=== PATIENT | female | born 1930 | race Caucasian/White ===

== ENCOUNTER → 2017-01-28 | Outpatient (CLI) | payer MEDICARE, BC | LOC: MW.CHFP 14:14 | PROVIDERS: ATTEND Physician Assistant | DX: R79.0 Abnormal level of blood mineral (principal); J44.9 Chronic obstructive pulmonary disease, unspecified | CPT/HCPCS: 36415; 83735; 99214 ==

== ENCOUNTER → 2017-01-31 | Outpatient (CLI) | payer MEDICARE, BC | LOC: MW.CHFP 08:00 | PROVIDERS: ATTEND Physician Assistant | DX: Z99.81 Dependence on supplemental oxygen (principal) ==

== ENCOUNTER → 2017-02-26 | Outpatient (CLI) | payer MEDICARE, BC | LOC: MW.CHIM 08:00 | PROVIDERS: ATTEND Internal Medicine | DX: I25.10 Atherosclerotic heart disease of native coronary artery without angina pectoris (principal); I50.9 Heart failure, unspecified; I10 Essential (primary) hypertension; E78.00 Pure hypercholesterolemia, unspecified | CPT/HCPCS: 99214 ==

== ENCOUNTER 2017-09-23 10:21 | Emergency (ER) | payer MEDICARE, BC ==
[2017-09-23] MEDS ORDERED: Sodium Chloride 0.9% 10 ML Syringe FLUSH PRN (10:23)
[2017-09-23] MEDS ORDERED: Sodium Chloride 0.9% 2.5 ML Syringe FLUSH PRN (10:23)
--- NOTE | 2017-09-23 10:31 | EDM.PDOC ---
ED HPI GENERAL MEDICAL PROBLEM - General Chief Complaint: Neuro Symptoms/Deficits Stated Complaint: LEFT SIDED WEAKNESS Time Seen by Provider: 09/23/17 10:22 - History of Present Illness INITIAL COMMENTS - FREE TEXT/NARRATIVE: HISTORY AND PHYSICAL: History of present illness: The patient is a 86-year-old female with a history of hypertension COPD CHF dyslipidemia MRI coronary artery disease and hypothyroidism who says that she has had TIAs in the past with the last one being 3 years ago and presents via EMS after having weakness in her left upper and lower extremity that started at 9:50 AM, 35 minutes ago at the time of this dictation. The patient states she got up at 4 AM and had a normal morning and when the symptoms started she was doing her normal activities. She has no speech changes she is not confused and she has no facial droop. She tells me that her leg is improving somewhat but she is unclear only stating that she was not able to walk on it earlier and now she is able to move it. She said she never fell passed out or blacked out and does have a headache but feels a little lightheaded and dizzy. She has no chest pain shortness of breath abdominal pain vomiting fevers chills or pain in her extremities. She has no neck or back pain. Accu-Chek per EMS was normal. Review of systems: As per history of present illness and below otherwise all systems reviewed and negative. Past medical history: As per history of present illness and as reviewed below otherwise noncontributory. Surgical history: As per history of present illness and as reviewed below otherwise noncontributory. Social history: No reported history of drug or alcohol abuse. Family history: As per history of present illness and as reviewed below otherwise noncontributory. Physical exam: Gen.: Well-developed well-nourished female who is nontoxic and speaking clearly and easily in the ED and moves in the bed without assistance with the exception of the left upper extremity. HEENT: Atraumatic, normocephalic, pupils reactive, negative for conjunctival pallor or scleral icterus, mucous membranes moist, throat clear, neck supple, nontender, trachea midline. Lungs: Clear to auscultation to manage breath sounds in the bases, breath sounds equal bilaterally, chest nontender. Heart: S1S2, regular rate and rhythm no overt murmurs Abdomen: Soft, nondistended, nontender. Negative for masses or hepatosplenomegaly. Slightly hypoactive bowel sounds and well-healed scars on the abdominal wall are seen. Pelvis: Stable nontender. Genitourinary: Deferred. Rectal: Deferred. Extremities: Atraumatic, negative for cords or calf pain. Neurovascular unremarkable. No pedal edema or leg asymmetry Neuro: Awake, alert, oriented. Cranial nerves II through XII unremarkable. Dorsi and plantar flexion is intact 5/5 inclusive of the great toe bilaterally. There is no drift in the left leg. 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 Speech is intact. Diagnostics: NIHSS, EKG CBC CMP INR TSH troponin UA chest x-ray CT scan of the head Therapeutics: IV O2 monitor, TPA 1024: Dr. Garcia our neurologist on-call was immediately contacted about this case after my evaluation. She says that even though her leg symptoms may be improving she has significant deficits and that if she is not a risk for TPA she would consider giving that pending the CAT scan results. I will recontact her after the patient's CT scan is known and we are able to reevaluate the patient. 1058: CT scan report was called to me by Dr. Mina is negative for any bleed or mass. Dr. Garcia is currently in the ER evaluating the patient as a TPA candidate or not. The patient's stroke scale was a 5 per nursing and my evaluation. We are having great difficulties getting an IV and blood drawn from this patient so and seizures coming to help and assist as blood work will be necessary for decisions for TPA. 1110: Dr. Garcia has interviewed the patient and spoken with family and feels that the last time the patient was seen normal was 9:30 AM and that despite her stroke scale of 6 she feels that her weakness and deficit is profound enough that she merits TPA. She has talked about the risks and benefits with the family and the patient and they are agreeable. I discussed with the family and the patient that with the TPA administration and she will need to be transferred to [facility] in [place] and she is nervous about this but is agreeable. IV access is benefiting by anesthesia and labs are pending. Dr. Garcia does not feel that we need to hold TPA administration for the labs. Fight team has. been notified and is in route. 1119: Case was discussed with Dr. Chapman in the ER at [facility] accepts the patient. He is aware of our care plan. Please note that I will follow-up all lab tests as they become available until the patient is transferred. We will forward all testing results and imaging to the receiving hospital Critical care time excluding procedures: 35min Impression: Left sided weakness, acute CVA symptomatology Definitive disposition and diagnosis as appropriate pending reevaluation and review of above. - Related Data Allergies Allergy/AdvReac Type Severity Reaction Status Date / Time clarithromycin [From Biaxin] Allergy Cannot Verified 12/03/16 16:37 Remember metronidazole Allergy Cannot Verified 12/03/16 16:37 Remember oxaprozin [From Daypro] Allergy Cannot Verified 12/03/16 16:37 Remember Penicillins Allergy Swelling Verified 12/03/16 16:37 sulfasalazine Allergy Cannot Verified 12/03/16 16:37 [From Azulfidine] Remember Home Meds: Home Meds LORazepam 0.5 mg PO DAILY PRN 09/24/14 [History] Potassium Chloride 10 meq PO DAILY 09/24/14 [History] Sertraline [Zoloft] 100 mg PO DAILY 09/24/14 [History] Lutein/Min/Vit C/Vit E Acetate [Ocuvite Lutein] 1 tab PO DAILY 08/30/15 [History ] Calcium/Magnesium/Zinc [Calcium & Magnesium plus Zinc] 1 tab PO DAILY 12/03/16 [ History] Levothyroxine [Synthroid] 100 mcg PO ACBREAKFAST 12/03/16 [History] Magnesium Oxide 400 mg PO BID #60 tablet 12/05/16 [Rx] Metoprolol Succinate [Toprol XL] 25 mg PO BEDTIME #30 tab.er 12/05/16 [Rx] Albuterol [Ventolin HFA] 1 - 2 inhalation IH Q4H PRN 09/23/17 [History] Aspirin 81 mg PO BRK 09/23/17 [History] Furosemide [Lasix] 20 mg PO DAILY 09/23/17 [History] Losartan [Cozaar] 100 mg PO DAILY 09/23/17 [History] Nitroglycerin [Nitrostat] 0.4 mg SL ASDIRECTED PRN 09/23/17 [History] Umeclidinium Brm/Vilanterol Tr [Anoro Ellipta 62.5-25 Mcg INH] 1 inhalation IH DAILY 09/23/17 [History] amLODIPine [Norvasc] 5 mg PO DAILY 09/23/17 [History] atorvaSTATin [Lipitor] 20 mg PO BEDTIME 09/23/17 [History] Past Medical History HEENT History: Reports: Cataract, Impaired Vision, Macular Degeneration, Other ( See Below) Other HEENT History: Bilateral Hearing aids, when out [employer] on LEFT; vertigo Cardiovascular History: Reports: Angina, Arrhythmia, Heart Failure, High Cholesterol, Hypertension, NM Other Cardiovascular History: mini stroke 10 years ago Respiratory History: Reports: COPD Other Respiratory History: on CPAP Genitourinary History: Reports: Urinary Incontinence 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: Musculoskeletal History: Reports: Fracture Other Musculoskeletal History: hx: Fractured wrists, fractured foot Neurological History: Reports: CVA, Vertigo Psychiatric History: Reports: Anxiety, Depression Endocrine/Metabolic History: Reports: Hypothyroidism Oncologic (Cancer) History: Reports: Squamous Cell Carcinoma Other Oncologic History: hx: Skin cancer removed, "eye cancer" Dermatologic History: Reports: Eczema - Past Surgical History HEENT Surgical History: Reports: Cataract Surgery, Other (See Below) Female Surgical History: Reports: Other (See Below) Endocrine Surgical History: Reports: Other (See Below) Musculoskeletal Surgical History: Reports: Shoulder Replacement Social & Family History - Family History Family Medical History: Noncontributory Cardiac: Reports: NM Psychiatric: Reports: Anxiety, Depression Oncologic: Reports: Bone, Colon, Leukemia, Skin - Tobacco Use Smoking Status *Q: Never Smoker Second Hand Smoke Exposure: No - Caffeine Use Caffeine Use: Reports: Tea Caffeine Use Comment: rarely drinks tea - Alcohol Use Days Per Week of Alcohol Use: 0 - Recreational Drug Use Recreational Drug Use: No Drug Use in Last 12 Months: No ED ROS GENERAL - Review of Systems Review Of Systems: ROS reveals no pertinent complaints other than HPI. ED EXAM, GENERAL - Physical Exam Exam: See Below (See dictation) Course - Vital Signs Last Recorded V/S: Last Vital Signs Temp Pulse Resp BP Pulse Ox 92 L 09/23/17 10:28 - Orders/Labs/Meds Orders: Active Orders 24 hr Category Date Time Status Cardiac Monitoring [RC] . DIRECTED Care 09/23/17 10:23 Active Communication Order [RC] STAT Care 09/23/17 10:26 Active EKG Documentation Completion [RC] STAT Care 09/23/17 10:23 Active Notify Provider Consults [RC] ASDIRECTED Care 09/23/17 10:59 Active Oxygen Therapy, ED [RC] ASDIRECTED Care 09/23/17 10:23 Active Pulse Oximetry [RC] ASDIRECTED Care 09/23/17 10:23 Active Consult to Physician [CONS] Stat Cons 09/23/17 10:59 Active Chest 1V Frontal [CR] Stat Exams 09/23/17 10:26 Ordered CBC WITH AUTO DIFF [HEME] Stat Lab 09/23/17 10:23 Ordered COMPREHENSIVE METABOLIC PN,CMP [CHEM] Stat Lab 09/23/17 10:23 Ordered INR,PT,PROTHROMBIN TIME [COAG] Stat Lab 09/23/17 10:23 Ordered TROPONIN I [CHEM] Stat Lab 09/23/17 10:23 Ordered TSH [CHEM] Stat Lab 09/23/17 10:23 Ordered UA W/MICROSCOPIC [URIN] Stat Lab 09/23/17 10:24 Uncollected Sodium Chloride 0.9% [Normal Saline] 1,000 ml Med 09/23/17 11:14 Active IV NOW Sodium Chloride 0.9% [Saline Flush] Med 09/23/17 10:23 Active 10 ml FLUSH ASDIRECTED PRN Sodium Chloride 0.9% [Saline Flush] Med 09/23/17 10:23 Active 2.5 ml FLUSH ASDIRECTED PRN Saline Lock Insert [OM.PC] Stat Oth 09/23/17 10:23 Ordered Medication Orders Sodium Chloride (Normal Saline) 1,000 mls @ 30 mls/hr IV NOW STA Stop: 09/24/17 20:33 Sodium Chloride (Saline Flush) 10 ml FLUSH ASDIRECTED PRN PRN Reason: Keep Vein Open Sodium Chloride (Saline Flush) 2.5 ml FLUSH ASDIRECTED PRN PRN Reason: Keep Vein Open Meds: Medications Generic Name Dose Route Start Last Admin Trade Name Freq PRN Reason Stop Dose Admin Sodium Chloride 1,000 mls @ 30 mls/hr 09/23/17 11:14 Normal Saline IV 09/24/17 20:33 NOW STA Sodium Chloride 10 ml 09/23/17 10:23 Saline Flush FLUSH ASDIRECTED PRN Keep Vein Open Sodium Chloride 2.5 ml 09/23/17 10:23 Saline Flush FLUSH ASDIRECTED PRN Keep Vein Open Departure - Departure Time of Disposition: 11:23 Disposition: DC/Tfer to Acute Hospital 02 Condition: Good Clinical Impression: Left-sided weakness, Acute CVA (cerebrovascular accident) - Discharge Information Referrals: Vaughn Clayton MD [Primary Care Provider] - Forms: ED Department Discharge - My Orders Last 24 Hours: My Active Orders 09/23/17 10:23 Cardiac Monitoring [RC] . DIRECTED EKG Documentation Completion [RC] STAT Oxygen Therapy, ED [RC] ASDIRECTED Pulse Oximetry [RC] ASDIRECTED CBC WITH AUTO DIFF [HEME] Stat COMPREHENSIVE METABOLIC PN,CMP [CHEM] Stat INR,PT,PROTHROMBIN TIME [COAG] Stat TROPONIN I [CHEM] Stat TSH [CHEM] Stat Sodium Chloride 0.9% [Saline Flush] 10 ml FLUSH ASDIRECTED PRN Sodium Chloride 0.9% [Saline Flush] 2.5 ml FLUSH ASDIRECTED PRN Saline Lock Insert [OM.PC] Stat 09/23/17 10:24 UA W/MICROSCOPIC [URIN] Stat 09/23/17 10:26 Communication Order [RC] STAT Chest 1V Frontal [CR] Stat 09/23/17 10:59 Notify Provider Consults [RC] ASDIRECTED Consult to Physician [CONS] Stat 09/23/17 11:14 Sodium Chloride 0.9% [Normal Saline] 1,000 ml IV NOW - Assessment/Plan Last 24 Hours: My Active Orders 09/23/17 10:23 Cardiac Monitoring [RC] . DIRECTED EKG Documentation Completion [RC] STAT Oxygen Therapy, ED [RC] ASDIRECTED Pulse Oximetry [RC] ASDIRECTED CBC WITH AUTO DIFF [HEME] Stat COMPREHENSIVE METABOLIC PN,CMP [CHEM] Stat INR,PT,PROTHROMBIN TIME [COAG] Stat TROPONIN I [CHEM] Stat TSH [CHEM] Stat Sodium Chloride 0.9% [Saline Flush] 10 ml FLUSH ASDIRECTED PRN Sodium Chloride 0.9% [Saline Flush] 2.5 ml FLUSH ASDIRECTED PRN Saline Lock Insert [OM.PC] Stat 09/23/17 10:24 UA W/MICROSCOPIC [URIN] Stat 09/23/17 10:26 Communication Order [RC] STAT Chest 1V Frontal [CR] Stat 09/23/17 10:59 Notify Provider Consults [RC] ASDIRECTED Consult to Physician [CONS] Stat 09/23/17 11:14 Sodium Chloride 0.9% [Normal Saline] 1,000 ml IV NOW
--- NOTE | 2017-09-23 10:55 | CT ---
EXAMINATION: Non contrast CT head. Coronal and sagittal reformats. HISTORY: Pain FINDINGS: No evidence of intra or extra axial hemorrhage, mass, midline shift, hydrocephalus or edema. Mild ge neralized atrophy and moderate symmetric prominence of the ventricles. Periventricular lucencies note d likely small vessel ischemic changes. No hypoattenuation changes in the major vascular territories to suggest acute infarct. No abnormal intracranial calcifications are detected. Basilar calcifications are noted. Paranasal si nuses and mastoid air cells are well aerated without substantial findings. Pituitary fossa appears unremarkable. Calvarium is intact. No evidence of skull fracture. IMPRESSION: 1. No acute intracranial findings. 2. Generalized atrophy and small vessel ischemic changes. The findings were discussed with the patient at 10:52 AM.
[2017-09-23] MEDS ORDERED: Sodium Chloride 0.9% 1,000 ML IV STA (11:14)
[2017-09-23] MEDS ORDERED: ALTEPLASE IV ONE (11:30)
--- NOTE | 2017-09-23 11:30 | PCM.SN ---
- Free Text/Narrative Note: Called by nursing as they have been unable to obtain PIV access. 22g PIV started to Rt Upper arm and 20g PIV started to Lt wrist. Both secured with tape and tegaderm.
[2017-09-23 12:00] VITALS: BP 135/85
--- NOTE | 2017-09-23 12:00 | CR ---
EXAMINATION: Portable chest radiograph. HISTORY: Shortness of breath. FINDINGS: The trachea is midline. The cardiomediastinal silhouette is within normal limits. No pulmonary infilt rates, effusions or pneumothorax. Left glenohumeral hardware noted. IMPRESSION: No acute cardiopulmonary process.
[2017-09-23 12:01] LABS: CHLORIDE,CL 111 mmol/L (98-110); SODIUM,NA 138 mmol/L (136-146)
--- NOTE | 2017-09-23 12:44 | EDM.PDOC ---
ED HPI GENERAL MEDICAL PROBLEM - General Chief Complaint: Neuro Symptoms/Deficits Stated Complaint: LEFT SIDED WEAKNESS Time Seen by Provider: 09/23/17 10:22 - History of Present Illness INITIAL COMMENTS - FREE TEXT/NARRATIVE: This is an 86-year-old woman with history of hypertension, COPD, CHF, hyperlipidemia, history of TIAs presenting with left-sided weakness and numbness. She is not sure when symptoms started, but her daughter notes that since it started about 9:30. She reports that she was at her baseline prior to this. The first thing she noticed that she couldn't lift her left arm. She also noted left leg weakness, which since improved, but she continues to have inability to lift her left arm. She denies any chest pain, shortness of breath. Her last TIA stroke was 3 years ago and was associated with no residual deficits. She denies any history of bleeding and her brain or otherwise. No GI or bleeding. No history of aneurysms, no recent surgeries. CT head completed in the emergency department showed no evidence of acute hemorrhage or acute stroke. Global atrophy was noted. Blood glucose was normal. Blood pressure 135/85 Treatments GLASS ARTIST: Reports: Other (see below) Other Treatments GLASS ARTIST: BG 131 - Related Data Allergies Allergy/AdvReac Type Severity Reaction Status Date / Time clarithromycin [From Biaxin] Allergy Cannot Verified 12/03/16 16:37 Remember metronidazole Allergy Cannot Verified 12/03/16 16:37 Remember oxaprozin [From Daypro] Allergy Cannot Verified 12/03/16 16:37 Remember Penicillins Allergy Swelling Verified 12/03/16 16:37 sulfasalazine Allergy Cannot Verified 12/03/16 16:37 [From Azulfidine] Remember Home Meds: Home Meds LORazepam 0.5 mg PO DAILY PRN 09/24/14 [History] Potassium Chloride 10 meq PO DAILY 09/24/14 [History] Sertraline [Zoloft] 100 mg PO DAILY 09/24/14 [History] Lutein/Min/Vit C/Vit E Acetate [Ocuvite Lutein] 1 tab PO DAILY 08/30/15 [History ] Calcium/Magnesium/Zinc [Calcium & Magnesium plus Zinc] 1 tab PO DAILY 12/03/16 [ History] Levothyroxine [Synthroid] 100 mcg PO ACBREAKFAST 12/03/16 [History] Magnesium Oxide 400 mg PO BID #60 tablet 12/05/16 [Rx] Metoprolol Succinate [Toprol XL] 25 mg PO BEDTIME #30 tab.er 12/05/16 [Rx] Albuterol [Ventolin HFA] 1 - 2 inhalation IH Q4H PRN 09/23/17 [History] Aspirin 81 mg PO BRK 09/23/17 [History] Furosemide [Lasix] 20 mg PO DAILY 09/23/17 [History] Losartan [Cozaar] 100 mg PO DAILY 09/23/17 [History] Nitroglycerin [Nitrostat] 0.4 mg SL ASDIRECTED PRN 09/23/17 [History] Umeclidinium Brm/Vilanterol Tr [Anoro Ellipta 62.5-25 Mcg INH] 1 inhalation IH DAILY 09/23/17 [History] amLODIPine [Norvasc] 5 mg PO DAILY 09/23/17 [History] atorvaSTATin [Lipitor] 20 mg PO BEDTIME 09/23/17 [History] Past Medical History HEENT History: Reports: Cataract, Impaired Vision, Macular Degeneration, Other ( See Below) Other HEENT History: Bilateral Hearing aids, when out Best Hearing on LEFT; vertigo Cardiovascular History: Reports: Angina, Arrhythmia, Heart Failure, High Cholesterol, Hypertension, [place] Other Cardiovascular History: mini stroke 10 years ago Respiratory History: Reports: COPD Other Respiratory History: on CPAP Gastrointestinal History: Reports: Diverticulosis Genitourinary History: Reports: Urinary Incontinence 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: Musculoskeletal History: Reports: Fracture Other Musculoskeletal History: hx: Fractured wrists, fractured foot Neurological History: Reports: CVA, Vertigo Psychiatric History: Reports: Anxiety, Depression Endocrine/Metabolic History: Reports: Hypothyroidism Hematologic History: Reports: None Oncologic (Cancer) History: Reports: Squamous Cell Carcinoma Other Oncologic History: hx: Skin cancer removed, "eye cancer" Dermatologic History: Reports: Eczema - Past Surgical History HEENT Surgical History: Reports: Cataract Surgery, Other (See Below) Female Surgical History: Reports: Other (See Below) Endocrine Surgical History: Reports: Other (See Below) Musculoskeletal Surgical History: Reports: Shoulder Replacement Social & Family History - Family History Family Medical History: Noncontributory Cardiac: Reports: [place] Psychiatric: Reports: Anxiety, Depression Oncologic: Reports: Bone, Colon, Leukemia, Skin - Tobacco Use Smoking Status *Q: Never Smoker Second Hand Smoke Exposure: No - Caffeine Use Caffeine Use: Reports: Tea Caffeine Use Comment: rarely drinks tea - Alcohol Use Days Per Week of Alcohol Use: 0 - Recreational Drug Use Recreational Drug Use: No Drug Use in Last 12 Months: No ED ROS GENERAL - Review of Systems Review Of Systems: ROS reveals no pertinent complaints other than HPI. ED EXAM, NEURO - Physical Exam Exam: See Below Comments: Constitutional: No acute distress Psychiatric: Mood/Affect: normal/appropriate Neurological: Mental Status: General: Normal activity, good hygiene, appropriate appearance. Level of consciousness: Awake, alert. Naming and repetition intact. Description of stroke scale pictures demonstrated no neglect Cranial Nerves: Pupils equally round and reactive to light. Visual anderson full to confrontation. Gaze conjugate, EOMI. Sensation intact and symmetric to light touch. Questionable subtle left facial droop. Palate elevates symmetrically. Normal shrug bilaterally. Tongue protrudes midline Motor: Left deltoid 3, biceps 2, triceps 2, wrist extension 2, finger extension 2, finger abduction 0, left hip flexor 4+, left knee flexor 4+, left ankle dorsiflexor 4, left knee extensors 5.Power is 5/5 throughout proximal and distal muscles on the right. Sensation: Sensation is relatively decreased to vibratory sense and light touch in the right upper compared to left upper limb. Sensation intact and symmetric to temperature in distal lower limbs. No sensory extinction in upper or lower limbs. Coordination: Finger to nose cannot be completed on the left due to weakness, heel to hansen impaired on the left, likely due to weakness Course - Vital Signs Last Recorded V/S: Last Vital Signs Temp 36.7 C 09/23/17 11:50 Pulse 98 09/23/17 11:50 Resp 22 H 09/23/17 11:50 BP 135/85 09/23/17 11:50 Pulse Ox 95 09/23/17 11:50 - Orders/Labs/Meds Orders: Active Orders 24 hr Category Date Time Status Cardiac Monitoring [RC] . DIRECTED Care 09/23/17 10:23 Active Communication Order [RC] STAT Care 09/23/17 10:26 Active EKG Documentation Completion [RC] STAT Care 09/23/17 10:23 Active Notify Provider Consults [RC] ASDIRECTED Care 09/23/17 10:59 Active Oxygen Therapy, ED [RC] ASDIRECTED Care 09/23/17 10:23 Active Pulse Oximetry [RC] ASDIRECTED Care 09/23/17 10:23 Active Consult to Physician [CONS] Stat Cons 09/23/17 10:59 Active CBC WITH AUTO DIFF [HEME] Stat Lab 09/23/17 10:23 Ordered COMPREHENSIVE METABOLIC PN,CMP [CHEM] Stat Lab 09/23/17 11:40 Results INR,PT,PROTHROMBIN TIME [COAG] Stat Lab 09/23/17 10:23 Ordered TROPONIN I [CHEM] Stat Lab 09/23/17 11:40 Results TSH [CHEM] Stat Lab 09/23/17 11:40 Results UA W/MICROSCOPIC [URIN] Stat Lab 09/23/17 11:44 Results Sodium Chloride 0.9% [Normal Saline] 1,000 ml Med 09/23/17 11:14 Active IV NOW Sodium Chloride 0.9% [Saline Flush] Med 09/23/17 10:23 Active 10 ml FLUSH ASDIRECTED PRN Sodium Chloride 0.9% [Saline Flush] Med 09/23/17 10:23 Active 2.5 ml FLUSH ASDIRECTED PRN Saline Lock Insert [OM.PC] Stat Oth 09/23/17 10:23 Ordered Medication Orders Sodium Chloride (Normal Saline) 1,000 mls @ 30 mls/hr IV NOW STA Stop: 09/24/17 20:33 Last Admin: 09/23/17 11:19 Dose: 30 mls/hr Sodium Chloride (Saline Flush) 10 ml FLUSH ASDIRECTED PRN PRN Reason: Keep Vein Open Sodium Chloride (Saline Flush) 2.5 ml FLUSH ASDIRECTED PRN PRN Reason: Keep Vein Open Labs: Laboratory Tests 09/23/17 09/23/17 Range/Units 11:40 11:44 Sodium 138 (136-146) mmol/L Potassium 4.5 (3.5-5.1) mmol/L Chloride 111 H (98-110) mmol/L Carbon Dioxide 19 L (21-31) mmol/L BUN 16 (6.0-23.0) mg/dL Creatinine 0.8 (0.6-1.5) mg/dL Est Cr Clr Drug Dosing 37.38 mL/min Estimated GFR (MDRD) > 60.0 ml/min Glucose 103 (60-110) mg/dL Calcium 8.8 (8.8-10.8) mg/dL Total Bilirubin 0.6 (0.1-1.5) mg/dL AST 23 (5-40) IU/L ALT 17 (8-54) IU/L Alkaline Phosphatase 75 (40-150) Troponin I < 0.10 (0.0-0.29) NG/ML Total Protein 6.6 (6.0-8.0) g/dL Albumin 3.4 (3.4-4.8) g/dL Globulin 3.2 (2.0-3.5) g/dL Albumin/Globulin Ratio 1.1 L (1.3-2.8) Urine Color YELLOW Urine Appearance CLEAR Urine pH 5.5 (5.0-8.0) Ur Specific [place] 1.015 (1.001-1.035) Urine Protein NEGATIVE (NEGATIVE) mg/dL Urine Glucose (UA) NEGATIVE (NEGATIVE) mg/dL Urine Ketones NEGATIVE (NEGATIVE) mg/dL Urine Occult Blood NEGATIVE (NEGATIVE) Urine Nitrite POSITIVE H (NEGATIVE) Urine Bilirubin NEGATIVE (NEGATIVE) Urine Urobilinogen 0.2 (<2.0) EU/dL Ur Leukocyte Esterase NEGATIVE (NEGATIVE) Meds: Medications Generic Name Dose Route Start Last Admin Trade Name Freq PRN Reason Stop Dose Admin Sodium Chloride 1,000 mls @ 30 mls/hr 09/23/17 11:14 09/23/17 11:19 Normal Saline IV 09/24/17 20:33 30 mls/hr NOW STA Administration Sodium Chloride 10 ml 09/23/17 10:23 Saline Flush FLUSH ASDIRECTED PRN Keep Vein Open Sodium Chloride 2.5 ml 09/23/17 10:23 Saline Flush FLUSH ASDIRECTED PRN Keep Vein Open Discontinued Medications Generic Name Dose Route Start Last Admin Trade Name Freq PRN Reason Stop Dose Admin Alteplase, Recombinant Confirm 09/23/17 11:20 Activase Administered 09/23/17 11:21 Dose 100 mg .ROUTE .STK-MED ONE Departure - Departure Time of Disposition: 11:15 Disposition: DC/Tfer to Acute Hospital 02 Condition: Good Clinical Impression: Left-sided weakness, Acute CVA (cerebrovascular accident) - Discharge Information Referrals: Vaughn Clayton MD [Primary Care Provider] - Forms: ED Department Discharge - Problem List Review Problem List Initiated/Reviewed/Updated: Yes - Assessment/Plan Plan: This is an 86-year-old with a history of CHF, hyperlipidemia, prior TIAs presenting with left arm greater than face and leg weakness most consistent with acute stroke. She is within the window for TPA, with no apparent contraindications. Due to difficulty finding a vein, there is a delay in obtaining labs, but I do not recommend delaying tPA further as she's had no history of bleeding diathesis and she is not on anticoagulating medication. She will require transfer following TPA. She may be a candidate for endovascular thrombectomy if she does not improve with TPA. -Maintain blood pressure below 185/105. -Avoid arterial punctures, central line, mark. -Hold aspirin and any anticoagulation for 24 hours. -She will need a repeat head CT 24 hours or sooner if any deterioration.
== END 2017-09-23 11:50 ==
LOC: MW.ED 10:21
DX: I63.9 Cerebral infarction, unspecified (principal); G81.94 Hemiplegia, unspecified affecting left nondominant side; I11.0 Hypertensive heart disease with heart failure; I50.9 Heart failure, unspecified; F32.9 Major depressive disorder, single episode, unspecified; E03.9 Hypothyroidism, unspecified; E78.5 Hyperlipidemia, unspecified; J44.9 Chronic obstructive pulmonary disease, unspecified; Z79.899 Other long term (current) drug therapy; Z88.0 Allergy status to penicillin; Z88.1 Allergy status to other antibiotic agents; Z88.8 Allergy status to other drugs, medicaments and biological substances; Z79.82 Long term (current) use of aspirin
CPT/HCPCS: 36415; 70450; 71010; 80053; 81001; 84484; 93005; 96374; 99291; 99292; J2997; J7040; 36410; 99284

== ENCOUNTER 2018-07-09 18:06 | Inpatient (IN) | payer MEDICARE, BC ==
[2018-07-09] MEDS ORDERED: Sodium Chloride 0.9% 2.5 ML Syringe FLUSH PRN (18:11)
[2018-07-09] MEDS ORDERED: Sodium Chloride 0.9% 500 ML IV ONE (18:11)
[2018-07-09] MEDS ORDERED: Sodium Chloride 0.9% 10 ML Syringe FLUSH PRN (18:11)
--- NOTE | 2018-07-09 18:27 | EDM.PDOC ---
ED HPI GENERAL MEDICAL PROBLEM - General Chief Complaint: Respiratory Problem Stated Complaint: SOB Time Seen by Provider: 07/09/18 18:24 Source of Information: Reports: Patient History Limitations: Reports: No Limitations - History of Present Illness INITIAL COMMENTS - FREE TEXT/NARRATIVE: HISTORY AND PHYSICAL: History of present illness: Patient is an 87-year-old female who arrived by EMS with shortness of breath. Patient states that she has been short of breath for the past week but her kids convinced her today that she needs to go to the ED. She states she has some chest pain that is worse when she coughs. She has been having non-bloody, watery diarrhea x 10 days. States 3-4 episodes per day. She denies any nausea or vomiting. She states that she does have some abdominal pain "in my diverticula" as she points to her left lower quadrant. She denies fevers or chills. Past medical history of CHF, HTN, COPD, CVA. She is on anticoagulation and 2L oxygen at home. Review of systems: As per history of present illness and below otherwise all systems reviewed and negative. Past medical history: As per history of present illness and as reviewed below otherwise noncontributory. Surgical history: As per history of present illness and as reviewed below otherwise noncontributory. Social history: No reported history of drug or alcohol abuse. Family history: As per history of present illness and as reviewed below otherwise noncontributory. Physical exam: General: patient sitting comfortably in no acute distress HEENT: Atraumatic, normocephalic, pupils reactive, negative for conjunctival pallor or scleral icterus, mucous membranes moist, throat clear, neck supple, nontender, trachea midline. Lungs: Clear to auscultation, breath sounds equal bilaterally, chest nontender. Heart: S1S2, regular, negative for clicks, rubs, or JVD. Abdomen: Mild pain to palpation of RLQ. Soft, nondistended, Negative for masses or hepatosplenomegaly. Negative for costovertebral tenderness. Pelvis: Stable nontender. Genitourinary: Deferred. Rectal: Deferred. Extremities: Atraumatic, negative for cords or calf pain. Neurovascular unremarkable. Neuro: Awake, alert, oriented. Cranial nerves II through XII unremarkable. Cerebellum unremarkable. Motor and sensory unremarkable throughout. Exam nonfocal. Notes: Diagnostics: CBC, CMP, troponin, BNP, CXR Therapeutics: 500mL NS IV 40mEq Potassium IV Vancomycin, IV Levaquin Impression: Pneumonia CHF Hypokalemia Plan: Discussed with Dr. Resendez, patient will be admitted to inpatient for pneumonia and CHF. Definitive disposition and diagnosis as appropriate pending reevaluation and review of above. - Related Data Allergies Allergy/AdvReac Type Severity Reaction Status Date / Time clarithromycin [From Biaxin] Allergy Cannot Verified 07/09/18 18:13 Remember metronidazole Allergy Cannot Verified 07/09/18 18:13 Remember oxaprozin [From Daypro] Allergy Cannot Verified 07/09/18 18:13 Remember Penicillins Allergy Swelling Verified 07/09/18 18:13 sulfasalazine Allergy Cannot Verified 07/09/18 18:13 [From Azulfidine] Remember Home Meds: Home Meds Potassium Chloride 10 meq PO DAILY 09/24/14 [History] Sertraline [Zoloft] 100 mg PO DAILY 09/24/14 [History] Metoprolol Succinate [Toprol XL] 25 mg PO BEDTIME #30 tab.er 12/05/16 [Rx] Furosemide [Lasix] 40 mg PO DAILY 09/23/17 [History] Losartan [Cozaar] 100 mg PO DAILY 09/23/17 [History] amLODIPine [Norvasc] 5 mg PO DAILY 09/23/17 [History] Clopidogrel Bisulfate [Clopidogrel] 75 mg PO DAILY 06/24/18 [History] Digoxin 0.25 mg PO DAILY 06/24/18 [History] Levothyroxine [Synthroid] 100 mcg PO ACBREAKFAST 06/24/18 [History] Pantoprazole [ProTONIX] 40 mg PO ACBREAKFAST 06/24/18 [History] Pilocarpine [Pilocar 2% Ophth Soln] 1 drop EYEBOTH DAILY 06/24/18 [History] Umeclidinium Brm/Vilanterol Tr [Anoro Ellipta 62.5-25 Mcg INH] 1 puff INH DAILY 06/24/18 [History] Past Medical History HEENT History: Reports: Cataract, Impaired Vision, Macular Degeneration, Other ( See Below) Other HEENT History: Bilateral Hearing aids, when out Best Hearing on LEFT; vertigo Cardiovascular History: Reports: Angina, Arrhythmia, Heart Failure, High Cholesterol, Hypertension, [place] Other Cardiovascular History: mini stroke 10 years ago Respiratory History: Reports: COPD Other Respiratory History: on CPAP Gastrointestinal History: Reports: Diverticulosis Genitourinary History: Reports: Urinary Incontinence 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: Musculoskeletal History: Reports: Fracture Other Musculoskeletal History: hx: Fractured wrists, fractured foot Neurological History: Reports: CVA, Vertigo Psychiatric History: Reports: Anxiety, Depression Endocrine/Metabolic History: Reports: Hypothyroidism Hematologic History: Reports: None Oncologic (Cancer) History: Reports: Squamous Cell Carcinoma Other Oncologic History: hx: Skin cancer removed, "eye cancer" Dermatologic History: Reports: Eczema - Infectious Disease History Infectious Disease History: Reports: Chicken Pox, Measles, Mumps, Shingles - Past Surgical History HEENT Surgical History: Reports: Cataract Surgery, Other (See Below) Female Surgical History: Reports: Other (See Below) Endocrine Surgical History: Reports: Other (See Below) Musculoskeletal Surgical History: Reports: Shoulder Replacement Social & Family History - Family History Family Medical History: Noncontributory Cardiac: Reports: [place] Psychiatric: Reports: Anxiety, Depression Oncologic: Reports: Bone, Colon, Leukemia, Skin - Tobacco Use Smoking Status *Q: Never Smoker Second Hand Smoke Exposure: No - Caffeine Use Caffeine Use: Reports: Tea Caffeine Use Comment: rarely drinks tea - Recreational Drug Use Recreational Drug Use: No ED ROS GENERAL - Review of Systems Review Of Systems: ROS reveals no pertinent complaints other than HPI. ED EXAM, GENERAL - Physical Exam Exam: See Below (see dictation) Course - Vital Signs Last Recorded V/S: Last Vital Signs Temp 36.1 C 07/09/18 18:09 Pulse 86 07/09/18 18:09 Resp 20 07/09/18 18:09 BP 153/70 H 07/09/18 18:09 Pulse Ox 94 L 07/09/18 18:09 - Orders/Labs/Meds Orders: Active Orders 24 hr Category Date Time Status Cardiac Monitoring [RC] . DIRECTED Care 07/09/18 18:11 Active EKG Documentation Completion [RC] STAT Care 07/09/18 18:12 Active Oxygen Therapy [RC] ASDIRECTED Care 07/09/18 18:11 Active Pulse Oximetry [RC] ASDIRECTED Care 07/09/18 18:11 Active Chest 1V Frontal [CR] Stat Exams 07/09/18 18:11 Taken UA W/MICROSCOPIC [URIN] Stat Lab 07/09/18 18:12 Ordered Sodium Chloride 0.9% [Saline Flush] Med 07/09/18 18:11 Active 10 ml FLUSH ASDIRECTED PRN Sodium Chloride 0.9% [Saline Flush] Med 07/09/18 18:11 Active 2.5 ml FLUSH ASDIRECTED PRN Saline Lock Insert [OM.PC] Stat Oth 07/09/18 18:11 Ordered Medication Orders Sodium Chloride (Saline Flush) 10 ml FLUSH ASDIRECTED PRN PRN Reason: Keep Vein Open Sodium Chloride (Saline Flush) 2.5 ml FLUSH ASDIRECTED PRN PRN Reason: Keep Vein Open Labs: Laboratory Tests 07/09/18 07/09/18 07/09/18 Range/Units 18:49 18:49 18:49 WBC 13.49 H (4.0-11.0) K/uL RBC 4.48 (4.30-5.90) M/uL Hgb 13.1 (12.0-16.0) g/dL Hct 38.8 (36.0-46.0) % MCV 86.6 (80.0-98.0) fL MCH 29.2 (27.0-32.0) pg MCHC 33.8 (31.0-37.0) g/dL RDW Std Deviation 48.1 (28.0-62.0) fl RDW Coeff of Gillian 15 (11.0-15.0) % Plt Count 172 (150-400) K/uL MPV 9.90 (7.40-12.00) fL Neut % (Auto) 89.6 H (48.0-80.0) % Lymph % (Auto) 4.2 L (16.0-40.0) % [place] % (Auto) 6.1 (0.0-15.0) % Eos % (Auto) 0.0 (0.0-7.0) % Baso % (Auto) 0.1 (0.0-1.5) % Neut # (Auto) 12.1 H (1.4-5.7) K/uL Lymph # (Auto) 0.6 (0.6-2.4) K/uL [place] # (Auto) 0.8 (0.0-0.8) K/uL Eos # (Auto) 0.0 (0.0-0.7) K/uL Baso # (Auto) 0.0 (0.0-0.1) K/uL Nucleated RBC % 0.0 /100WBC Nucleated RBCs # 0 K/uL INR 1.12 Sodium 142 (136-145) mmol/L Potassium 2.6 L (3.5-5.1) mmol/L Chloride 105 (98-107) mmol/L Carbon Dioxide 28.4 (21.0-32.0) mmol/L BUN 10 (7.0-18.0) mg/dL Creatinine 0.8 (0.6-1.0) mg/dL Est Cr Clr Drug Dosing 38.44 mL/min Estimated GFR (MDRD) > 60.0 ml/min Glucose 146 H (74-106) mg/dL Calcium 8.3 L (8.5-10.1) mg/dL Total Bilirubin 1.4 H (0.2-1.0) mg/dL AST 17 (15-37) IU/L ALT 13 L (14-63) IU/L Alkaline Phosphatase 104 (46-116) U/L Troponin I < 0.050 (0.000-0.056) ng/mL B-Natriuretic Peptide (<100) PG/ML Total Protein 6.5 (6.4-8.2) g/dL Albumin 2.4 L (3.4-5.0) g/dL Globulin 4.1 H (2.0-3.5) g/dL Albumin/Globulin Ratio 0.6 L (1.3-2.8) Lipase 61 L (73-393) U/L 07/09/18 Range/Units 19:26 WBC (4.0-11.0) K/uL RBC (4.30-5.90) M/uL Hgb (12.0-16.0) g/dL Hct (36.0-46.0) % MCV (80.0-98.0) fL MCH (27.0-32.0) pg MCHC (31.0-37.0) g/dL RDW Std Deviation (28.0-62.0) fl RDW Coeff of Gillian (11.0-15.0) % Plt Count (150-400) K/uL MPV (7.40-12.00) fL Neut % (Auto) (48.0-80.0) % Lymph % (Auto) (16.0-40.0) % [place] % (Auto) (0.0-15.0) % Eos % (Auto) (0.0-7.0) % Baso % (Auto) (0.0-1.5) % Neut # (Auto) (1.4-5.7) K/uL Lymph # (Auto) (0.6-2.4) K/uL [place] # (Auto) (0.0-0.8) K/uL Eos # (Auto) (0.0-0.7) K/uL Baso # (Auto) (0.0-0.1) K/uL Nucleated RBC % /100WBC Nucleated RBCs # K/uL INR Sodium (136-145) mmol/L Potassium (3.5-5.1) mmol/L Chloride (98-107) mmol/L Carbon Dioxide (21.0-32.0) mmol/L BUN (7.0-18.0) mg/dL Creatinine (0.6-1.0) mg/dL Est Cr Clr Drug Dosing mL/min Estimated GFR (MDRD) ml/min Glucose (74-106) mg/dL Calcium (8.5-10.1) mg/dL Total Bilirubin (0.2-1.0) mg/dL AST (15-37) IU/L ALT (14-63) IU/L Alkaline Phosphatase (46-116) U/L Troponin I (0.000-0.056) ng/mL B-Natriuretic Peptide 674 H (<100) PG/ML Total Protein (6.4-8.2) g/dL Albumin (3.4-5.0) g/dL Globulin (2.0-3.5) g/dL Albumin/Globulin Ratio (1.3-2.8) Lipase (73-393) U/L Meds: Medications Generic Name Dose Route Start Last Admin Trade Name Freq PRN Reason Stop Dose Admin Sodium Chloride 10 ml 07/09/18 18:11 Saline Flush FLUSH ASDIRECTED PRN Keep Vein Open Sodium Chloride 2.5 ml 07/09/18 18:11 Saline Flush FLUSH ASDIRECTED PRN Keep Vein Open Discontinued Medications Generic Name Dose Route Start Last Admin Trade Name Freq PRN Reason Stop Dose Admin Sodium Chloride 500 mls @ 999 mls/hr 07/09/18 18:11 07/09/18 19:29 Normal Saline IV 07/09/18 18:41 999 mls/hr BOLUS ONE Administration Potassium Chloride 40 meq 07/09/18 19:46 Klor-Con M20 PO 07/09/18 19:47 ONETIME ONE Departure - Departure Time of Disposition: 20:24 Disposition: Admitted As Inpatient 66 Condition: Good Clinical Impression: Pneumonia, Hypokalemia CHF (congestive heart failure) Qualifiers: Qualified Code(s): I50.33 - Acute on chronic diastolic (congestive) heart failure - Discharge Information Forms: ED Department Discharge - My Orders Last 24 Hours: My Active Orders 07/09/18 18:11 Cardiac Monitoring [RC] . DIRECTED Oxygen Therapy [RC] ASDIRECTED Pulse Oximetry [RC] ASDIRECTED Chest 1V Frontal [CR] Stat Sodium Chloride 0.9% [Saline Flush] 10 ml FLUSH ASDIRECTED PRN Sodium Chloride 0.9% [Saline Flush] 2.5 ml FLUSH ASDIRECTED PRN Saline Lock Insert [OM.PC] Stat 07/09/18 18:12 EKG Documentation Completion [RC] STAT UA W/MICROSCOPIC [URIN] Stat - Assessment/Plan Last 24 Hours: My Active Orders 07/09/18 18:11 Cardiac Monitoring [RC] . DIRECTED Oxygen Therapy [RC] ASDIRECTED Pulse Oximetry [RC] ASDIRECTED Chest 1V Frontal [CR] Stat Sodium Chloride 0.9% [Saline Flush] 10 ml FLUSH ASDIRECTED PRN Sodium Chloride 0.9% [Saline Flush] 2.5 ml FLUSH ASDIRECTED PRN Saline Lock Insert [OM.PC] Stat 07/09/18 18:12 EKG Documentation Completion [RC] STAT UA W/MICROSCOPIC [URIN] Stat
[2018-07-09 19:32] LABS: CHLORIDE,CL 105 mmol/L (98-107); SODIUM,NA 142 mmol/L (136-145)
[2018-07-09] MEDS ORDERED: Potassium Chloride 20 MEQ Tab.ER PO ONE (19:46)
[2018-07-09] MEDS ORDERED: Levofloxacin/Dextrose 5%-Water 750 MG in Premix Bag 1 BAG IV ONE (20:17)
[2018-07-09] MEDS ORDERED: Nitroglycerin 2% Oint 1 GM UD Packet TOP PRN (22:07)
[2018-07-09] MEDS ORDERED: Nitroglycerin 2% Oint 1 GM UD Packet ONE (22:52)
[2018-07-09] MEDS ORDERED: Metoprolol Tartrate 5 MG in Sodium Chloride 0.9% 50 ML IV ONE (23:16)
[2018-07-09] MEDS ORDERED: Pantoprazole 40 MG Vial IVPUSH ONE (23:18)
[2018-07-09] MEDS ORDERED: Magnesium Sulfate/Water 2 GM in Premix Bag 1 BAG IV ONE (23:18)
[2018-07-09] MEDS ORDERED: Magnesium Sulfate/Water 50 ML ONE (23:43)
[2018-07-10] MEDS ORDERED: Pantoprazole 40 MG Vial ONE (00:18)
[2018-07-10] MEDS ORDERED: Potassium Chloride 20 MEQ Tab.ER ONE (00:18)
[2018-07-10] MEDS ORDERED: Sodium Chloride 0.9% 0 ML ONE (00:18)
[2018-07-10] MEDS ORDERED: Vancomycin 1 GM AdvVial ONE (00:19)
[2018-07-10] MEDS ORDERED: Metoprolol Tartrate 5 MG/5 ML SDV ONE (00:19)
[2018-07-10] MEDS ORDERED: Metoprolol Tartrate 5 MG/5 ML SDV IVPUSH ONE (00:35)
[2018-07-10] MEDS ORDERED: Enoxaparin 40 MG/0.4 ML Syringe ONE (02:12)
[2018-07-10] MEDS: Enoxaparin 40 MG/0.4 ML Syringe SUBCUT SCH (02:25)
[2018-07-10] MEDS ORDERED: Potassium Chloride 20 MEQ Tab.ER PO ONE ×2 (04:00)
[2018-07-10 05:58] LABS: CHLORIDE,CL 107 mmol/L (98-107); SODIUM,NA 144 mmol/L (136-145)
[2018-07-10] MEDS: Pantoprazole 40 MG Tab.CR PO SCH (06:34)
[2018-07-10] MEDS: Levothyroxine 100 MCG Tab PO SCH (06:34)
[2018-07-10] MEDS: amLODIPine 5 MG Tab PO SCH (08:08)
[2018-07-10] MEDS: Digoxin 250 MCG Tab PO SCH (08:09)
[2018-07-10] MEDS: Sertraline 100 MG Tab PO SCH (08:10)
[2018-07-10] MEDS: Losartan 50 MG Tab PO SCH (08:10)
[2018-07-10] MEDS: Potassium Chloride 10 MEQ Tab.ER PO SCH (08:11)
[2018-07-10] MEDS: Clopidogrel 75 MG Tab PO SCH (08:11)
[2018-07-10] MEDS: UMECLIDINIUM BRM INH SCH (08:12)
[2018-07-10] MEDS: VILANTEROL TR INH SCH (08:12)
[2018-07-10] MEDS: PILOCARPINE EYEBOTH SCH (08:12)
[2018-07-10] MEDS ORDERED: Furosemide 20 MG Tab PO SCH (09:00)
[2018-07-10] MEDS ORDERED: methylPREDNISolone Sodium Succinate 125 MG/2 ML SDV IVPUSH ONE (11:01)
[2018-07-10] MEDS ORDERED: Budesonide 0.5 MG/2 ML Neb Susp ONE (11:22)
[2018-07-10] MEDS: Albuterol/Ipratropium 3.0-0.5 MG/3 ML Neb Soln NEB PRN (11:25)
[2018-07-10] MEDS: Budesonide 0.5 MG/2 ML Neb Susp NEB SCH ×2 (11:26→20:49)
--- NOTE | 2018-07-10 14:23 | PCM.HP ---
H&P History of Present Illness - General Date of Service: 07/10/18 Admit Problem/Dx: Admission Diagnosis/Problem Admission Diagnosis/Problem Pneumonia Source of Information: Patient History Limitations: Reports: No Limitations - History of Present Illness Initial Comments - Free Text/Narative: Patient presented to hospital with SOB for the past 1 week , getting worse , associated with wheezing , no fever , no chills.She states she had diarrhea very badly for 2-3 weeks and became very "dehydrated and weak". Has dry cough , no phlegm CXR in ER showed infiltrate in the RT lung , lower and the middle lobe.Patient has history of COPD and CHF.She never smoked but was exposed to passive smoke from her . She was hospitalized in June in the hospital for diarrhea.She has global heart ischemia , also at admission she had a fib with RVR with HR in 130 BPM Onset of Symptoms: Reports: Gradual Duration of Symptoms: Reports: Week(s): Location: Reports: Chest Chest Pain Score (Numeric/FACES): 3 - Related Data Allergies/Adverse Reactions: Allergies Allergy/AdvReac Type Severity Reaction Status Date / Time clarithromycin [From Biaxin] Allergy Cannot Verified 07/09/18 18:13 Remember metronidazole Allergy Cannot Verified 07/09/18 18:13 Remember oxaprozin [From Daypro] Allergy Cannot Verified 07/09/18 18:13 Remember Penicillins Allergy Swelling Verified 07/09/18 18:13 sulfasalazine Allergy Cannot Verified 07/09/18 18:13 [From Azulfidine] Remember Home Medications: Home Meds Potassium Chloride 10 meq PO DAILY 09/24/14 [History] Sertraline [Zoloft] 100 mg PO DAILY 09/24/14 [History] Metoprolol Succinate [Toprol XL] 25 mg PO BEDTIME #30 tab.er 12/05/16 [Rx] Furosemide [Lasix] 40 mg PO DAILY 09/23/17 [History] Losartan [Cozaar] 100 mg PO DAILY 09/23/17 [History] amLODIPine [Norvasc] 5 mg PO DAILY 09/23/17 [History] Clopidogrel Bisulfate [Clopidogrel] 75 mg PO DAILY 06/24/18 [History] Digoxin 0.25 mg PO DAILY 06/24/18 [History] Levothyroxine [Synthroid] 100 mcg PO ACBREAKFAST 06/24/18 [History] Pantoprazole [ProTONIX] 40 mg PO ACBREAKFAST 06/24/18 [History] Pilocarpine [Pilocar 2% Ophth Soln] 1 drop EYEBOTH DAILY 06/24/18 [History] Umeclidinium Brm/Vilanterol Tr [Anoro Ellipta 62.5-25 Mcg INH] 1 puff INH DAILY 06/24/18 [History] Past Medical History HEENT History: Reports: Cataract, Impaired Vision, Macular Degeneration, Other ( See Below) Other HEENT History: Bilateral Hearing aids, when out [facility] on LEFT; vertigo Cardiovascular History: Reports: Angina, Arrhythmia, Heart Failure, High Cholesterol, Hypertension, MS Other Cardiovascular History: mini stroke 10 years ago Respiratory History: Reports: COPD Other Respiratory History: on CPAP Gastrointestinal History: Reports: Diverticulosis Genitourinary History: Reports: Urinary Incontinence TENTER History: Reports: Musculoskeletal History: Reports: Fracture Other Musculoskeletal History: hx: Fractured wrists, fractured foot Neurological History: Reports: CVA, Vertigo Psychiatric History: Reports: Anxiety, Depression Endocrine/Metabolic History: Reports: Hypothyroidism Hematologic History: Reports: None Oncologic (Cancer) History: Reports: Squamous Cell Carcinoma Other Oncologic History: hx: Skin cancer removed, "eye cancer" Dermatologic History: Reports: Eczema - Infectious Disease History Infectious Disease History: Reports: Chicken Pox, Measles, Mumps, Shingles - Past Surgical History HEENT Surgical History: Reports: Cataract Surgery, Other (See Below) Female Surgical History: Reports: Other (See Below) Endocrine Surgical History: Reports: Other (See Below) Musculoskeletal Surgical History: Reports: Shoulder Replacement Social & Family History - Family History Family Medical History: Noncontributory Cardiac: Reports: MS Psychiatric: Reports: Anxiety, Depression Oncologic: Reports: Bone, Colon, Leukemia, Skin - Tobacco Use Smoking Status *Q: Never Smoker Second Hand Smoke Exposure: No - Caffeine Use Caffeine Use: Reports: None Caffeine Use Comment: rarely drinks tea - Recreational Drug Use Recreational Drug Use: No H&P Review of Systems - Review of Systems: Review Of Systems: See Below Exam - Exam Exam: See Below - Vital Signs Vital Signs: Last Vital Signs Temp 97.7 F 07/10/18 12:00 Pulse 80 07/10/18 12:00 Resp 20 07/10/18 12:00 BP 139/69 07/10/18 12:00 Pulse Ox 94 L 07/10/18 12:00 Weight: 167 lb 6.4 oz - Exam General: Alert, Oriented HEENT: Conjunctiva Clear, EACs Clear, EOMI Neck: Supple, Trachea Midline Lungs: Wheezing, Other (using accessory muscles ) GI/Abdominal Exam: Normal Bowel Sounds, Soft, Non-Tender, No Organomegaly, No Distention Back Exam: Normal Inspection Extremities: Normal Inspection - Patient Data Lab Results Last 24 hrs: Laboratory Results - last 24 hr 07/09/18 07/09/18 07/09/18 Range/Units 18:49 18:49 18:49 WBC 13.49 H (4.0-11.0) K/uL RBC 4.48 (4.30-5.90) M/uL Hgb 13.1 (12.0-16.0) g/dL Hct 38.8 (36.0-46.0) % MCV 86.6 (80.0-98.0) fL MCH 29.2 (27.0-32.0) pg MCHC 33.8 (31.0-37.0) g/dL RDW Std Deviation 48.1 (28.0-62.0) fl RDW Coeff of Gillian 15 (11.0-15.0) % Plt Count 172 (150-400) K/uL MPV 9.90 (7.40-12.00) fL Neut % (Auto) 89.6 H (48.0-80.0) % Lymph % (Auto) 4.2 L (16.0-40.0) % Glenn % (Auto) 6.1 (0.0-15.0) % Eos % (Auto) 0.0 (0.0-7.0) % Baso % (Auto) 0.1 (0.0-1.5) % Neut # (Auto) 12.1 H (1.4-5.7) K/uL Lymph # (Auto) 0.6 (0.6-2.4) K/uL Glenn # (Auto) 0.8 (0.0-0.8) K/uL Eos # (Auto) 0.0 (0.0-0.7) K/uL Baso # (Auto) 0.0 (0.0-0.1) K/uL Nucleated RBC % 0.0 /100WBC Nucleated RBCs # 0 K/uL INR 1.12 Sodium 142 (136-145) mmol/L Potassium 2.6 L (3.5-5.1) mmol/L Chloride 105 (98-107) mmol/L Carbon Dioxide 28.4 (21.0-32.0) mmol/L BUN 10 (7.0-18.0) mg/dL Creatinine 0.8 (0.6-1.0) mg/dL Est Cr Clr Drug Dosing 38.44 mL/min Estimated GFR (MDRD) > 60.0 ml/min Glucose 146 H (74-106) mg/dL Calcium 8.3 L (8.5-10.1) mg/dL Phosphorus (2.6-4.7) mg/dL Magnesium (1.8-2.4) mg/dL Total Bilirubin 1.4 H (0.2-1.0) mg/dL AST 17 (15-37) IU/L ALT 13 L (14-63) IU/L Alkaline Phosphatase 104 (46-116) U/L Troponin I < 0.050 (0.000-0.056) ng/mL B-Natriuretic Peptide (<100) PG/ML Total Protein 6.5 (6.4-8.2) g/dL Albumin 2.4 L (3.4-5.0) g/dL Globulin 4.1 H (2.0-3.5) g/dL Albumin/Globulin Ratio 0.6 L (1.3-2.8) Triglycerides (0-200) mg/dL Cholesterol (50-200) mg/dL LDL Cholesterol, Calc (60-180) mg/dL VLDL Cholesterol (5-55) mg/dL HDL Cholesterol (40-60) mg/dL Cholesterol/HDL Ratio (3.3-6.0) Lipase 61 L (73-393) U/L 07/09/18 07/09/18 07/10/18 Range/Units 19:26 20:35 05:30 WBC 12.75 H (4.0-11.0) K/uL RBC 4.26 L (4.30-5.90) M/uL Hgb 12.2 (12.0-16.0) g/dL Hct 37.6 (36.0-46.0) % MCV 88.3 (80.0-98.0) fL MCH 28.6 (27.0-32.0) pg MCHC 32.4 (31.0-37.0) g/dL RDW Std Deviation 50.0 (28.0-62.0) fl RDW Coeff of Gillian 16 H (11.0-15.0) % Plt Count 185 (150-400) K/uL MPV 10.00 (7.40-12.00) fL Neut % (Auto) 89.4 H (48.0-80.0) % Lymph % (Auto) 4.5 L (16.0-40.0) % Glenn % (Auto) 6.0 (0.0-15.0) % Eos % (Auto) 0.0 (0.0-7.0) % Baso % (Auto) 0.1 (0.0-1.5) % Neut # (Auto) 11.4 H (1.4-5.7) K/uL Lymph # (Auto) 0.6 (0.6-2.4) K/uL Glenn # (Auto) 0.8 (0.0-0.8) K/uL Eos # (Auto) 0.0 (0.0-0.7) K/uL Baso # (Auto) 0.0 (0.0-0.1) K/uL Nucleated RBC % 0.0 /100WBC Nucleated RBCs # 0 K/uL INR Sodium (136-145) mmol/L Potassium (3.5-5.1) mmol/L Chloride (98-107) mmol/L Carbon Dioxide (21.0-32.0) mmol/L BUN (7.0-18.0) mg/dL Creatinine (0.6-1.0) mg/dL Est Cr Clr Drug Dosing mL/min Estimated GFR (MDRD) ml/min Glucose (74-106) mg/dL Calcium (8.5-10.1) mg/dL Phosphorus (2.6-4.7) mg/dL Magnesium 1.8 (1.8-2.4) mg/dL Total Bilirubin (0.2-1.0) mg/dL AST (15-37) IU/L ALT (14-63) IU/L Alkaline Phosphatase (46-116) U/L Troponin I (0.000-0.056) ng/mL B-Natriuretic Peptide 674 H (<100) PG/ML Total Protein (6.4-8.2) g/dL Albumin (3.4-5.0) g/dL Globulin (2.0-3.5) g/dL Albumin/Globulin Ratio (1.3-2.8) Triglycerides (0-200) mg/dL Cholesterol (50-200) mg/dL LDL Cholesterol, Calc (60-180) mg/dL VLDL Cholesterol (5-55) mg/dL HDL Cholesterol (40-60) mg/dL Cholesterol/HDL Ratio (3.3-6.0) Lipase (73-393) U/L 07/10/18 07/10/18 Range/Units 05:30 05:30 WBC (4.0-11.0) K/uL RBC (4.30-5.90) M/uL Hgb (12.0-16.0) g/dL Hct (36.0-46.0) % MCV (80.0-98.0) fL MCH (27.0-32.0) pg MCHC (31.0-37.0) g/dL RDW Std Deviation (28.0-62.0) fl RDW Coeff of Gillian (11.0-15.0) % Plt Count (150-400) K/uL MPV (7.40-12.00) fL Neut % (Auto) (48.0-80.0) % Lymph % (Auto) (16.0-40.0) % Glenn % (Auto) (0.0-15.0) % Eos % (Auto) (0.0-7.0) % Baso % (Auto) (0.0-1.5) % Neut # (Auto) (1.4-5.7) K/uL Lymph # (Auto) (0.6-2.4) K/uL Glenn # (Auto) (0.0-0.8) K/uL Eos # (Auto) (0.0-0.7) K/uL Baso # (Auto) (0.0-0.1) K/uL Nucleated RBC % /100WBC Nucleated RBCs # K/uL INR Sodium 144 (136-145) mmol/L Potassium 4.1 (3.5-5.1) mmol/L Chloride 107 (98-107) mmol/L Carbon Dioxide 32.5 H (21.0-32.0) mmol/L BUN 9 (7.0-18.0) mg/dL Creatinine 0.8 (0.6-1.0) mg/dL Est Cr Clr Drug Dosing 38.44 mL/min Estimated GFR (MDRD) > 60.0 ml/min Glucose 131 H (74-106) mg/dL Calcium 8.3 L (8.5-10.1) mg/dL Phosphorus 1.8 L (2.6-4.7) mg/dL Magnesium 2.4 (1.8-2.4) mg/dL Total Bilirubin (0.2-1.0) mg/dL AST (15-37) IU/L ALT (14-63) IU/L Alkaline Phosphatase (46-116) U/L Troponin I (0.000-0.056) ng/mL B-Natriuretic Peptide (<100) PG/ML Total Protein (6.4-8.2) g/dL Albumin (3.4-5.0) g/dL Globulin (2.0-3.5) g/dL Albumin/Globulin Ratio (1.3-2.8) Triglycerides 78 (0-200) mg/dL Cholesterol 163 (50-200) mg/dL LDL Cholesterol, Calc 120 (60-180) mg/dL VLDL Cholesterol 15 (5-55) mg/dL HDL Cholesterol 27 L (40-60) mg/dL Cholesterol/HDL Ratio 6.0 (3.3-6.0) Lipase (73-393) U/L Result Diagrams: 07/10/18 05:30 07/10/18 05:30 Tariq Results Last 24 hrs: Microbiology 07/09/18 20:40 Anaerobic Blood Culture - Final Blood - Venous - Lab Draw 07/09/18 20:35 Anaerobic Blood Culture - Final Blood - Venous EKG INTERPRETATION EKG Date: 07/09/18 Rhythm: A-Fib ST-T: Depressed - Problem List (1) Atrial fibrillation with RVR SNOMED Code(s): 885174094437236 ICD Code: I48.91 - UNSPECIFIED ATRIAL FIBRILLATION Status: Acute Current Visit: Yes (2) Congestive heart failure (CHF) SNOMED Code(s): 16859620 ICD Code: I50.9 - HEART FAILURE, UNSPECIFIED Status: Acute Priority: High Current Visit: Yes (3) Healthcare associated bacterial pneumonia SNOMED Code(s): 176592049 ICD Code: J15.9 - UNSPECIFIED BACTERIAL PNEUMONIA Status: Acute Current Visit: Yes (4) Hypokalemia SNOMED Code(s): 87869364 ICD Code: E87.6 - HYPOKALEMIA Status: Acute Current Visit: Yes (5) COPD with exacerbation SNOMED Code(s): 292557885 ICD Code: J44.1 - CHRONIC OBSTRUCTIVE PULMONARY DISEASE W (ACUTE) EXACERBATION Status: Acute Current Visit: Yes Problem List Initiated/Reviewed/Updated: Yes Orders Last 24hrs: Active Orders 24 hr Category Date Time Status Admission Status [Patient Status] [ADT] Stat ADT 07/09/18 20:22 Active Daily Weight [Height and Weight] [RC] DAILY Care 07/09/18 23:22 Active Intake and Output Strict [RC] ASDIRECTED Care 07/09/18 23:22 Active RT Aerosol Therapy [RC] ASDIRECTED Care 07/10/18 11:02 Active Telemetry Monitoring [Cardiac Monitoring] [RC] Q8H Care 07/09/18 22:08 Active 2 Gram Sodium Diet [DIET] Diet 07/10/18 Breakfast Active Chest 1V Frontal [CR] Stat Exams 07/09/18 18:11 Taken Echo Comp wo Cont [US] Routine Exams 07/10/18 08:00 Taken BASIC METABOLIC PANEL,BMP [CHEM] DAILY Lab 07/11/18 05:00 Ordered BASIC METABOLIC PANEL,BMP [CHEM] DAILY Lab 07/12/18 05:00 Ordered BASIC METABOLIC PANEL,BMP [CHEM] DAILY Lab 07/13/18 05:00 Ordered BASIC METABOLIC PANEL,BMP [CHEM] DAILY Lab 07/14/18 05:00 Ordered CBC WITH AUTO DIFF [HEME] DAILY Lab 07/11/18 05:00 Ordered CBC WITH AUTO DIFF [HEME] DAILY Lab 07/12/18 05:00 Ordered CBC WITH AUTO DIFF [HEME] DAILY Lab 07/13/18 05:00 Ordered CBC WITH AUTO DIFF [HEME] DAILY Lab 07/14/18 05:00 Ordered CBC WITH AUTO DIFF [HEME] DAILY Lab 07/15/18 05:00 Ordered CULTURE BLOOD [BC] Stat Lab 07/09/18 20:35 Results CULTURE BLOOD [BC] Stat Lab 07/09/18 20:40 Results UA W/MICROSCOPIC [URIN] Stat Lab 07/09/18 18:12 Ordered VANCOMYCIN TROUGH [CHEM] Timed Lab 07/12/18 19:00 Ordered Albuterol/Ipratropium [DuoNeb 3.0-0.5 MG/3 ML] Med 07/10/18 11:01 Active 3 ml NEB Q4HRRT PRN Budesonide [Pulmicort] Med 07/10/18 21:00 Active 0.5 mg NEB BIDRT Clopidogrel [Plavix] Med 07/10/18 09:00 Active 75 mg PO DAILY Digoxin [Lanoxin] Med 07/10/18 09:00 Active 250 mcg PO DAILY Enoxaparin [Lovenox] Med 07/10/18 02:00 Active 40 mg SUBCUT Q24H Furosemide [Lasix] Med 07/10/18 21:00 Active 40 mg PO BID Levothyroxine [Synthroid] Med 07/10/18 07:30 Active 100 mcg PO ACBREAKFAST Losartan [Cozaar] Med 07/10/18 09:00 Active 100 mg PO DAILY Metoprolol Succinate [Toprol XL] Med 07/10/18 21:00 Active 25 mg PO BEDTIME Nitroglycerin [Nitro-Bid 2%] Med 07/09/18 22:07 Active 1 gm TOP Q6H PRN Pantoprazole [ProTONIX] Med 07/10/18 07:30 Active 40 mg PO ACBREAKFAST Phosphorus #1 [Neutra-Phos] Med 07/10/18 18:00 Active 250 mg PO QID Pilocarpine Med 07/10/18 09:00 Active 1 drop EYEBOTH DAILY Potassium Chloride [Klor-Con 10] Med 07/10/18 09:00 Active 10 meq PO DAILY Sertraline [Zoloft] Med 07/10/18 09:00 Active 100 mg PO DAILY Sodium Chloride 0.9% [Saline Flush] Med 07/09/18 18:11 Active 10 ml FLUSH ASDIRECTED PRN Sodium Chloride 0.9% [Saline Flush] Med 07/09/18 18:11 Active 2.5 ml FLUSH ASDIRECTED PRN Umeclidinium Brm/Vilanterol Tr Med 07/10/18 09:00 Active 1 puff INH DAILY Vancomycin Pharmacy to Dose [Pharmacy to Dose - Med 07/09/18 23:15 Active Vancomycin] 1 dose .XX ASDIRECTED Vancomycin [Vancocin] 1 gm Med 07/10/18 20:00 Active Sodium Chloride 0.9% [Normal Saline] 250 ml IV Q24H amLODIPine [Norvasc] Med 07/10/18 09:00 Active 5 mg PO DAILY methylPREDNISolone Sod Succ [Solu-MEDROL] Med 07/10/18 18:00 Active 60 mg IVPUSH Q6H Blood Culture x2 Reflex Set [OM.PC] Stat Ot 07/09/18 20:22 Ordered Saline Lock Insert [OM.PC] Stat Oth 07/09/18 18:11 Ordered Code Status [Resuscitation Status] Routine Resus Stat 07/09/18 23:23 Ordered Medication Orders Albuterol/Ipratropium (Duoneb 3.0-0.5 Mg/3 Ml) 3 ml NEB Q4HRRT PRN PRN Reason: wheezing/SOB Last Admin: 07/10/18 11:25 Dose: 3 ml Amlodipine Besylate (Norvasc) 5 mg PO DAILY [facility] Last Admin: 07/10/18 08:08 Dose: 5 mg Budesonide (Pulmicort) 0.5 mg NEB BIDRT [facility] Last Admin: 07/10/18 11:26 Dose: 0.5 mg Clopidogrel Bisulfate (Plavix) 75 mg PO DAILY [facility] Last Admin: 07/10/18 08:11 Dose: 75 mg Digoxin (Lanoxin) 250 mcg PO DAILY [facility] Last Admin: 07/10/18 08:09 Dose: 250 mcg Enoxaparin Sodium (Lovenox) 40 mg SUBCUT Q24H [facility] Last Admin: 07/10/18 02:25 Dose: 40 mg Furosemide (Lasix) 40 mg PO BID [facility] Vancomycin HCl 1 gm/ Sodium (Chloride) 250 mls @ 166 mls/hr IV Q24H [facility] Levothyroxine Sodium (Synthroid) 100 mcg PO ACBREAKFAST [facility] Last Admin: 07/10/18 06:34 Dose: 100 mcg Losartan Potassium (Cozaar) 100 mg PO DAILY [facility] Last Admin: 07/10/18 08:10 Dose: 100 mg Methylprednisolone Sodium Succinate (Solu-Medrol) 60 mg IVPUSH Q6H [facility] Metoprolol Succinate (Toprol Xl) 25 mg PO BEDTIME [facility] Nitroglycerin (Nitro-Bid 2%) 1 gm TOP Q6H PRN PRN Reason: Chest Pain Last Admin: 07/09/18 22:59 Dose: 1 gm Non-Formulary Medication (Pilocarpine) 1 drop EYEBOTH DAILY [facility] Last Admin: 07/10/18 08:12 Dose: Non-Formulary Medication (Umeclidinium Brm/Vilanterol Tr) 1 puff INH DAILY [facility] Last Admin: 07/10/18 08:12 Dose: Pantoprazole Sodium (Protonix) 40 mg PO ACBREAKFAST [facility] Last Admin: 07/10/18 06:34 Dose: 40 mg Potassium Chloride (Klor-Con 10) 10 meq PO DAILY [facility] Last Admin: 07/10/18 08:11 Dose: 10 meq Sertraline HCl (Zoloft) 100 mg PO DAILY [facility] Last Admin: 07/10/18 08:10 Dose: 100 mg Sodium Chloride (Saline Flush) 10 ml FLUSH ASDIRECTED PRN PRN Reason: Keep Vein Open Sodium Chloride (Saline Flush) 2.5 ml FLUSH ASDIRECTED PRN PRN Reason: Keep Vein Open Sodium Phosphate (Neutra-Phos) 250 mg PO QID [facility] Stop: 07/11/18 06:01 Vancomycin HCl (Pharmacy To Dose - Vancomycin) 1 dose .XX ASDIRECTED [facility] Assessment and plan COPD exacerbation. Patient on Solu-Medrol 125 mg 1 day 1 dose, and will continue patient with solumedrol 60 mg IV every or 6 hours, DuoNeb nebulizer treatment, one nebulizers every 4 hours when necessary for shortness of breath, ABG, budesonide 0.5 nebulizer treatment every 12 hours CHF exacerbation. Patient on Lasix 40 mg IV every 12 hours and potassium normalizes We will monitor FIGUEROA and daily weight Pneumonia due to gram-negative bacteria- . Patient on vancomycin IV Levaquin IV and clindamycin 300 mg IV every 8 hours, until blood cultures. For severe hypokalem patient was given potassium chloride 40 chichi by mouth every 4 hours follow-up potassium level DVT prophylaxis heparin subcutaneous Global ischemia on EKG - give patient isosorbide Hypophosphatemia - will supplement potassium with K-Phos Neutral 250 mg by mouth 3 times a day for 3 doses A. fib with RVR-patient was given last night metoprolol l 5 mg IV and heart rate was controlled ABG done showed metabolic alkalosis- will discontinue Lasix
[2018-07-10] MEDS: Isosorbide Mononitrate 30 MG Tab.ER PO SCH (15:57)
[2018-07-10] MEDS: Clindamycin Phosphate in D5W 300 MG in Premix Bag 1 BAG IV SCH ×4 (15:58→23:46)
[2018-07-10] MEDS ORDERED: Levofloxacin/Dextrose 5%-Water 750 MG in Premix Bag 1 BAG IV SCH (16:45)
[2018-07-10] MEDS: methylPREDNISolone Sodium Succinate 125 MG/2 ML SDV IVPUSH SCH ×2 (17:22→23:41)
[2018-07-10] MEDS: Phosphorus #1 250 MG Tab PO SCH ×2 (17:23→23:41)
[2018-07-10] MEDS ORDERED: metroNIDAZOLE/Normal Saline 500 MG in Premix Bag 1 BAG IV SCH (18:00)
[2018-07-10] MEDS: Metoprolol Succinate 25 MG Tab.ER PO SCH (20:18)
--- NOTE | 2018-07-10 20:41 | CR ---
EXAM DATE: 07/09/18 PATIENT'S AGE: 87 Patient: ADELINA CORCORAN Facility: [place], [place] Site . Site : 1930 Study: XRay Chest [id number]/[id number] 7:15:42 PM Ordering Physician: Doctor Mendez Final Report: INDICATION: Shortness of breath. TECHNIQUE: Portable chest July 09, 2018. COMPARISON: Portable chest June 24, 2018. Findings : Since the previous study the patient has developed a patchy right lower lobe and possibly right middle lobe infiltrate. The left lung is clear. There is cardiomegaly. No definite pulmonary venous vascular congestion within the upper lobes. Minimal pleural fluid on the right. Left total shoulder arthroplasty. IMPRESSION: New patchy right lower lobe and possibly right middle lobe infiltrate likely infectious or inflammatory. Cardiomegaly. Radiographic follow-up is recommended after appropriate treatment. Dictated by Seth Fernandez MD @ Jul 09 2018 7:23PM (Electronic Signature) Report Signed by Proxy. JI
[2018-07-10] MEDS ORDERED: Furosemide 40 MG Tab PO SCH (21:00)
[2018-07-10] MEDS ORDERED: Furosemide 40 MG/4 ML VIAL IVPUSH SCH (21:00)
[2018-07-11] MEDS: Enoxaparin 40 MG/0.4 ML Syringe SUBCUT SCH (01:59)
[2018-07-11] MEDS: Phosphorus #1 250 MG Tab PO SCH (05:47)
[2018-07-11] MEDS: methylPREDNISolone Sodium Succinate 125 MG/2 ML SDV IVPUSH SCH ×4 (05:48→18:45)
[2018-07-11] MEDS: Pantoprazole 40 MG Tab.CR PO SCH (06:49)
[2018-07-11] MEDS: Levothyroxine 100 MCG Tab PO SCH (06:50)
[2018-07-11 06:58] LABS: CHLORIDE,CL 104 mmol/L (98-107); SODIUM,NA 140 mmol/L (136-145)
[2018-07-11] MEDS: Budesonide 0.5 MG/2 ML Neb Susp NEB SCH ×3 (07:57→20:05)
[2018-07-11] MEDS: Albuterol/Ipratropium 3.0-0.5 MG/3 ML Neb Soln NEB PRN ×2 (09:03→20:05)
[2018-07-11] MEDS: PILOCARPINE EYEBOTH SCH (09:11)
[2018-07-11] MEDS: VILANTEROL TR INH SCH (09:11)
[2018-07-11] MEDS: UMECLIDINIUM BRM INH SCH (09:11)
[2018-07-11] MEDS: Potassium Chloride 10 MEQ Tab.ER PO SCH (09:12)
[2018-07-11] MEDS: Isosorbide Mononitrate 30 MG Tab.ER PO SCH (09:12)
[2018-07-11] MEDS: Digoxin 250 MCG Tab PO SCH (09:12)
[2018-07-11] MEDS: Clopidogrel 75 MG Tab PO SCH (09:12)
[2018-07-11] MEDS: Sertraline 100 MG Tab PO SCH (09:12)
[2018-07-11] MEDS: amLODIPine 5 MG Tab PO SCH (09:13)
[2018-07-11] MEDS: Losartan 50 MG Tab PO SCH (09:13)
[2018-07-11] MEDS: Clindamycin Phosphate in D5W 300 MG in Premix Bag 1 BAG IV SCH ×4 (09:14→15:52)
[2018-07-11] MEDS ORDERED: LORazepam 0.5 MG Tab PO PRN (09:49)
[2018-07-11] MEDS ORDERED: Bismuth Subsalicylate 262 MG/15 ML Susp 236 ML Bottle PO PRN (12:11)
--- NOTE | 2018-07-11 16:38 | PCM.PN ---
- General Info Date of Service: 07/11/18 Admission Dx/Problem (Free Text): Admission Diagnosis/Problem Admission Diagnosis/Problem Pneumonia Subjective Update: feeling significantly better , HR controlled , still diffuse ischemia with ST depression on the EKG , it was present in June 25 , too ., Had diarrhea in am twice Has long QT on the EKG , qtc is 540. Denies chest pain - Review of Systems General: Reports: No Symptoms HEENT: Reports: No Symptoms Pulmonary: Reports: Shortness of Breath, Cough, Wheezing Cardiovascular: Reports: No Symptoms Gastrointestinal: Reports: Diarrhea Genitourinary: Reports: No Symptoms Musculoskeletal: Reports: No Symptoms Skin: Reports: No Symptoms Neurological: Reports: No Symptoms - Patient Data Vitals - Most Recent: Last Vital Signs Temp 98.1 F 07/11/18 12:36 Pulse 68 07/11/18 12:36 Resp 14 07/11/18 12:36 BP 97/35 L 07/11/18 12:36 Pulse Ox 95 07/11/18 12:36 Weight - Most Recent: 167 lb 8.821 oz I&O - Last 24 Hours: Intake & Output 07/11/18 07/11/18 07/11/18 06:59 14:59 22:59 Intake Total 500 Output Total 100 Balance 400 Lab Results Last 24 Hours: Laboratory Results - last 24 hr 07/10/18 07/10/18 07/10/18 Range/Units 16:43 17:28 23:09 WBC (4.0-11.0) K/uL RBC (4.30-5.90) M/uL Hgb (12.0-16.0) g/dL Hct (36.0-46.0) % MCV (80.0-98.0) fL MCH (27.0-32.0) pg MCHC (31.0-37.0) g/dL RDW Std Deviation (28.0-62.0) fl RDW Coeff of Gillian (11.0-15.0) % Plt Count (150-400) K/uL MPV (7.40-12.00) fL Neut % (Auto) (48.0-80.0) % Lymph % (Auto) (16.0-40.0) % [place] % (Auto) (0.0-15.0) % Eos % (Auto) (0.0-7.0) % Baso % (Auto) (0.0-1.5) % Neut # (Auto) (1.4-5.7) K/uL Lymph # (Auto) (0.6-2.4) K/uL [place] # (Auto) (0.0-0.8) K/uL Eos # (Auto) (0.0-0.7) K/uL Baso # (Auto) (0.0-0.1) K/uL Nucleated RBC % /100WBC Nucleated RBCs # K/uL ABG pH 7.511 H (7.35-7.45) ABG pCO2 35 (35-45) mmHG ABG pO2 90 (75-100) mmHG ABG HCO3 28 H (22-26) mEq/L ABG Total CO2 24.7 ABG Base Excess 4.9 H (-2.0-2.0) Sodium (136-145) mmol/L Potassium (3.5-5.1) mmol/L Chloride (98-107) mmol/L Carbon Dioxide (21.0-32.0) mmol/L BUN (7.0-18.0) mg/dL Creatinine (0.6-1.0) mg/dL Est Cr Clr Drug Dosing mL/min Estimated GFR (MDRD) ml/min Glucose (74-106) mg/dL Calcium (8.5-10.1) mg/dL Phosphorus (2.6-4.7) mg/dL Magnesium (1.8-2.4) mg/dL Troponin I < 0.050 < 0.050 (0.000-0.056) ng/mL 07/11/18 07/11/18 07/11/18 Range/Units 06:24 06:24 06:24 WBC 8.89 (4.0-11.0) K/uL RBC 3.85 L (4.30-5.90) M/uL Hgb 11.1 L (12.0-16.0) g/dL Hct 33.6 L (36.0-46.0) % MCV 87.3 (80.0-98.0) fL MCH 28.8 (27.0-32.0) pg MCHC 33.0 (31.0-37.0) g/dL RDW Std Deviation 48.8 (28.0-62.0) fl RDW Coeff of Gillian 15 (11.0-15.0) % Plt Count 171 (150-400) K/uL MPV 9.90 (7.40-12.00) fL Neut % (Auto) 94.1 H (48.0-80.0) % Lymph % (Auto) 2.1 L (16.0-40.0) % [place] % (Auto) 3.8 (0.0-15.0) % Eos % (Auto) 0.0 (0.0-7.0) % Baso % (Auto) 0.0 (0.0-1.5) % Neut # (Auto) 8.4 H (1.4-5.7) K/uL Lymph # (Auto) 0.2 L (0.6-2.4) K/uL [place] # (Auto) 0.3 (0.0-0.8) K/uL Eos # (Auto) 0.0 (0.0-0.7) K/uL Baso # (Auto) 0.0 (0.0-0.1) K/uL Nucleated RBC % 0.0 /100WBC Nucleated RBCs # 0 K/uL ABG pH (7.35-7.45) ABG pCO2 (35-45) mmHG ABG pO2 (75-100) mmHG ABG HCO3 (22-26) mEq/L ABG Total CO2 ABG Base Excess (-2.0-2.0) Sodium 140 (136-145) mmol/L Potassium 3.9 (3.5-5.1) mmol/L Chloride 104 (98-107) mmol/L Carbon Dioxide 30.1 (21.0-32.0) mmol/L BUN 12 (7.0-18.0) mg/dL Creatinine 0.9 (0.6-1.0) mg/dL Est Cr Clr Drug Dosing 34.17 mL/min Estimated GFR (MDRD) 59.1 ml/min Glucose 145 H (74-106) mg/dL Calcium 8.4 L (8.5-10.1) mg/dL Phosphorus (2.6-4.7) mg/dL Magnesium 1.9 (1.8-2.4) mg/dL Troponin I < 0.050 (0.000-0.056) ng/mL 07/11/18 Range/Units 06:24 WBC (4.0-11.0) K/uL RBC (4.30-5.90) M/uL Hgb (12.0-16.0) g/dL Hct (36.0-46.0) % MCV (80.0-98.0) fL MCH (27.0-32.0) pg MCHC (31.0-37.0) g/dL RDW Std Deviation (28.0-62.0) fl RDW Coeff of Gillian (11.0-15.0) % Plt Count (150-400) K/uL MPV (7.40-12.00) fL Neut % (Auto) (48.0-80.0) % Lymph % (Auto) (16.0-40.0) % [place] % (Auto) (0.0-15.0) % Eos % (Auto) (0.0-7.0) % Baso % (Auto) (0.0-1.5) % Neut # (Auto) (1.4-5.7) K/uL Lymph # (Auto) (0.6-2.4) K/uL [place] # (Auto) (0.0-0.8) K/uL Eos # (Auto) (0.0-0.7) K/uL Baso # (Auto) (0.0-0.1) K/uL Nucleated RBC % /100WBC Nucleated RBCs # K/uL ABG pH (7.35-7.45) ABG pCO2 (35-45) mmHG ABG pO2 (75-100) mmHG ABG HCO3 (22-26) mEq/L ABG Total CO2 ABG Base Excess (-2.0-2.0) Sodium (136-145) mmol/L Potassium (3.5-5.1) mmol/L Chloride (98-107) mmol/L Carbon Dioxide (21.0-32.0) mmol/L BUN (7.0-18.0) mg/dL Creatinine (0.6-1.0) mg/dL Est Cr Clr Drug Dosing mL/min Estimated GFR (MDRD) ml/min Glucose (74-106) mg/dL Calcium (8.5-10.1) mg/dL Phosphorus 3.2 (2.6-4.7) mg/dL Magnesium 2.0 (1.8-2.4) mg/dL Troponin I (0.000-0.056) ng/mL Tariq Results Last 24 Hours: Microbiology 07/11/18 15:15 Campylobacter Antigen Assay - Final Stool / Feces NEGATIVE CAMPYLOBACTER AG 07/11/18 15:15 Clostridium difficile Toxin A & B - Final Stool / Feces Negative for C.Diff Toxin/AG 07/11/18 15:15 Stool for WBCs - Final Stool / Feces POSITIVE FOR WBC'S 07/09/18 20:40 Aerobic Blood Culture - Preliminary Blood - Venous - Lab Draw NO GROWTH AFTER 1 DAY Anaerobic Blood Culture - Final 07/09/18 20:35 Aerobic Blood Culture - Preliminary Blood - Venous NO GROWTH AFTER 1 DAY Anaerobic Blood Culture - Final Med Orders - Current: Current Medications Albuterol/Ipratropium (Duoneb 3.0-0.5 Mg/3 Ml) 3 ml NEB Q4HRRT PRN PRN Reason: wheezing/SOB Last Admin: 07/11/18 09:03 Dose: 3 ml Amlodipine Besylate (Norvasc) 5 mg PO DAILY [facility] Last Admin: 07/11/18 09:13 Dose: 5 mg Bismuth Subsalicylate (Pepto Bismol) 30 ml PO Q6H PRN PRN Reason: Diarrhea Last Admin: 07/11/18 15:26 Dose: 30 ml Budesonide (Pulmicort) 0.5 mg NEB BID [facility] Last Admin: 07/11/18 09:03 Dose: 0.5 mg Clopidogrel Bisulfate (Plavix) 75 mg PO DAILY [facility] Last Admin: 07/11/18 09:12 Dose: 75 mg Enoxaparin Sodium (Lovenox) 40 mg SUBCUT Q24H [facility] Last Admin: 07/11/18 01:59 Dose: 40 mg Vancomycin HCl 1 gm/ Sodium (Chloride) 250 mls @ 166 mls/hr IV Q24H [facility] Last Infusion: 07/10/18 21:50 Dose: Infused Clindamycin Phosphate 300 mg/ (Premix) 50 mls @ 150 mls/hr IV Q8H [facility] Last Admin: 07/11/18 15:52 Dose: 150 mls/hr Aztreonam 1 gm/ Sodium (Chloride) 50 mls @ 100 mls/hr IV Q8HR [facility] Isosorbide Mononitrate (Imdur) 30 mg PO DAILY [facility] Last Admin: 07/11/18 09:12 Dose: 30 mg Levothyroxine Sodium (Synthroid) 100 mcg PO ACBREAKFAST [facility] Last Admin: 07/11/18 06:50 Dose: 100 mcg Losartan Potassium (Cozaar) 100 mg PO DAILY [facility] Last Admin: 07/11/18 09:13 Dose: 100 mg Methylprednisolone Sodium Succinate (Solu-Medrol) 60 mg IVPUSH Q6H [facility] Last Admin: 07/11/18 13:17 Dose: 60 mg Metoprolol Succinate (Toprol Xl) 25 mg PO BEDTIME [facility] Last Admin: 07/10/18 20:18 Dose: 25 mg Nitroglycerin (Nitro-Bid 2%) 1 gm TOP Q6H PRN PRN Reason: Chest Pain Last Admin: 07/09/18 22:59 Dose: 1 gm Non-Formulary Medication (Pilocarpine) 1 drop EYEBOTH DAILY [facility] Last Admin: 07/11/18 09:11 Dose: Not Given Non-Formulary Medication (Umeclidinium Brm/Vilanterol Tr) 1 puff INH DAILY [facility] Last Admin: 07/11/18 09:11 Dose: Not Given Pantoprazole Sodium (Protonix) 40 mg PO ACBREAKFAST [facility] Last Admin: 07/11/18 06:49 Dose: 40 mg Potassium Chloride (Klor-Con 10) 10 meq PO DAILY [facility] Last Admin: 07/11/18 09:12 Dose: 10 meq Sertraline HCl (Zoloft) 100 mg PO DAILY [facility] Last Admin: 07/11/18 09:12 Dose: 100 mg Sodium Chloride (Saline Flush) 10 ml FLUSH ASDIRECTED PRN PRN Reason: Keep Vein Open Sodium Chloride (Saline Flush) 2.5 ml FLUSH ASDIRECTED PRN PRN Reason: Keep Vein Open Vancomycin HCl (Pharmacy To Dose - Vancomycin) 1 dose .XX ASDIRECTED [facility] Discontinued Medications Budesonide (Pulmicort) 0.5 mg NEB BIDRT [facility] Last Admin: 07/11/18 07:57 Dose: Not Given Budesonide (Pulmicort) Confirm Administered Dose 0.5 mg .ROUTE .STK-MED ONE Stop: 07/10/18 11:23 Last Admin: 07/10/18 11:33 Dose: Not Given Digoxin (Lanoxin) 250 mcg PO DAILY [facility] Last Admin: 07/11/18 09:12 Dose: 250 mcg Enoxaparin Sodium (Lovenox) Confirm Administered Dose 40 mg .ROUTE .STK-MED ONE Stop: 07/10/18 02:13 Last Admin: 07/11/18 12:02 Dose: Not Given Furosemide (Lasix) 40 mg PO DAILY [facility] Last Admin: 07/10/18 08:10 Dose: 40 mg Furosemide (Lasix) 40 mg PO BID [facility] Furosemide (Lasix) 40 mg IVPUSH BID [facility] Sodium Chloride (Normal Saline) 500 mls @ 999 mls/hr IV BOLUS ONE Stop: 07/09/18 18:41 Last Admin: 07/09/18 19:29 Dose: 999 mls/hr Levofloxacin/Dextrose 750 mg/ (Premix) 150 mls @ 100 mls/hr IV ONETIME ONE Stop: 07/09/18 21:46 Last Admin: 07/09/18 22:16 Dose: 100 mls/hr Vancomycin HCl 1,000 mg/ (Dextrose/Water) 250 mls @ 167 mls/hr IV ONETIME ONE Stop: 07/09/18 21:46 Last Admin: 07/10/18 00:59 Dose: 167 mls/hr Levofloxacin/Dextrose 750 mg/ (Premix) 150 mls @ 100 mls/hr IV Q48H [facility] Magnesium Sulfate 2 gm/ Premix 50 mls @ 50 mls/hr IV ONETIME ONE Stop: 07/10/18 00:17 Last Admin: 07/09/18 23:45 Dose: 50 mls/hr Metronidazole 500 mg/ Premix 100 mls @ 100 mls/hr IV QID [facility] Levofloxacin/Dextrose 750 mg/ (Premix) 150 mls @ 100 mls/hr IV Q24H [facility] Last Admin: 07/10/18 17:23 Dose: 100 mls/hr Magnesium Sulfate (Magnesium Sulfate 2 Gm In Water 50 Ml) Confirm Administered Dose 50 mls @ as directed .ROUTE .STK-MED ONE Stop: 07/09/18 23:44 Sodium Chloride (Normal Saline) Confirm Administered Dose 250 mls @ as directed .ROUTE .STK-MED ONE Stop: 07/10/18 00:19 Last Admin: 07/11/18 12:01 Dose: Not Given Aztreonam 1 gm/ Sodium (Chloride) 50 mls @ 100 mls/hr IV Q8HR [facility] Lorazepam (Ativan) 0.5 mg PO QID PRN PRN Reason: Anxiety Methylprednisolone Sodium Succinate (Solu-Medrol) 125 mg IVPUSH ONETIME ONE Stop: 07/10/18 11:02 Last Admin: 07/10/18 11:34 Dose: 125 mg Metoprolol Tartrate (Lopressor) 5 mg IVPUSH ONETIME ONE Stop: 07/10/18 00:36 Last Admin: 07/10/18 00:46 Dose: 5 mg Metoprolol Tartrate (Lopressor) Confirm Administered Dose 5 mg .ROUTE .STK-MED ONE Stop: 07/10/18 00:20 Last Admin: 07/11/18 12:02 Dose: Not Given Nitroglycerin (Nitro-Bid 2%) Confirm Administered Dose 1 gm .ROUTE .STK-MED ONE Stop: 07/09/18 22:53 Last Admin: 07/10/18 02:07 Dose: Not Given Pantoprazole Sodium (Protonix Iv) 40 mg IVPUSH NOW ONE Stop: 07/09/18 23:19 Last Admin: 07/10/18 00:27 Dose: 40 mg Pantoprazole Sodium (Protonix Iv) Confirm Administered Dose 40 mg .ROUTE .STK -MED ONE Stop: 07/10/18 00:19 Last Admin: 07/11/18 12:02 Dose: Not Given Potassium Chloride (Klor-Con M20) 40 meq PO ONETIME ONE Stop: 07/09/18 19:47 Last Admin: 07/09/18 20:19 Dose: 40 meq Potassium Chloride (Klor-Con M20) 40 meq PO ONETIME ONE Stop: 07/10/18 00:01 Last Admin: 07/10/18 00:26 Dose: 40 meq Potassium Chloride (Klor-Con M20) 40 meq PO ONETIME ONE Stop: 07/10/18 04:01 Last Admin: 07/10/18 04:00 Dose: 40 meq Potassium Chloride (Klor-Con M20) Confirm Administered Dose 40 meq .ROUTE .STK- MED ONE Stop: 07/10/18 00:19 Last Admin: 07/11/18 12:01 Dose: Not Given Sodium Phosphate (Neutra-Phos) 250 mg PO QID [facility] Stop: 07/11/18 06:01 Last Admin: 07/11/18 05:47 Dose: 250 mg Vancomycin HCl (Pharmacy To Dose - Vancomycin) 0 dose .XX ASDIRECTED [facility] Vancomycin HCl (Vancocin) Confirm Administered Dose 1 gm .ROUTE .STK-MED ONE Stop: 07/10/18 00:20 Last Admin: 07/11/18 12:02 Dose: Not Given - Exam General: Alert, Oriented HEENT: Pupils Equal Neck: Supple Lungs: Decreased Breath Sounds, Wheezing Cardiovascular: No Murmurs, Irregular Rhythm GI/Abdominal Exam: Normal Bowel Sounds, Soft, Non-Tender Back Exam: Normal Inspection Extremities: Normal Inspection Skin: Warm, Dry Neurological: No New Focal Deficit Psy/Mental Status: Alert - Problem List & Annotations (1) Atrial fibrillation with RVR SNOMED Code(s): 866901353621466 Code(s): I48.91 - UNSPECIFIED ATRIAL FIBRILLATION Status: Acute Current Visit: Yes (2) Congestive heart failure (CHF) SNOMED Code(s): 85485668 Code(s): I50.9 - HEART FAILURE, UNSPECIFIED Status: Acute Priority: High Current Visit: Yes (3) Healthcare associated bacterial pneumonia SNOMED Code(s): 556350637 Code(s): J15.9 - UNSPECIFIED BACTERIAL PNEUMONIA Status: Acute Current Visit: Yes (4) Hypokalemia SNOMED Code(s): 52683578 Code(s): E87.6 - HYPOKALEMIA Status: Acute Current Visit: Yes (5) COPD with exacerbation SNOMED Code(s): 897732403 Code(s): J44.1 - CHRONIC OBSTRUCTIVE PULMONARY DISEASE W (ACUTE) EXACERBATION Status: Acute Current Visit: Yes (6) Hypokalemia SNOMED Code(s): 80340743 Code(s): E87.6 - HYPOKALEMIA Status: Acute Current Visit: Yes (7) Long QT interval SNOMED Code(s): 935144701 Code(s): R94.31 - ABNORMAL ELECTROCARDIOGRAM [ECG] [EKG] Status: Acute Current Visit: Yes (8) Diarrhea SNOMED Code(s): 54088471 Code(s): R19.7 - DIARRHEA, UNSPECIFIED Status: Acute Current Visit: Yes - Problem List Review Problem List Initiated/Reviewed/Updated: Yes - My Orders Last 24 Hours: My Active Orders 07/10/18 15:45 Clindamycin Phosphate in D5W [Cleocin in D5W] 300 mg Premix Bag 1 bag IV Q8H Isosorbide Mononitrate [Imdur] 30 mg PO DAILY 07/10/18 18:00 methylPREDNISolone Sod Succ [Solu-MEDROL] 60 mg IVPUSH Q6H 07/10/18 20:00 Vancomycin [Vancocin] 1 gm Sodium Chloride 0.9% [Normal Saline] 250 ml IV Q24H 07/10/18 21:00 Metoprolol Succinate [Toprol XL] 25 mg PO BEDTIME 07/11/18 09:00 Budesonide [Pulmicort] 0.5 mg NEB BID 07/11/18 12:11 Bismuth Subsalicylate [Pepto Bismol] 30 ml PO Q6H PRN 07/11/18 15:15 CULTURE STOOL + CAMPY+SHIGATOX [RM] Routine 07/12/18 05:00 BASIC METABOLIC PANEL,BMP [CHEM] DAILY CBC WITH AUTO DIFF [HEME] DAILY 07/12/18 14:00 Aztreonam [Azactam] 1 gm Sodium Chloride 0.9% [Normal Saline] 50 ml IV Q8HR 07/13/18 05:00 BASIC METABOLIC PANEL,BMP [CHEM] DAILY CBC WITH AUTO DIFF [HEME] DAILY 07/14/18 05:00 BASIC METABOLIC PANEL,BMP [CHEM] DAILY CBC WITH AUTO DIFF [HEME] DAILY 07/15/18 05:00 CBC WITH AUTO DIFF [HEME] DAILY - Plan Plan:: Pneumonia Long QT on security monitor and EKF frequent PVC COPD exacerbation general ischemia of the heart with diffuse ST depression unchanged diarrhea A fib CHF plan: will d/c medications that prolong QT: levofloxacin and furosemide and digoxin , will continue patient for pneumonia with Clindamycin 300 mg iv q 8 h and vancomycin iv , BC negative day 2, add aztreonam 1 gram iv q 8 h for GNeg. double coverage For COPD exac - improving - will taper down steroids to Solumedrol 40 mg iv q 8 h , continue pulmicort neb bid and duoneb For A fib - cont. metoprolol 25 mg at bedtime , eliquis 5 mg po BID , reevaluate tomorrow if to restart digoxin , if Long qt resolves For diarrhea- will do eliz culture and eliz for c diff , stool for wbc , if c diff and camphylobacter negative will give patient immodium for diarrhea. Right now she says her diarrhea stopped . Peptobismol 30 cc po q 6 h prn for diarrhea Gi prof- protonix 40 mg po daily
[2018-07-11] MEDS: Apixaban 5 MG Tab PO SCH (20:33)
[2018-07-11] MEDS: Metoprolol Succinate 25 MG Tab.ER PO SCH (20:33)
[2018-07-11] MEDS ORDERED: Levofloxacin/Dextrose 5%-Water 750 MG in Premix Bag 1 BAG IV SCH (21:00)
[2018-07-12] MEDS: Clindamycin Phosphate in D5W 300 MG in Premix Bag 1 BAG IV SCH ×4 (00:04→09:17)
[2018-07-12] MEDS: methylPREDNISolone Sodium Succinate 125 MG/2 ML SDV IVPUSH SCH ×2 (02:05→09:19)
[2018-07-12] MEDS: Pantoprazole 40 MG Tab.CR PO SCH (06:37)
[2018-07-12] MEDS: Levothyroxine 100 MCG Tab PO SCH (06:37)
[2018-07-12 06:38] LABS: CHLORIDE,CL 107 mmol/L (98-107); SODIUM,NA 143 mmol/L (136-145)
[2018-07-12] MEDS ORDERED: Famotidine 20 MG/2 ML SDV IVPUSH SCH (09:00)
[2018-07-12] MEDS ORDERED: Potassium Chloride 20 MEQ Tab.ER PO ONE (09:05)
[2018-07-12] MEDS: Losartan 50 MG Tab PO SCH (09:17)
[2018-07-12] MEDS: amLODIPine 5 MG Tab PO SCH (09:17)
[2018-07-12] MEDS: Apixaban 5 MG Tab PO SCH (09:17)
[2018-07-12] MEDS: Sertraline 100 MG Tab PO SCH (09:17)
[2018-07-12] MEDS: Potassium Chloride 10 MEQ Tab.ER PO SCH (09:17)
[2018-07-12] MEDS: Clopidogrel 75 MG Tab PO SCH (09:18)
[2018-07-12] MEDS: Isosorbide Mononitrate 30 MG Tab.ER PO SCH (09:18)
[2018-07-12] MEDS: UMECLIDINIUM BRM INH SCH (09:26)
[2018-07-12] MEDS: VILANTEROL TR INH SCH (09:26)
[2018-07-12] MEDS: PILOCARPINE EYEBOTH SCH (09:26)
[2018-07-12] MEDS: Budesonide 0.5 MG/2 ML Neb Susp NEB SCH ×2 (09:35→09:40)
[2018-07-12] MEDS: Albuterol/Ipratropium 3.0-0.5 MG/3 ML Neb Soln NEB PRN (09:40)
[2018-07-12 12:27] VITALS: BP 144/49
[2018-07-12] MEDS ORDERED: Potassium Chloride 10% 20 MEQ/15 ML Soln 30 ML UD Cup PO ONE (12:28)
[2018-07-12] MEDS ORDERED: Loperamide 2 MG Cap PO ONE (12:29)
--- NOTE | 2018-07-12 12:34 | PCM.DCSUM1 ---
Discharge Summary - Hospital Course Diagnosis: Stroke: No - Discharge Data Discharge Disposition: Home, Self-Care 01 Condition: Good - Discharge Diagnosis/Problem(s) (1) Atrial fibrillation with RVR SNOMED Code(s): 736665157101851 ICD Code: I48.91 - UNSPECIFIED ATRIAL FIBRILLATION Status: Acute Current Visit: Yes (2) Congestive heart failure (CHF) SNOMED Code(s): 30411321 ICD Code: I50.9 - HEART FAILURE, UNSPECIFIED Status: Acute Priority: High Current Visit: Yes (3) Healthcare associated bacterial pneumonia SNOMED Code(s): 658099819 ICD Code: J15.9 - UNSPECIFIED BACTERIAL PNEUMONIA Status: Acute Current Visit: Yes (4) Hypokalemia SNOMED Code(s): 58667614 ICD Code: E87.6 - HYPOKALEMIA Status: Acute Current Visit: Yes (5) COPD with exacerbation SNOMED Code(s): 671859288 ICD Code: J44.1 - CHRONIC OBSTRUCTIVE PULMONARY DISEASE W (ACUTE) EXACERBATION Status: Acute Current Visit: Yes (6) Hypokalemia SNOMED Code(s): 11359180 ICD Code: E87.6 - HYPOKALEMIA Status: Acute Current Visit: Yes (7) Long QT interval SNOMED Code(s): 814309594 ICD Code: R94.31 - ABNORMAL ELECTROCARDIOGRAM [ECG] [EKG] Status: Acute Current Visit: Yes (8) Diarrhea SNOMED Code(s): 43693205 ICD Code: R19.7 - DIARRHEA, UNSPECIFIED Status: Acute Current Visit: Yes - Patient Instructions Diet: Usual Diet as Tolerated Activity: As Tolerated Driving: May Drive Today - Discharge Plan Prescriptions/Med Rec: Apixaban [Eliquis] 5 mg PO BID #60 tablet Clindamycin HCl [Cleocin HCl] 300 mg PO TID 7 Days #21 capsule Fluticasone/Salmeterol [Advair 250-50 Diskus] 1 each IH BID #1 disk.w.dev Isosorbide Mononitrate [Imdur] 30 mg PO DAILY #30 tab.er Potassium Bicarb/Potassium Chl [Potassium Chloride] 25 meq PO DAILY 30 Days #30 tab.eff predniSONE [Prednisone] 20 mg PO BID #3 tablet Home Medications: Home Meds Potassium Chloride 10 meq PO DAILY 09/24/14 [History] Sertraline [Zoloft] 100 mg PO DAILY 09/24/14 [History] Metoprolol Succinate [Toprol XL] 25 mg PO BEDTIME #30 tab.er 12/05/16 [Rx] Furosemide [Lasix] 40 mg PO DAILY 09/23/17 [History] Losartan [Cozaar] 100 mg PO DAILY 09/23/17 [History] amLODIPine [Norvasc] 5 mg PO DAILY 09/23/17 [History] Clopidogrel Bisulfate [Clopidogrel] 75 mg PO DAILY 06/24/18 [History] Digoxin 0.25 mg PO DAILY 06/24/18 [History] Levothyroxine [Synthroid] 100 mcg PO ACBREAKFAST 06/24/18 [History] Pantoprazole [ProTONIX] 40 mg PO ACBREAKFAST 06/24/18 [History] Pilocarpine [Pilocar 2% Ophth Soln] 1 drop EYEBOTH DAILY 06/24/18 [History] Umeclidinium Brm/Vilanterol Tr [Anoro Ellipta 62.5-25 Mcg INH] 1 puff INH DAILY 06/24/18 [History] Apixaban [Eliquis] 5 mg PO BID #60 tablet 07/12/18 [Rx] Clindamycin HCl [Cleocin HCl] 300 mg PO TID 7 Days #21 capsule 07/12/18 [Rx] Fluticasone/Salmeterol [Advair 250-50 Diskus] 1 each IH BID #1 disk.w.dev [Rx] Isosorbide Mononitrate [Imdur] 30 mg PO DAILY #30 tab.er 07/12/18 [Rx] Potassium Bicarb/Potassium Chl [Potassium Chloride] 25 meq PO DAILY 30 Days #30 tab.eff 07/12/18 [Rx] predniSONE [Prednisone] 20 mg PO BID #3 tablet 07/12/18 [Rx] Patient Handouts: Potassium Citrate Extended-Release Tablets, Isosorbide Mononitrate extended-release tablets, Heart Failure, [id number], Fluticasone inhalation aerosol, Prednisone tablets, Apixaban oral tablets, Community- Acquired Pneumonia, Adult, [id number] Referrals: Licha Andrade MD [Physician] - Vaughn Clayton MD [Physician] - - Patient Data Vitals - Most Recent: Last Vital Signs Temp 98.0 F 07/12/18 12:26 Pulse 66 07/12/18 12:26 Resp 18 07/12/18 12:26 BP 144/49 H 07/12/18 12:26 Pulse Ox 96 07/12/18 12:26 Weight - Most Recent: 169 lb 8 oz I&O - Last 24 hours: Intake & Output 07/11/18 07/12/18 07/12/18 22:59 06:59 14:59 Intake Total 250 300 Balance 250 300 Lab Results - Last 24 hrs: Laboratory Results - last 24 hr 07/12/18 07/12/18 Range/Units 05:53 05:53 WBC 8.71 (4.0-11.0) K/uL RBC 3.77 L (4.30-5.90) M/uL Hgb 10.9 L (12.0-16.0) g/dL Hct 33.0 L (36.0-46.0) % MCV 87.5 (80.0-98.0) fL MCH 28.9 (27.0-32.0) pg MCHC 33.0 (31.0-37.0) g/dL RDW Std Deviation 49.0 (28.0-62.0) fl RDW Coeff of Gillian 15 (11.0-15.0) % Plt Count 202 (150-400) K/uL MPV 10.30 (7.40-12.00) fL Neut % (Auto) 93.2 H (48.0-80.0) % Lymph % (Auto) 2.4 L (16.0-40.0) % [place] % (Auto) 4.4 (0.0-15.0) % Eos % (Auto) 0.0 (0.0-7.0) % Baso % (Auto) 0.0 (0.0-1.5) % Neut # (Auto) 8.1 H (1.4-5.7) K/uL Lymph # (Auto) 0.2 L (0.6-2.4) K/uL [place] # (Auto) 0.4 (0.0-0.8) K/uL Eos # (Auto) 0.0 (0.0-0.7) K/uL Baso # (Auto) 0.0 (0.0-0.1) K/uL Nucleated RBC % 0.0 /100WBC Nucleated RBCs # 0 K/uL Sodium 143 (136-145) mmol/L Potassium 3.2 L (3.5-5.1) mmol/L Chloride 107 (98-107) mmol/L Carbon Dioxide 27.3 (21.0-32.0) mmol/L BUN 15 (7.0-18.0) mg/dL Creatinine 0.8 (0.6-1.0) mg/dL Est Cr Clr Drug Dosing 38.44 mL/min Estimated GFR (MDRD) > 60.0 ml/min Glucose 150 H (74-106) mg/dL Calcium 8.3 L (8.5-10.1) mg/dL JON Results - Last 24 hrs: Microbiology 07/11/18 15:15 Campylobacter Antigen Assay - Final Stool / Feces NEGATIVE CAMPYLOBACTER AG - Final NEGATIVE FOR SHIGA TOXIN 1 - Final NEGATIVE FOR SHIGA TOXIN 2 07/09/18 20:40 Aerobic Blood Culture - Preliminary Blood - Venous - Lab Draw NO GROWTH AFTER 2 DAYS Anaerobic Blood Culture - Final 07/09/18 20:35 Aerobic Blood Culture - Preliminary Blood - Venous NO GROWTH AFTER 2 DAYS Anaerobic Blood Culture - Final 07/11/18 15:15 Clostridium difficile Toxin A & B - Final Stool / Feces Negative for C.Diff Toxin/AG 07/11/18 15:15 Stool for WBCs - Final Stool / Feces POSITIVE FOR WBC'S Med Orders - Current: Current Medications Albuterol/Ipratropium (Duoneb 3.0-0.5 Mg/3 Ml) 3 ml NEB Q4HRRT PRN PRN Reason: wheezing/SOB Last Admin: 07/12/18 09:40 Dose: 3 ml Amlodipine Besylate (Norvasc) 5 mg PO DAILY [facility] Last Admin: 07/12/18 09:17 Dose: 5 mg Apixaban (Eliquis) 5 mg PO BID [facility] Last Admin: 07/12/18 09:17 Dose: 5 mg Budesonide (Pulmicort) 0.5 mg NEB BID [facility] Last Admin: 07/12/18 09:40 Dose: 0.5 mg Clopidogrel Bisulfate (Plavix) 75 mg PO DAILY [facility] Last Admin: 07/12/18 09:18 Dose: 75 mg Vancomycin HCl 1 gm/ Sodium (Chloride) 250 mls @ 166 mls/hr IV Q24H [facility] Last Admin: 07/11/18 20:32 Dose: 166 mls/hr Clindamycin Phosphate 300 mg/ (Premix) 50 mls @ 150 mls/hr IV Q8H [facility] Last Admin: 07/12/18 09:17 Dose: 150 mls/hr Aztreonam 1 gm/ Sodium (Chloride) 50 mls @ 100 mls/hr IV Q8HR [facility] Isosorbide Mononitrate (Imdur) 30 mg PO DAILY [facility] Last Admin: 07/12/18 09:18 Dose: 30 mg Levothyroxine Sodium (Synthroid) 100 mcg PO ACBREAKFAST [facility] Last Admin: 07/12/18 06:37 Dose: 100 mcg Loperamide HCl (Imodium) 2 mg PO ONETIME ONE Stop: 07/12/18 12:30 Losartan Potassium (Cozaar) 100 mg PO DAILY [facility] Last Admin: 07/12/18 09:17 Dose: 100 mg Methylprednisolone Sodium Succinate (Solu-Medrol) 40 mg IVPUSH Q8H [facility] Last Admin: 07/12/18 09:19 Dose: 40 mg Metoprolol Succinate (Toprol Xl) 25 mg PO BEDTIME [facility] Last Admin: 07/11/18 20:33 Dose: 25 mg Nitroglycerin (Nitro-Bid 2%) 1 gm TOP Q6H PRN PRN Reason: Chest Pain Last Admin: 07/09/18 22:59 Dose: 1 gm Non-Formulary Medication (Pilocarpine) 1 drop EYEBOTH DAILY [facility] Last Admin: 07/12/18 09:26 Dose: Not Given Non-Formulary Medication (Umeclidinium Brm/Vilanterol Tr) 1 puff INH DAILY [facility] Last Admin: 07/12/18 09:26 Dose: Not Given Pantoprazole Sodium (Protonix) 40 mg PO ACBREAKFAST [facility] Last Admin: 07/12/18 06:37 Dose: 40 mg Potassium Chloride (Klor-Con 10) 10 meq PO DAILY [facility] Last Admin: 07/12/18 09:17 Dose: 10 meq Sertraline HCl (Zoloft) 100 mg PO DAILY [facility] Last Admin: 07/12/18 09:17 Dose: 100 mg Sodium Chloride (Saline Flush) 10 ml FLUSH ASDIRECTED PRN PRN Reason: Keep Vein Open Sodium Chloride (Saline Flush) 2.5 ml FLUSH ASDIRECTED PRN PRN Reason: Keep Vein Open Vancomycin HCl (Pharmacy To Dose - Vancomycin) 1 dose .XX ASDIRECTED CARLOS Discontinued Medications Bismuth Subsalicylate (Pepto Bismol) 30 ml PO Q6H PRN PRN Reason: Diarrhea Last Admin: 07/11/18 15:26 Dose: 30 ml Budesonide (Pulmicort) 0.5 mg NEB BIDRT [facility] Last Admin: 07/11/18 07:57 Dose: Not Given Budesonide (Pulmicort) Confirm Administered Dose 0.5 mg .ROUTE .STK-MED ONE Stop: 07/10/18 11:23 Last Admin: 07/10/18 11:33 Dose: Not Given Digoxin (Lanoxin) 250 mcg PO DAILY [facility] Last Admin: 07/11/18 09:12 Dose: 250 mcg Enoxaparin Sodium (Lovenox) 40 mg SUBCUT Q24H [facility] Last Admin: 07/11/18 01:59 Dose: 40 mg Enoxaparin Sodium (Lovenox) Confirm Administered Dose 40 mg .ROUTE .STK-MED ONE Stop: 07/10/18 02:13 Last Admin: 07/11/18 12:02 Dose: Not Given Famotidine (Pepcid) 20 mg IVPUSH DAILY [facility] Furosemide (Lasix) 40 mg PO DAILY [facility] Last Admin: 07/10/18 08:10 Dose: 40 mg Furosemide (Lasix) 40 mg PO BID [facility] Furosemide (Lasix) 40 mg IVPUSH BID [facility] Sodium Chloride (Normal Saline) 500 mls @ 999 mls/hr IV BOLUS ONE Stop: 07/09/18 18:41 Last Admin: 07/09/18 19:29 Dose: 999 mls/hr Levofloxacin/Dextrose 750 mg/ (Premix) 150 mls @ 100 mls/hr IV ONETIME ONE Stop: 07/09/18 21:46 Last Admin: 07/09/18 22:16 Dose: 100 mls/hr Vancomycin HCl 1,000 mg/ (Dextrose/Water) 250 mls @ 167 mls/hr IV ONETIME ONE Stop: 07/09/18 21:46 Last Admin: 07/10/18 00:59 Dose: 167 mls/hr Levofloxacin/Dextrose 750 mg/ (Premix) 150 mls @ 100 mls/hr IV Q48H [facility] Magnesium Sulfate 2 gm/ Premix 50 mls @ 50 mls/hr IV ONETIME ONE Stop: 07/10/18 00:17 Last Admin: 07/09/18 23:45 Dose: 50 mls/hr Metronidazole 500 mg/ Premix 100 mls @ 100 mls/hr IV QID [facility] Levofloxacin/Dextrose 750 mg/ (Premix) 150 mls @ 100 mls/hr IV Q24H [facility] Last Admin: 07/10/18 17:23 Dose: 100 mls/hr Magnesium Sulfate (Magnesium Sulfate 2 Gm In Water 50 Ml) Confirm Administered Dose 50 mls @ as directed .ROUTE .STK-MED ONE Stop: 07/09/18 23:44 Sodium Chloride (Normal Saline) Confirm Administered Dose 250 mls @ as directed .ROUTE .STK-MED ONE Stop: 07/10/18 00:19 Last Admin: 07/11/18 12:01 Dose: Not Given Aztreonam 1 gm/ Sodium (Chloride) 50 mls @ 100 mls/hr IV Q8HR [facility] Lorazepam (Ativan) 0.5 mg PO QID PRN PRN Reason: Anxiety Methylprednisolone Sodium Succinate (Solu-Medrol) 125 mg IVPUSH ONETIME ONE Stop: 07/10/18 11:02 Last Admin: 07/10/18 11:34 Dose: 125 mg Methylprednisolone Sodium Succinate (Solu-Medrol) 60 mg IVPUSH Q6H [facility] Last Admin: 07/11/18 17:17 Dose: 60 mg Metoprolol Tartrate (Lopressor) 5 mg IVPUSH ONETIME ONE Stop: 07/10/18 00:36 Last Admin: 07/10/18 00:46 Dose: 5 mg Metoprolol Tartrate (Lopressor) Confirm Administered Dose 5 mg .ROUTE .STK-MED ONE Stop: 07/10/18 00:20 Last Admin: 07/11/18 12:02 Dose: Not Given Nitroglycerin (Nitro-Bid 2%) Confirm Administered Dose 1 gm .ROUTE .STK-MED ONE Stop: 07/09/18 22:53 Last Admin: 07/10/18 02:07 Dose: Not Given Pantoprazole Sodium (Protonix Iv) 40 mg IVPUSH NOW ONE Stop: 07/09/18 23:19 Last Admin: 07/10/18 00:27 Dose: 40 mg Pantoprazole Sodium (Protonix Iv) Confirm Administered Dose 40 mg .ROUTE .STK -MED ONE Stop: 07/10/18 00:19 Last Admin: 07/11/18 12:02 Dose: Not Given Potassium Chloride (Klor-Con M20) 40 meq PO ONETIME ONE Stop: 07/09/18 19:47 Last Admin: 07/09/18 20:19 Dose: 40 meq Potassium Chloride (Klor-Con M20) 40 meq PO ONETIME ONE Stop: 07/10/18 00:01 Last Admin: 07/10/18 00:26 Dose: 40 meq Potassium Chloride (Klor-Con M20) 40 meq PO ONETIME ONE Stop: 07/10/18 04:01 Last Admin: 07/10/18 04:00 Dose: 40 meq Potassium Chloride (Klor-Con M20) Confirm Administered Dose 40 meq .ROUTE .STK- MED ONE Stop: 07/10/18 00:19 Last Admin: 07/11/18 12:01 Dose: Not Given Potassium Chloride (Klor-Con M20) 40 meq PO ONETIME ONE Stop: 07/12/18 09:06 Last Admin: 07/12/18 09:26 Dose: 40 meq Potassium Chloride (Potassium Chloride) 40 meq PO ONETIME ONE Stop: 07/12/18 12:29 Sodium Phosphate (Neutra-Phos) 250 mg PO QID [facility] Stop: 07/11/18 06:01 Last Admin: 07/11/18 05:47 Dose: 250 mg Vancomycin HCl (Pharmacy To Dose - Vancomycin) 0 dose .XX ASDIRECTED [facility] Vancomycin HCl (Vancocin) Confirm Administered Dose 1 gm .ROUTE .STK-MED ONE Stop: 07/10/18 00:20 Last Admin: 07/11/18 12:02 Dose: Not Given
--- NOTE | 2018-07-14 14:38 | ECHO ---
EXAM DATE: 07/09/18 PATIENT'S AGE: 87 The echocardiogram report can be seen in this patient's EMR (Electronic Medical Record) in the Reports section. The report has also been scanned into PACs. JI
== END 2018-07-12 13:00 | disposition home or self-care (01) | DRG 291 ==
LOC: MW.ED 18:06 → MW.MS 20:58
PROVIDERS: ADMIT Internal Medicine; ATTEND Internal Medicine
DX: I50.33 Acute on chronic diastolic (congestive) heart failure (principal); I11.0 Hypertensive heart disease with heart failure; J18.9 Pneumonia, unspecified organism; J15.9 Unspecified bacterial pneumonia; J44.9 Chronic obstructive pulmonary disease, unspecified; J44.1 Chronic obstructive pulmonary disease with (acute) exacerbation; I48.91 Unspecified atrial fibrillation; Z86.73 Personal history of transient ischemic attack (TIA), and cerebral infarction without residual deficits; Z79.01 Long term (current) use of anticoagulants; E87.6 Hypokalemia; R94.31 Abnormal electrocardiogram [ECG] [EKG]; R19.7 Diarrhea, unspecified; Z79.2 Long term (current) use of antibiotics; Z88.1 Allergy status to other antibiotic agents; Z88.0 Allergy status to penicillin; Z88.2 Allergy status to sulfonamides; Z79.1 Long term (current) use of non-steroidal anti-inflammatories (NSAID); Z79.899 Other long term (current) drug therapy; E78.00 Pure hypercholesterolemia, unspecified; Z99.81 Dependence on supplemental oxygen; Z99.89 Dependence on other enabling machines and devices; F41.8 Other specified anxiety disorders; E03.9 Hypothyroidism, unspecified; Z85.828 Personal history of other malignant neoplasm of skin
CPT/HCPCS: 36415; 71045; 80053; 83690; 83735; 83880; 84484; 85025; 85610; 87040 ×2; 93005; 96360; 99285; A9270; J7040; 36600; 80048; 80061; 81001; 82803; 83630; 84100; 87046; 87324; 87899; 93306; 94640; C9113; J1650; J1956; J2930; J3370; J3475; J3490; J7050; J7060; J7620-GY

== ENCOUNTER 2019-02-04 07:22 | Inpatient (IN) | payer MEDICARE, BC ==
--- NOTE | 2019-02-04 07:27 | EDM.PDOC ---
ED HPI GENERAL MEDICAL PROBLEM - General Stated Complaint: WEAK Time Seen by Provider: 02/04/19 07:26 Source of Information: Reports: Patient - History of Present Illness INITIAL COMMENTS - FREE TEXT/NARRATIVE: HISTORY AND PHYSICAL: History of present illness: [Patient presents via EMS with complaint of fall in the home and weakness She was up this morning at approximately 5 AM and to the bathroom, she had a fall in her home currently in the hallway where she struck her head, there is a small abrasion left temporal area and cheek, she is alert and had called out to her care provider which assisted her. She was able to crawl approximately 25 feet to her room. She complains of right wrist pain on arrival She is recently been placed on a Holter monitor due to history of dizziness and weakness, she is currently wearing a Holter on arrival No fever nausea vomiting chills sweats no chest pain shortness breath or palpitation no bowel or urine symptoms ] Review of systems: As per history of present illness and below otherwise all systems reviewed and negative. Past medical history: As per history of present illness and as reviewed below otherwise noncontributory. Surgical history: As per history of present illness and as reviewed below otherwise noncontributory. Social history: No reported history of drug or alcohol abuse. Family history: As per history of present illness and as reviewed below otherwise noncontributory. Physical exam: HEENT: Atraumatic, normocephalic, pupils reactive, negative for conjunctival pallor or scleral icterus, mucous membranes moist, throat clear, neck supple, nontender, trachea midline. Lungs: Clear to auscultation, breath sounds equal bilaterally, chest nontender. Heart: S1S2, regular, negative for clicks, rubs, or JVD. Abdomen: Soft, nondistended, nontender. Negative for masses or hepatosplenomegaly. Negative for costovertebral tenderness. Pelvis: Stable nontender. Genitourinary: Deferred. Rectal: Deferred. Extremities: Atraumatic, negative for cords or calf pain. Neurovascular unremarkable. Neuro: Awake, alert, oriented. Cranial nerves II through XII unremarkable. Cerebellum unremarkable. Motor and sensory unremarkable throughout. Exam nonfocal. 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 Right Wrist Pain Score (Numeric/FACES): 8 - Related Data Allergies Allergy/AdvReac Type Severity Reaction Status Date / Time clarithromycin [From Biaxin] Allergy Cannot Verified 02/04/19 07:53 Remember metronidazole Allergy Cannot Verified 02/04/19 07:53 Remember oxaprozin [From Daypro] Allergy Cannot Verified 02/04/19 07:53 Remember Penicillins Allergy Swelling Verified 02/04/19 07:53 sulfasalazine Allergy Cannot Verified 02/04/19 07:53 [From Azulfidine] Remember Home Meds: Home Meds Albuterol [Ventolin HFA] 1 - 2 puff INH ASDIRECTED PRN 02/04/19 [History] Calcium Carbonate [Calcium] 1 tab PO DAILY 02/04/19 [History] Furosemide 1 tab PO DAILY 02/04/19 [History] LORazepam 1 tab PO ASDIRECTED PRN 02/04/19 [History] Levothyroxine [Synthroid] 1 tab PO DAILY 02/04/19 [History] Losartan Potassium 1 tab PO DAILY 02/04/19 [History] Lutein/Minerals/Vit A,C & E [Ocuvite] 1 tab PO DAILY 02/04/19 [History] Magnesium Oxide 1 tab PO BID 02/04/19 [History] Metoprolol Succinate [Toprol XL] 1 tab PO DAILY 02/04/19 [History] Nitroglycerin [Nitrostat] 1 tab SL ASDIRECTED PRN 02/04/19 [History] Potassium Chloride 2 tab PO DAILY 02/04/19 [History] Sertraline [Zoloft] 1 tab PO DAILY 02/04/19 [History] amLODIPine Besylate [Norvasc] 1 tab PO DAILY 02/04/19 [History] atorvaSTATin [Lipitor] 1 tab PO DAILY 02/04/19 [History] Past Medical History HEENT History: Reports: Cataract, Impaired Vision, Macular Degeneration, Other ( See Below) Other HEENT History: Bilateral Hearing aids, when out [facility] on LEFT; vertigo Cardiovascular History: Reports: Angina, Arrhythmia, Heart Failure, High Cholesterol, Hypertension, MD Other Cardiovascular History: mini stroke 10 years ago Respiratory History: Reports: COPD Other Respiratory History: on CPAP Gastrointestinal History: Reports: Diverticulosis Genitourinary History: Reports: Urinary Incontinence 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: Musculoskeletal History: Reports: Fracture Other Musculoskeletal History: hx: Fractured wrists, fractured foot Neurological History: Reports: CVA, Vertigo Psychiatric History: Reports: Anxiety, Depression Endocrine/Metabolic History: Reports: Hypothyroidism Hematologic History: Reports: None Oncologic (Cancer) History: Reports: Squamous Cell Carcinoma Other Oncologic History: hx: Skin cancer removed, "eye cancer" Dermatologic History: Reports: Eczema - Infectious Disease History Infectious Disease History: Reports: Chicken Pox, Measles, Mumps, Shingles - Past Surgical History HEENT Surgical History: Reports: Cataract Surgery, Other (See Below) Female Surgical History: Reports: Other (See Below) Endocrine Surgical History: Reports: Other (See Below) Musculoskeletal Surgical History: Reports: Shoulder Replacement Social & Family History - Family History Family Medical History: Noncontributory Cardiac: Reports: MD Psychiatric: Reports: Anxiety, Depression Oncologic: Reports: Bone, Colon, Leukemia, Skin - Caffeine Use Caffeine Use: Reports: None Caffeine Use Comment: rarely drinks tea ED ROS GENERAL - Review of Systems Review Of Systems: See Below ED EXAM, GENERAL - Physical Exam Exam: See Below Course - Vital Signs Last Recorded V/S: Last Vital Signs Temp 97.1 F 02/04/19 07:22 Pulse 74 02/04/19 07:22 Resp 16 02/04/19 07:22 BP 138/74 02/04/19 07:22 Pulse Ox 92 L 02/04/19 07:22 - Orders/Labs/Meds Orders: Active Orders 24 hr Category Date Time Status EKG Documentation Completion [RC] STAT Care 02/04/19 07:23 Active CULTURE BLOOD [BC] Stat Lab 02/04/19 08:59 Received CULTURE BLOOD [BC] Stat Lab 02/04/19 09:09 Results UA RFX JON AND CULT IF INDIC [URIN] Stat Lab 02/04/19 07:23 Ordered Levofloxacin/Dextrose 5%-Water [Levaquin in D5W 500 MG/ Med 02/04/19 10:10 Active 100 ML] 500 mg Premix Bag 1 bag IV ONETIME Sodium Chloride 0.9% [Normal Saline] 1,000 ml Med 02/04/19 07:30 Active IV STAT Blood Culture x2 Reflex Set [OM.PC] Stat Oth 02/04/19 08:40 Ordered Medication Orders Sodium Chloride (Normal Saline) 1,000 mls @ 125 mls/hr IV STAT CARLOS Last Admin: 02/04/19 08:12 Dose: 125 mls/hr Levofloxacin/Dextrose 500 mg/ (Premix) 100 mls @ 100 mls/hr IV ONETIME ONE Stop: 02/04/19 11:09 Labs: Laboratory Tests 02/04/19 02/04/19 02/04/19 Range/Units 07:39 07:39 07:39 WBC 6.99 (4.0-11.0) K/uL RBC 4.76 (4.30-5.90) M/uL Hgb 13.8 (12.0-16.0) g/dL Hct 42.9 (36.0-46.0) % MCV 90.1 (80.0-98.0) fL MCH 29.0 (27.0-32.0) pg MCHC 32.2 (31.0-37.0) g/dL RDW Std Deviation 48.3 (28.0-62.0) fl RDW Coeff of Gillian 15 (11.0-15.0) % Plt Count 164 (150-400) K/uL MPV 10.00 (7.40-12.00) fL Neut % (Auto) 76.5 (48.0-80.0) % Lymph % (Auto) 14.3 L (16.0-40.0) % [place] % (Auto) 6.6 (0.0-15.0) % Eos % (Auto) 2.0 (0.0-7.0) % Baso % (Auto) 0.6 (0.0-1.5) % Neut # (Auto) 5.4 (1.4-5.7) K/uL Lymph # (Auto) 1.0 (0.6-2.4) K/uL [place] # (Auto) 0.5 (0.0-0.8) K/uL Eos # (Auto) 0.1 (0.0-0.7) K/uL Baso # (Auto) 0.0 (0.0-0.1) K/uL Nucleated RBC % 0.0 /100WBC Nucleated RBCs # 0 K/uL INR 1.02 Sodium 144 (136-145) mmol/L Potassium 4.1 (3.5-5.1) mmol/L Chloride 109 H (98-107) mmol/L Carbon Dioxide 24.9 (21.0-32.0) mmol/L BUN 22 H (7.0-18.0) mg/dL Creatinine 1.1 H (0.6-1.0) mg/dL Est Cr Clr Drug Dosing 27.42 mL/min Estimated GFR (MDRD) 46.8 ml/min Glucose 103 (74-106) mg/dL Calcium 8.8 (8.5-10.1) mg/dL Total Bilirubin 0.5 (0.2-1.0) mg/dL AST 33 (15-37) IU/L ALT 38 (14-63) IU/L Alkaline Phosphatase 82 (46-116) U/L Troponin I < 0.050 (0.000-0.056) ng/mL B-Natriuretic Peptide (<100) PG/ML Total Protein 6.6 (6.4-8.2) g/dL Albumin 3.0 L (3.4-5.0) g/dL Globulin 3.6 (2.6-4.0) g/dL Albumin/Globulin Ratio 0.8 L (0.9-1.6) 02/04/19 Range/Units 07:39 WBC (4.0-11.0) K/uL RBC (4.30-5.90) M/uL Hgb (12.0-16.0) g/dL Hct (36.0-46.0) % MCV (80.0-98.0) fL MCH (27.0-32.0) pg MCHC (31.0-37.0) g/dL RDW Std Deviation (28.0-62.0) fl RDW Coeff of Gillian (11.0-15.0) % Plt Count (150-400) K/uL MPV (7.40-12.00) fL Neut % (Auto) (48.0-80.0) % Lymph % (Auto) (16.0-40.0) % Robertson % (Auto) (0.0-15.0) % Eos % (Auto) (0.0-7.0) % Baso % (Auto) (0.0-1.5) % Neut # (Auto) (1.4-5.7) K/uL Lymph # (Auto) (0.6-2.4) K/uL Robertson # (Auto) (0.0-0.8) K/uL Eos # (Auto) (0.0-0.7) K/uL Baso # (Auto) (0.0-0.1) K/uL Nucleated RBC % /100WBC Nucleated RBCs # K/uL INR Sodium (136-145) mmol/L Potassium (3.5-5.1) mmol/L Chloride (98-107) mmol/L Carbon Dioxide (21.0-32.0) mmol/L BUN (7.0-18.0) mg/dL Creatinine (0.6-1.0) mg/dL Est Cr Clr Drug Dosing mL/min Estimated GFR (MDRD) ml/min Glucose (74-106) mg/dL Calcium (8.5-10.1) mg/dL Total Bilirubin (0.2-1.0) mg/dL AST (15-37) IU/L ALT (14-63) IU/L Alkaline Phosphatase (46-116) U/L Troponin I (0.000-0.056) ng/mL B-Natriuretic Peptide 599 H (<100) PG/ML Total Protein (6.4-8.2) g/dL Albumin (3.4-5.0) g/dL Globulin (2.6-4.0) g/dL Albumin/Globulin Ratio (0.9-1.6) Meds: Medications Generic Name Dose Route Start Last Admin Trade Name Freq PRN Reason Stop Dose Admin Sodium Chloride 1,000 mls @ 125 mls/hr 02/04/19 07:30 02/04/19 08:12 Normal Saline IV 125 mls/hr STAT CARLOS Administration Levofloxacin/Dextrose 500 mg/ 100 mls @ 100 mls/hr 02/04/19 10:10 Premix IV 02/04/19 11:09 ONETIME ONE Departure - Departure Time of Disposition: 10:43 Disposition: Home, Self-Care 01 Condition: Fair Clinical Impression: Pneumonia - Discharge Information Referrals: PCP,None [Primary Care Provider] - - My Orders Last 24 Hours: My Active Orders 02/04/19 07:23 EKG Documentation Completion [RC] STAT UA RFX JON AND CULT IF INDIC [URIN] Stat 02/04/19 07:30 Sodium Chloride 0.9% [Normal Saline] 1,000 ml IV STAT 02/04/19 08:40 Blood Culture x2 Reflex Set [OM.PC] Stat 02/04/19 08:59 CULTURE BLOOD [BC] Stat 02/04/19 09:09 CULTURE BLOOD [BC] Stat 02/04/19 10:10 Levofloxacin/Dextrose 5%-Water [Levaquin in D5W 500 MG/100 ML] 500 mg Premix Bag 1 bag IV ONETIME - Assessment/Plan Last 24 Hours: My Active Orders 02/04/19 07:23 EKG Documentation Completion [RC] STAT UA RFX JON AND CULT IF INDIC [URIN] Stat 02/04/19 07:30 Sodium Chloride 0.9% [Normal Saline] 1,000 ml IV STAT 02/04/19 08:40 Blood Culture x2 Reflex Set [OM.PC] Stat 02/04/19 08:59 CULTURE BLOOD [BC] Stat 02/04/19 09:09 CULTURE BLOOD [BC] Stat 02/04/19 10:10 Levofloxacin/Dextrose 5%-Water [Levaquin in D5W 500 MG/100 ML] 500 mg Premix Bag 1 bag IV ONETIME
[2019-02-04] MEDS ORDERED: Sodium Chloride 0.9% 1,000 ML IV SCH (07:30)
[2019-02-04 08:11] LABS: CHLORIDE,CL 109 mmol/L (98-107); SODIUM,NA 144 mmol/L (136-145)
--- NOTE | 2019-02-04 08:12 | CT ---
Indication: Fall Technique: Routine noncontrast CT brain Please note that all CT scans at this facility use dose modulation, iterative reconstruction, and/or weight-based dosing when appropriate to reduce radiation dose to as low as reasonably achievable. Comparison: CT September 23, 2017 Findings: Low-density within the left parietal cortex, new since the prior study. No hemorrhage or mass effect. No extra-axial fluid. No hydrocephalus. Mild generalized cortical atrophy. No fracture. Patchy areas of low attenuation in the white matter bilaterally which are most consistent with small vessel ischemic disease. Visualized sinuses clear. Impression: Left parietal infarct. No hemorrhage or subdural hematoma. No mass or mass effect. Stable ventricular system. Mild generalized atrophy. Please note that all CT scans at this facility use dose modulation, iterative reconstruction, and/or weight-based dosing when appropriate to reduce radiation dose to as low as reasonably achievable. Dictated by Reimgio Webb MD @ Feb 04 2019 8:07AM Signed by Dr. Remigio Webb @ Feb 04 2019 8:11AM
--- NOTE | 2019-02-04 08:25 | CT ---
Indication: Fall Technique: Routine noncontrast CT cervical spine Please note that all CT scans at this facility use dose modulation, iterative reconstruction, and/or weight-based dosing when appropriate to reduce radiation dose to as low as reasonably achievable. Comparison: No comparison Findings: There is mild wedging involving the T1 superior endplate. An associated spur is present anteriorly suggesting that this is likely chronic. Incomplete anterior spurring at C6 and C7. Mild calcification of the intervertebral discs noted throughout the cervical spine. Osteopenia. The C1-2 relationship is maintained. Intact spinous processes and C1 posterior arch. Prevertebral soft tissues are normal without swelling. No paraspinal soft tissue mass. Right posterior apical pleural thickening. Scarring in both lung apices. Intact visualized ribs. Impression: No acute cervical spine fracture. No facet malalignment. Mild chronic wedging of the T1 superior endplate. Please note that all CT scans at this facility use dose modulation, iterative reconstruction, and/or weight-based dosing when appropriate to reduce radiation dose to as low as reasonably achievable. Dictated by Remigio Webb MD @ Feb 04 2019 8:11AM Signed by Dr. Remigio Webb @ Feb 04 2019 8:24AM
--- NOTE | 2019-02-04 08:38 | CR ---
INDICATION: Fall TECHNIQUE: Chest 1 views COMPARISON: November 26, 2018 FINDINGS: Cardiovascular and mediastinum: Cardiac silhouette is enlarged. There is tortuosity of the aorta. Vascular calcifications are present. Lungs and pleural spaces: Patchy reticulonodular densities within the right upper lobe. Chronic cephalization pulmonary vascularity. Small right pleural effusion again noted. Bones and soft tissues: Left shoulder replacement hardware again noted. IMPRESSION: Right upper lobe infiltrate or aspiration pneumonitis. Chronic small right pleural effusion. Dictated by Remigio Webb MD @ Feb 04 2019 8:34AM Signed by Dr. Remigio Webb @ Feb 04 2019 8:37AM
--- NOTE | 2019-02-04 08:40 | CR ---
INDICATION: Fall TECHNIQUE: AP pelvis. COMPARISON: none FINDINGS: Intact pubic rami and sacrum. Femoral neck intact bilaterally. Degenerative changes lower lumbar spine. Spurring both hips. Spurring at the greater trochanters and iliac crests. IMPRESSION: No fracture. Dictated by Remigio Webb MD @ Feb 04 2019 8:37AM Signed by Dr. Remigio Webb @ Feb 04 2019 8:39AM
--- NOTE | 2019-02-04 09:52 | CR ---
EXAM DATE: 02/04/19 PATIENT'S AGE: 88 Patient: ADELINA CORCORAN Facility: [facility] Site . Site : [id number] Study: XRay-Extremity Right [id number]/21/2019 8:12:55 AM Ordering Physician: Doctor Mendez Final Report: Indication: Injury and pain Technique: Right wrist 3 view Comparison: November 03, 2014 Findings: Chronic fracture deformity of the distal radial metaphysis noted. No acute fracture or old fracture deformity at the base of the ulnar styloid. Degenerative changes at the wrist. No carpal fracture. Intact metacarpals. Impression: Chronic fracture deformities of the distal radial metaphysis and ulnar styloid. No acute fracture. Dictated by Remigio Webb MD @ Feb 04 2019 8:32AM Signed by: Remigio Webb MD @02/04/2019 8:34:48 AM (Electronic Signature) Report Signed by Proxy. JI
[2019-02-04] MEDS ORDERED: Levofloxacin/Dextrose 5%-Water 500 MG in Premix Bag 1 BAG IV ONE (10:10)
[2019-02-04] MEDS ORDERED: Albuterol/Ipratropium 3.0-0.5 MG/3 ML Neb Soln NEB PRN (11:26)
[2019-02-04] MEDS ORDERED: Ondansetron 4 MG/2 ML SDV IVPUSH PRN (11:26)
[2019-02-04] MEDS ORDERED: Acetaminophen 325 MG Tab PO PRN (11:26)
--- NOTE | 2019-02-04 11:26 | PCM.HP ---
Addendum entered and electronically signed by Kathy Head NP 02/04/19 14:47 : Spoke with family and Gregoria about transfer, the son reports she told him this heaviness in her legs has been occurring for the past couple weeks and today has been the worst. Original Note: <Kathy Head - Last Filed: 02/04/19 14:34> H&P History of Present Illness - General Date of Service: 02/04/19 Admit Problem/Dx: Admission Diagnosis/Problem Admission Diagnosis/Problem Pneumonia Source of Information: Patient, Old Records History Limitations: Reports: No Limitations - History of Present Illness Initial Comments - Free Text/Narative: This 88 year old female with pmh of HTN, persistent Afib, GLENDY on CPAP and oxygen at night, COPD and, hx CVA 1 year ago, non obstructive CAD presented to the ED today after falling at her house. 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 She reports she felt her legs were so heavy and weak when she tried getting up from her bed that she then fell. She reports hitting her head and landing hard on her R hand/wrist, which is sore. She denies losing consciousness or passing out. She reports her legs have been heavy feeling and just weak at home recently, she has tried doing some exercises to get them stronger. She denies any one sided weakness or focal neurologic deficit. She denies headache or URI symptoms. Mild intermittent dry cough. No troubles swallowing or coughing with eating. No recent episode of emesis. She reports no ear pain. No subjective fevers or chills at home. No chest pain or palpitations. No abdominal pain, reports diarrhea, which is at her baseline. She reports she is just tired and has been seeing Dr Andrade for this, had a Zio patch on to monitor heart rhythm. This was removed in the ED she reports. She reports just taking Plavix, no ASA and no other blood thinner. In the ED, no leukocytosis noted. Hgb 13.8, INR 1.02, Na 144. Cl 109, BUN 22, Cr 1.1. BNp 599. CXR revealed RUL infiltrate or aspiration pneumonitis and sm R pleural effusion. Pelvis xray and wrist Xray, victor m no acute fracture. Cervical spine CT, no acute fractures. Head CT reveals new L parietal infarct, new from September 2017 CT, but no hemorrhage or hematoma noted. She was treated with NS and Levaquin 750 mg IV. She will be admitted with aspiration pneumonia and fall with generalized weakness PCP, Dr Clayton Tuber Machine Operator Helper, Dr Andrade Right Wrist Pain Score (Numeric/FACES): 8 - Related Data Allergies/Adverse Reactions: Allergies Allergy/AdvReac Type Severity Reaction Status Date / Time clarithromycin [From Biaxin] Allergy Cannot Verified 02/04/19 07:53 Remember metronidazole Allergy Cannot Verified 02/04/19 07:53 Remember oxaprozin [From Daypro] Allergy Cannot Verified 02/04/19 07:53 Remember Penicillins Allergy Swelling Verified 02/04/19 07:53 sulfasalazine Allergy Cannot Verified 02/04/19 07:53 [From Azulfidine] Remember Home Medications: Home Meds Albuterol [Ventolin HFA] 1 - 2 puff INH ASDIRECTED PRN 02/04/19 [History] Calcium Carbonate [Calcium] 600 mg PO DAILY 02/04/19 [History] Clopidogrel Bisulfate [Clopidogrel] 75 mg PO DAILY 02/04/19 [History] Lutein/Minerals/Vit A,C & E [Ocuvite] 1 tab PO DAILY 02/04/19 [History] Nitroglycerin [Nitrostat] 0.4 mg SL .EVERY 5 MINUTES PRN 02/04/19 [History] RX: Furosemide 20 mg PO DAILY 02/04/19 [History] RX: LORazepam 0.5 mg PO ASDIRECTED PRN 02/04/19 [History] RX: Levothyroxine [Synthroid] 100 mcg PO ACBREAKFAST 02/04/19 [History] RX: Losartan Potassium 100 mg PO DAILY 02/04/19 [History] RX: Magnesium Oxide 400 mg PO BID 02/04/19 [History] RX: Metoprolol Succinate 50 mg PO DAILY 02/04/19 [History] RX: Pantoprazole [ProTONIX] 40 mg PO DAILY 02/04/19 [History] RX: Potassium Chloride 10 meq PO BID 02/04/19 [History] RX: Sertraline [Zoloft] 100 mg PO DAILY 02/04/19 [History] RX: amLODIPine Besylate [Norvasc] 5 mg PO DAILY 02/04/19 [History] RX: atorvaSTATin [Lipitor] 20 mg PO DAILY 02/04/19 [History] Past Medical History HEENT History: Reports: Cataract, Impaired Vision, Macular Degeneration, Other ( See Below) Other HEENT History: Bilateral Hearing aids, when out [facility] on LEFT; vertigo Cardiovascular History: Reports: Afib, Angina, Arrhythmia, Heart Failure, High Cholesterol, Hypertension, [place] Respiratory History: Reports: COPD, Sleep Apnea Other Respiratory History: on CPAP Gastrointestinal History: Reports: Chronic Diarrhea, Diverticulosis Genitourinary History: Reports: Urinary Incontinence 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: Musculoskeletal History: Reports: Fracture Other Musculoskeletal History: hx: Fractured wrists, fractured foot Neurological History: Reports: CVA (1 year ago, 2017), Vertigo Psychiatric History: Reports: Anxiety, Depression Endocrine/Metabolic History: Reports: Hypothyroidism Hematologic History: Reports: None Oncologic (Cancer) History: Reports: Squamous Cell Carcinoma Other Oncologic History: hx: Skin cancer removed, "eye cancer" Dermatologic History: Reports: Eczema - Infectious Disease History Infectious Disease History: Reports: Chicken Pox, Measles, Mumps, Shingles - Past Surgical History HEENT Surgical History: Reports: Cataract Surgery, Other (See Below) GI Surgical History: Reports: Appendectomy, Cholecystectomy Female Surgical History: Reports: Hysterectomy, Salpingo-Oophorectomy Musculoskeletal Surgical History: Reports: Shoulder Replacement Social & Family History - Family History Family Medical History: Noncontributory Cardiac: Reports: [place] Psychiatric: Reports: Anxiety, Depression Oncologic: Reports: Bone, Colon, Leukemia, Skin - Tobacco Use Smoking Status *Q: Never Smoker - Caffeine Use Caffeine Use: Reports: None Caffeine Use Comment: rarely drinks tea - Alcohol Use Alcohol Use History: No - Recreational Drug Use Recreational Drug Use: No - Living Situation & Occupation Living situation: Reports: Alone Occupation: Retired H&P Review of Systems - Review of Systems: Review Of Systems: See Below General: Reports: Weakness (generalized). Denies: Fever, Chills HEENT: Reports: Vertigo (at baseline). Denies: Headaches, Sinus Congestion, Sore Throat Pulmonary: Reports: Cough (dry). Denies: Shortness of Breath, Sputum, Hemoptysis Cardiovascular: Reports: No Symptoms. Denies: Chest Pain, Palpitations, Dyspnea on Exertion, Orthopnea, Edema, Lightheadedness, Syncope Gastrointestinal: Reports: No Symptoms, Diarrhea (chronic). Denies: Abdominal Pain, Black Stool, Bloody Stool, Nausea, Vomiting Genitourinary: Reports: No Symptoms, Frequency (at baseline). Denies: Dysuria, Burning, Pain, Hematuria, Retention Musculoskeletal: Reports: Joint Pain (R wrist, post fall. ) Skin: Reports: Bruising (R wrist, L eye) Psychiatric: Reports: No Symptoms Neurological: Reports: No Symptoms Hematologic/Lymphatic: Reports: No Symptoms Immunologic: Reports: No Symptoms Exam - Exam Exam: See Below - Vital Signs Vital Signs: Last Vital Signs Temp 97.1 F 02/04/19 07:22 Pulse 76 02/04/19 11:08 Resp 16 02/04/19 11:08 BP 133/68 02/04/19 11:08 Pulse Ox 93 L 02/04/19 11:08 Weight: 71.9 kg - Exam General: Alert, Oriented, Cooperative HEENT: Conjunctiva Clear, Mucosa Moist & [place], Posterior Pharynx Clear, Pupils Equal, Pupils Reactive, Other (abraision to L cheek bone, just below eye.) Neck: Supple, Trachea Midline Lungs: Clear to Auscultation, Normal Respiratory Effort Cardiovascular: Regular Rate, Regular Rhythm, Normal S1, Normal S2. No: Irregular Rhythm, Bradycardia, Systolic Murmur GI/Abdominal Exam: Normal Bowel Sounds, Soft, Non-Tender, No Organomegaly, No Mass Back Exam: Normal Inspection, Full Range of Motion Extremities: Normal Inspection, Normal Range of Motion, Non-Tender, No Pedal Edema, Normal Capillary Refill Peripheral Pulses: 0: Dorsalis Pedis (L), Dorsalis Pedis (R), 1+: Posterior Tibial (L), Posterior Tibial (R) Skin: Cool (bilateral feet) Neurological: Cranial Nerves Intact, Strength Equal Bilateral, Normal Speech Neuro Extensive - Mental Status: Alert, Oriented x3 Neuro Extensive - Motor, Sensory, Reflexes: CN II-XII Intact, Normal Gait ( slightly unsteady) Psychiatric: Alert, Normal Affect, Normal Mood - Patient Data Lab Results Last 24 hrs: Laboratory Results - last 24 hr 02/04/19 02/04/19 02/04/19 Range/Units 07:39 07:39 07:39 WBC 6.99 (4.0-11.0) K/uL RBC 4.76 (4.30-5.90) M/uL Hgb 13.8 (12.0-16.0) g/dL Hct 42.9 (36.0-46.0) % MCV 90.1 (80.0-98.0) fL MCH 29.0 (27.0-32.0) pg MCHC 32.2 (31.0-37.0) g/dL RDW Std Deviation 48.3 (28.0-62.0) fl RDW Coeff of Gillian 15 (11.0-15.0) % Plt Count 164 (150-400) K/uL MPV 10.00 (7.40-12.00) fL Neut % (Auto) 76.5 (48.0-80.0) % Lymph % (Auto) 14.3 L (16.0-40.0) % Norman % (Auto) 6.6 (0.0-15.0) % Eos % (Auto) 2.0 (0.0-7.0) % Baso % (Auto) 0.6 (0.0-1.5) % Neut # (Auto) 5.4 (1.4-5.7) K/uL Lymph # (Auto) 1.0 (0.6-2.4) K/uL Norman # (Auto) 0.5 (0.0-0.8) K/uL Eos # (Auto) 0.1 (0.0-0.7) K/uL Baso # (Auto) 0.0 (0.0-0.1) K/uL Nucleated RBC % 0.0 /100WBC Nucleated RBCs # 0 K/uL INR 1.02 Sodium 144 (136-145) mmol/L Potassium 4.1 (3.5-5.1) mmol/L Chloride 109 H (98-107) mmol/L Carbon Dioxide 24.9 (21.0-32.0) mmol/L BUN 22 H (7.0-18.0) mg/dL Creatinine 1.1 H (0.6-1.0) mg/dL Est Cr Clr Drug Dosing 27.42 mL/min Estimated GFR (MDRD) 46.8 ml/min Glucose 103 (74-106) mg/dL Calcium 8.8 (8.5-10.1) mg/dL Total Bilirubin 0.5 (0.2-1.0) mg/dL AST 33 (15-37) IU/L ALT 38 (14-63) IU/L Alkaline Phosphatase 82 (46-116) U/L Troponin I < 0.050 (0.000-0.056) ng/mL B-Natriuretic Peptide (<100) PG/ML Total Protein 6.6 (6.4-8.2) g/dL Albumin 3.0 L (3.4-5.0) g/dL Globulin 3.6 (2.6-4.0) g/dL Albumin/Globulin Ratio 0.8 L (0.9-1.6) 02/04/19 Range/Units 07:39 WBC (4.0-11.0) K/uL RBC (4.30-5.90) M/uL Hgb (12.0-16.0) g/dL Hct (36.0-46.0) % MCV (80.0-98.0) fL MCH (27.0-32.0) pg MCHC (31.0-37.0) g/dL RDW Std Deviation (28.0-62.0) fl RDW Coeff of Gillian (11.0-15.0) % Plt Count (150-400) K/uL MPV (7.40-12.00) fL Neut % (Auto) (48.0-80.0) % Lymph % (Auto) (16.0-40.0) % Norman % (Auto) (0.0-15.0) % Eos % (Auto) (0.0-7.0) % Baso % (Auto) (0.0-1.5) % Neut # (Auto) (1.4-5.7) K/uL Lymph # (Auto) (0.6-2.4) K/uL Norman # (Auto) (0.0-0.8) K/uL Eos # (Auto) (0.0-0.7) K/uL Baso # (Auto) (0.0-0.1) K/uL Nucleated RBC % /100WBC Nucleated RBCs # K/uL INR Sodium (136-145) mmol/L Potassium (3.5-5.1) mmol/L Chloride (98-107) mmol/L Carbon Dioxide (21.0-32.0) mmol/L BUN (7.0-18.0) mg/dL Creatinine (0.6-1.0) mg/dL Est Cr Clr Drug Dosing mL/min Estimated GFR (MDRD) ml/min Glucose (74-106) mg/dL Calcium (8.5-10.1) mg/dL Total Bilirubin (0.2-1.0) mg/dL AST (15-37) IU/L ALT (14-63) IU/L Alkaline Phosphatase (46-116) U/L Troponin I (0.000-0.056) ng/mL B-Natriuretic Peptide 599 H (<100) PG/ML Total Protein (6.4-8.2) g/dL Albumin (3.4-5.0) g/dL Globulin (2.6-4.0) g/dL Albumin/Globulin Ratio (0.9-1.6) Result Diagrams: 02/04/19 07:39 02/04/19 07:39 Tariq Results Last 24 hrs: Microbiology 02/04/19 09:09 Anaerobic Blood Culture - Final Blood - Venous - Lab Draw *Q Meaningful Use (ADM) - VTE Risk Assess *Q Each Risk Factor Represents 1 Point: Obesity ( BMI > 25 kg/m2), Congestive heart failure (CHF), Abnormal Pulmonary Function (COPD) Total Score 1 Point Risk Factors: 3 Each Risk Factor Represents 2 Points: None Total Score 2 Point Risk Factors: 0 Each Risk Factor Represents 3 Points: Age 75 Years or Greater Total Score 3 Point Risk Factors: 3 Each Risk Factor Represents 5 Points: None Total Score 5 Point Risk Factors: 0 Venous Thromboembolism Risk Factor Score *Q: 6 - Problem List (1) Aspiration pneumonia SNOMED Code(s): 655822916 ICD Code: J69.0 - PNEUMONITIS DUE TO INHALATION OF FOOD AND VOMIT Status: Acute Qualifiers: Aspiration pneumonia type: unspecified Laterality: right Lung location: upper lobe of lung Qualified Code(s): J69.0 - Pneumonitis due to inhalation of food and vomit (2) Generalized weakness SNOMED Code(s): 19774037 ICD Code: R53.1 - WEAKNESS Status: Acute (3) Fall SNOMED Code(s): 4943100, 127821505 ICD Code: W19.XXXA - UNSPECIFIED FALL, INITIAL ENCOUNTER Status: Acute Qualifiers: Encounter type: initial encounter Qualified Code(s): W19.XXXA - Unspecified fall, initial encounter (4) Afib SNOMED Code(s): 12843817 ICD Code: I48.91 - UNSPECIFIED ATRIAL FIBRILLATION Status: Chronic Qualifiers: Atrial fibrillation type: persistent Qualified Code(s): I48.1 - Persistent atrial fibrillation (5) History of CVA (cerebrovascular accident) SNOMED Code(s): 954310399 ICD Code: Z86.73 - PRSNL HX OF TIA (TIA), AND CEREB INFRC W/O RESID DEFICITS Status: Chronic (6) COPD (chronic obstructive pulmonary disease) SNOMED Code(s): 92753309 ICD Code: J44.9 - CHRONIC OBSTRUCTIVE PULMONARY DISEASE, UNSPECIFIED Status : Chronic Qualifiers: COPD type: chronic bronchitis Chronic bronchitis type: simple Qualified Code(s): J41.0 - Simple chronic bronchitis (7) CAD (coronary artery disease) SNOMED Code(s): 37837564 ICD Code: I25.10 - ATHSCL HEART DISEASE OF [place] CORONARY ARTERY W/O ANG PCTRS Status: Chronic Qualifiers: Coronary Disease-Associated Artery/Lesion type: [place] artery [place] vs. transplanted heart: [place] heart Associated angina: without angina Qualified Code(s): I25.10 - Atherosclerotic heart disease of [place] coronary artery without angina pectoris (8) CHF (congestive heart failure) SNOMED Code(s): 49961108 ICD Code: I50.9 - HEART FAILURE, UNSPECIFIED Status: Chronic Priority: High (9) Hypothyroidism SNOMED Code(s): 63578356 ICD Code: E03.9 - HYPOTHYROIDISM, UNSPECIFIED Status: Chronic Qualifiers: Hypothyroidism type: acquired Qualified Code(s): E03.9 - Hypothyroidism, unspecified (10) Vertigo SNOMED Code(s): 475585735 ICD Code: R42 - DIZZINESS AND GIDDINESS Status: Chronic (11) Dyslipidemia SNOMED Code(s): 612444179 ICD Code: E78.5 - HYPERLIPIDEMIA, UNSPECIFIED Status: Chronic Priority: Medium (12) HTN (hypertension) SNOMED Code(s): 42786203 ICD Code: I10 - ESSENTIAL (PRIMARY) HYPERTENSION Status: Chronic Priority : Medium Qualifiers: Hypertension type: essential hypertension Qualified Code(s): I10 - Essential (primary) hypertension (13) Sleep apnea SNOMED Code(s): 44627818 ICD Code: G47.30 - SLEEP APNEA, UNSPECIFIED Status: Chronic Priority: Medium Qualifiers: Sleep apnea type: unspecified type Qualified Code(s): G47.30 - Sleep apnea , unspecified (14) Oxygen dependent SNOMED Code(s): 725901906526 ICD Code: Z99.81 - DEPENDENCE ON SUPPLEMENTAL OXYGEN Status: Chronic Problem List Initiated/Reviewed/Updated: Yes Orders Last 24hrs: Active Orders 24 hr Category Date Time Status Admission Status [Patient Status] [ADT] Stat ADT 02/04/19 10:43 Active EKG Documentation Completion [RC] STAT Care 02/04/19 07:23 Active CULTURE BLOOD [BC] Stat Lab 02/04/19 08:59 Received CULTURE BLOOD [BC] Stat Lab 02/04/19 09:09 Results UA RFX TARIQ AND CULT IF INDIC [URIN] Stat Lab 02/04/19 07:23 Ordered Blood Culture x2 Reflex Set [OM.PC] Stat Oth 02/04/19 08:40 Ordered Assessment/Plan Comment:: This 88 year old female admitted with aspiration pneumonia, fall and generalized weakness 1. Aspiration Pneumonia: Cultures pending, including BC and sputum. Continue Levaquin 750 mg IV Q48 hr due to renal dosing as well as Clindamycin 300 mg TID. Denies concerns with swallowing, but will have ST consult to evaluate. 2. Generalized weakness: OT/PT consulted to evaluate and treat due to weakness and R wrist strain post fall. Will check UA to evaluate for UTI. 3. Afib: SR on monitor/ EKG. Continue Metoprolol. Upon review of Dr Andrade's recent clinic not, they stopped Eliquis due to highfall risk. Zio patch was in place to evaluate for sick sinus syndrome. Notified Dr Davis of her admission. 4. CAD: Stable, no chest pain. Continue statin and Plavix. 5. CHF: stable, preserved EF. Continue Lasix. Monitor I/O and daily weight while admitted. BUN/Cr at baseline. VTE prophylaxis: Heparin Q12hr Dispo: 1-3 days pending improvement Discharge Plan: Nurse came with concern of patient complaining of numbness and tingling to bilateral feet after PT assessed her. Upon initial assessment she did not include this in her complaints. She reports this has been going on since her fall and having these sensations intermittently. She was noted to have cold pale bilateral feet with cap refill of >5 seconds. Faintly palpable posterior tibial pulses and non palpable pedal pulses. I was unable to doppler a pedal pulse bilaterally. I called Dr Sen to update him and he arrived to assess patient. Son, Alyse arrived at this same time and was updated on this. We decided it was in her best interest to be transferred to be evaluated by vascular surgeon. I spoke with Dr Joy, ED physician who has kindly accepted her. We will transfer her via helicopter due to time sensitive nature of acute arterial occlusion to bilateral feet. Gregoria is in agreement with transfer. <Seth Sen M - Last Filed: 02/05/19 07:40> H&P History of Present Illness - General Admit Problem/Dx: Admission Diagnosis/Problem Admission Diagnosis/Problem Pneumonia - History of Present Illness Initial Comments - Free Text/Narative: I have seen and examined the patient independently of Kathy Head CNP. I have discussed the case with her. I have reviewed and agree with the assessment and plan of care for the patient as outlined by her. Please see orders. The patient was noted to be somewhat vague initially. The patient likely has had worsening PAD in her feet and has resulted in occlusion of her arterial supply to her feet. Both feet were cool, pale and pulseless. Capillary refill 6 to 8 seconds. Her insensate feet likely lead to falling prior to ER presentation. Transfer ordered rather than wait for arterial study here. Exam - Vital Signs Vital Signs: Last Vital Signs Temp 36.2 C 02/04/19 07:22 Pulse 77 02/04/19 11:50 Resp 16 02/04/19 11:50 BP 145/74 H 02/04/19 11:50 Pulse Ox 94 L 02/04/19 11:50 - Patient Data Lab Results Last 24 hrs: Laboratory Results - last 24 hr 02/04/19 02/04/19 02/04/19 Range/Units 07:39 07:39 07:39 WBC 6.99 (4.0-11.0) K/uL RBC 4.76 (4.30-5.90) M/uL Hgb 13.8 (12.0-16.0) g/dL Hct 42.9 (36.0-46.0) % MCV 90.1 (80.0-98.0) fL MCH 29.0 (27.0-32.0) pg MCHC 32.2 (31.0-37.0) g/dL RDW Std Deviation 48.3 (28.0-62.0) fl RDW Coeff of Gillian 15 (11.0-15.0) % Plt Count 164 (150-400) K/uL MPV 10.00 (7.40-12.00) fL Neut % (Auto) 76.5 (48.0-80.0) % Lymph % (Auto) 14.3 L (16.0-40.0) % Norman % (Auto) 6.6 (0.0-15.0) % Eos % (Auto) 2.0 (0.0-7.0) % Baso % (Auto) 0.6 (0.0-1.5) % Neut # (Auto) 5.4 (1.4-5.7) K/uL Lymph # (Auto) 1.0 (0.6-2.4) K/uL Norman # (Auto) 0.5 (0.0-0.8) K/uL Eos # (Auto) 0.1 (0.0-0.7) K/uL Baso # (Auto) 0.0 (0.0-0.1) K/uL Nucleated RBC % 0.0 /100WBC Nucleated RBCs # 0 K/uL INR 1.02 Sodium 144 (136-145) mmol/L Potassium 4.1 (3.5-5.1) mmol/L Chloride 109 H (98-107) mmol/L Carbon Dioxide 24.9 (21.0-32.0) mmol/L BUN 22 H (7.0-18.0) mg/dL Creatinine 1.1 H (0.6-1.0) mg/dL Est Cr Clr Drug Dosing 27.42 mL/min Estimated GFR (MDRD) 46.8 ml/min Glucose 103 (74-106) mg/dL Calcium 8.8 (8.5-10.1) mg/dL Magnesium (1.8-2.4) mg/dL Total Bilirubin 0.5 (0.2-1.0) mg/dL AST 33 (15-37) IU/L ALT 38 (14-63) IU/L Alkaline Phosphatase 82 (46-116) U/L Troponin I < 0.050 (0.000-0.056) ng/mL B-Natriuretic Peptide (<100) PG/ML Total Protein 6.6 (6.4-8.2) g/dL Albumin 3.0 L (3.4-5.0) g/dL Globulin 3.6 (2.6-4.0) g/dL Albumin/Globulin Ratio 0.8 L (0.9-1.6) 02/04/19 02/04/19 Range/Units 07:39 07:39 WBC (4.0-11.0) K/uL RBC (4.30-5.90) M/uL Hgb (12.0-16.0) g/dL Hct (36.0-46.0) % MCV (80.0-98.0) fL MCH (27.0-32.0) pg MCHC (31.0-37.0) g/dL RDW Std Deviation (28.0-62.0) fl RDW Coeff of Gillian (11.0-15.0) % Plt Count (150-400) K/uL MPV (7.40-12.00) fL Neut % (Auto) (48.0-80.0) % Lymph % (Auto) (16.0-40.0) % Norman % (Auto) (0.0-15.0) % Eos % (Auto) (0.0-7.0) % Baso % (Auto) (0.0-1.5) % Neut # (Auto) (1.4-5.7) K/uL Lymph # (Auto) (0.6-2.4) K/uL Norman # (Auto) (0.0-0.8) K/uL Eos # (Auto) (0.0-0.7) K/uL Baso # (Auto) (0.0-0.1) K/uL Nucleated RBC % /100WBC Nucleated RBCs # K/uL INR Sodium (136-145) mmol/L Potassium (3.5-5.1) mmol/L Chloride (98-107) mmol/L Carbon Dioxide (21.0-32.0) mmol/L BUN (7.0-18.0) mg/dL Creatinine (0.6-1.0) mg/dL Est Cr Clr Drug Dosing mL/min Estimated GFR (MDRD) ml/min Glucose (74-106) mg/dL Calcium (8.5-10.1) mg/dL Magnesium 1.9 (1.8-2.4) mg/dL Total Bilirubin (0.2-1.0) mg/dL AST (15-37) IU/L ALT (14-63) IU/L Alkaline Phosphatase (46-116) U/L Troponin I (0.000-0.056) ng/mL B-Natriuretic Peptide 599 H (<100) PG/ML Total Protein (6.4-8.2) g/dL Albumin (3.4-5.0) g/dL Globulin (2.6-4.0) g/dL Albumin/Globulin Ratio (0.9-1.6) Result Diagrams: 02/04/19 07:39 02/04/19 07:39 Tariq Results Last 24 hrs: Microbiology 02/04/19 09:09 Anaerobic Blood Culture - Final Blood - Venous - Lab Draw Orders Last 24hrs: Active Orders 24 hr Category Date Time Status Admission Status [Patient Status] [ADT] Stat ADT 02/04/19 10:43 Active EKG Documentation Completion [RC] STAT Care 02/04/19 07:23 Active Height and Weight [RC] DAILY Care 02/04/19 11:26 Active Intake and Output Strict [RC] ASDIRECTED Care 02/04/19 11:26 Active Oxygen Therapy [RC] PRN Care 02/04/19 11:28 Active RT Aerosol Therapy [RC] ASDIRECTED Care 02/04/19 11:30 Active RT Incentive Spirometry [RC] Q1HWA Care 02/04/19 11:26 Active Ready for Discharge [RC] PER UNIT ROUTINE Care 02/04/19 14:41 Active Telemetry Monitoring [Cardiac Monitoring] [RC] Q8H Care 02/04/19 11:32 Active Up With Assistance [RC] ASDIRECTED Care 02/04/19 11:26 Active VTE/DVT Education [RC] PER UNIT ROUTINE Care 02/04/19 11:28 Active Vital Signs [RC] Q4H Care 02/04/19 11:28 Active Consult to Speech Language Pathology [EQUIPMENT TECH Evaluation Cons 02/04/19 13:01 Active and Treatment] [CONS] Routine OT Evaluation and Treatment [CONS] Routine Cons 02/04/19 12:36 Active PT Evaluation and Treatment [CONS] Routine Cons 02/04/19 12:24 Active CULTURE BLOOD [BC] Stat Lab 02/04/19 08:59 Received CULTURE BLOOD [BC] Stat Lab 02/04/19 09:09 Results CULTURE SPUTUM + SMEAR [RM] Stat Lab 02/04/19 11:26 Ordered Blood Culture x2 Reflex Set [OM.PC] Stat Oth 02/04/19 08:40 Ordered RT Acapella [RESPCARE] Routine Oth 02/04/19 11:26 Active
[2019-02-04 11:50] VITALS: BP 145/74
[2019-02-04] MEDS ORDERED: Clindamycin Phosphate in D5W 600 MG in Premix Bag 1 BAG IV SCH ×2 (12:30)
[2019-02-04] MEDS ORDERED: Albuterol 8 GM Inhaler INH PRN (13:01)
[2019-02-04] MEDS ORDERED: LORazepam 0.5 MG Tab PO PRN (13:02)
[2019-02-04] MEDS ORDERED: amLODIPine 5 MG Tab PO SCH (13:02)
[2019-02-04] MEDS ORDERED: Clopidogrel 75 MG Tab PO SCH (13:15)
[2019-02-04] MEDS ORDERED: Furosemide 20 MG Tab PO SCH (13:15)
[2019-02-04] MEDS ORDERED: Metoprolol Succinate 50 MG Tab.ER PO SCH (13:15)
[2019-02-04] MEDS ORDERED: Losartan 50 MG Tab PO SCH (13:15)
[2019-02-04] MEDS ORDERED: Potassium Chloride 10 MEQ Tab.ER PO SCH (21:00)
[2019-02-05] MEDS ORDERED: Levothyroxine 100 MCG Tab PO SCH (07:30)
[2019-02-05] MEDS ORDERED: Pantoprazole 40 MG Tab.CR PO SCH (09:00)
[2019-02-05] MEDS ORDERED: Calcium Carbonate/Vitamin D3 1500 MG-400 Units Tab PO SCH (09:00)
[2019-02-05] MEDS ORDERED: Beta-Carotene (Vitamin A) w/Vitamin C & E plus Minerals Tab PO SCH (09:00)
[2019-02-05] MEDS ORDERED: atorvaSTATin 20 MG Tab PO SCH (09:00)
[2019-02-05] MEDS ORDERED: Sertraline 100 MG Tab PO SCH (09:00)
[2019-02-06] MEDS ORDERED: Levofloxacin/Dextrose 5%-Water 750 MG in Premix Bag 1 BAG IV SCH (10:00)
== END 2019-02-04 15:20 | DRG 178 ==
LOC: MW.ED 07:22 → MW.MS 11:11
PROVIDERS: ADMIT Internal Medicine; ATTEND Internal Medicine
DX: J69.0 Pneumonitis due to inhalation of food and vomit (principal); I48.1 Persistent atrial fibrillation; I50.32 Chronic diastolic (congestive) heart failure; G47.33 Obstructive sleep apnea (adult) (pediatric); I77.9 Disorder of arteries and arterioles, unspecified; I25.10 Atherosclerotic heart disease of native coronary artery without angina pectoris; J44.9 Chronic obstructive pulmonary disease, unspecified; E78.5 Hyperlipidemia, unspecified; I11.0 Hypertensive heart disease with heart failure; M25.531 Pain in right wrist; S00.81XA Abrasion of other part of head, initial encounter; W18.30XA Fall on same level, unspecified, initial encounter; H54.7 Unspecified visual loss; R32 Unspecified urinary incontinence; F41.9 Anxiety disorder, unspecified; F32.9 Major depressive disorder, single episode, unspecified; E03.9 Hypothyroidism, unspecified; H35.30 Unspecified macular degeneration; R42 Dizziness and giddiness; K59.09 Other constipation; R53.1 Weakness; I25.2 Old myocardial infarction; Z86.73 Personal history of transient ischemic attack (TIA), and cerebral infarction without residual deficits; Z88.1 Allergy status to other antibiotic agents; Z88.0 Allergy status to penicillin; Z88.8 Allergy status to other drugs, medicaments and biological substances; Z79.899 Other long term (current) drug therapy; Z79.890 Hormone replacement therapy; Z85.828 Personal history of other malignant neoplasm of skin; Z96.619 Presence of unspecified artificial shoulder joint; Z90.710 Acquired absence of both cervix and uterus; Z90.49 Acquired absence of other specified parts of digestive tract
CPT/HCPCS: 36415; 70450; 71045; 72125; 72170; 73110; 80053; 83735; 83880; 84484; 85025; 85610; 87040 ×2; 93005; 96361; 96365; 99285; G0390; J1956; J7040; 94667; 97161-GP; 97165-GO; J3490

== ENCOUNTER 2019-10-22 16:12 | Emergency (ER) | payer MEDICARE, BC ==
--- NOTE | 2019-10-22 16:16 | EDM.PDOC ---
ED HPI GENERAL MEDICAL PROBLEM - General Chief Complaint: Trauma Stated Complaint: PT FELL Time Seen by Provider: 10/22/19 16:15 Source of Information: Reports: Patient - History of Present Illness INITIAL COMMENTS - FREE TEXT/NARRATIVE: HISTORY AND PHYSICAL: History of present illness: [Patient fell in her garage at home entering her car , door was frozen shut she pulled too hard slipped and fell back striking the occiput she does have a goose egg on the back of her head and is on she complains of left elbow pain 5 out of 10 nonradiating as well as right wrist comfort 2 out of 10 Review of systems: As per history of present illness and below otherwise all systems reviewed and negative. Past medical history: As per history of present illness and as reviewed below otherwise noncontributory. Surgical history: As per history of present illness and as reviewed below otherwise noncontributory. Social history: No reported history of drug or alcohol abuse. Family history: As per history of present illness and as reviewed below otherwise noncontributory. Physical exam: HEENT: Atraumatic, normocephalic, pupils reactive, negative for conjunctival pallor or scleral icterus, mucous membranes moist, throat clear, neck supple, nontender, trachea midline. Contusion/swelling occiput noted Lungs: Clear to auscultation, breath sounds equal bilaterally, chest nontender. Heart: S1S2, regular, negative for clicks, rubs, or JVD. Abdomen: Soft, nondistended, nontender. Negative for masses or hepatosplenomegaly. Negative for costovertebral tenderness. Pelvis: Stable nontender. Genitourinary: Deferred. Rectal: Deferred. Extremities: Atraumatic, negative for cords or calf pain. Neurovascular unremarkable. Tender left elbow Neuro: Awake, alert, oriented. Cranial nerves II through XII unremarkable. Cerebellum unremarkable. Motor and sensory unremarkable throughout. Exam nonfocal. Diagnostics: [CBC CMP INR Left elbow 3 views Pelvis Right wrist Chest Head CT no contrast, cervical spine no contrast ] Therapeutics: Splint Discussed with Dr. Tena amphibious operations officer posterior splint in place he'll have her follow -up with Dr. Monson next week Patient declines pain medication Recommend Tylenol Recommend hold potassium Patient offered admission but declined/refused Impression: [ fall ] Contusion occiput Left upper extremity injury chronic appearance of right wrist per radiology Definitive disposition and diagnosis as appropriate pending reevaluation and review of above. back of head and left elbow Pain Score (Numeric/FACES): 10 - Related Data Allergies Allergy/AdvReac Type Severity Reaction Status Date / Time clarithromycin [From Biaxin] Allergy Cannot Verified 10/22/19 16:24 Remember metronidazole Allergy Cannot Verified 10/22/19 16:24 Remember oxaprozin [From Daypro] Allergy Cannot Verified 10/22/19 16:24 Remember Penicillins Allergy Swelling Verified 10/22/19 16:24 sulfasalazine Allergy Cannot Verified 10/22/19 16:24 [From Azulfidine] Remember Home Meds: Home Meds Albuterol [Ventolin HFA] 1 - 2 puff INH ASDIRECTED PRN 02/04/19 [History] Calcium Carbonate [Calcium] 600 mg PO DAILY 02/04/19 [History] Clopidogrel Bisulfate [Clopidogrel] 75 mg PO DAILY 02/04/19 [History] Furosemide 20 mg PO DAILY 02/04/19 [History] LORazepam 0.5 mg PO ASDIRECTED PRN 02/04/19 [History] Levothyroxine [Synthroid] 100 mcg PO ACBREAKFAST 02/04/19 [History] Losartan Potassium 100 mg PO DAILY 02/04/19 [History] Lutein/Minerals/Vit A,C & E [Ocuvite] 1 tab PO DAILY 02/04/19 [History] Magnesium Oxide 400 mg PO BID 02/04/19 [History] Metoprolol Succinate 50 mg PO DAILY 02/04/19 [History] Nitroglycerin [Nitrostat] 0.4 mg SL .EVERY 5 MINUTES PRN 02/04/19 [History] Pantoprazole [ProTONIX] 40 mg PO DAILY 02/04/19 [History] Potassium Chloride 10 meq PO BID 02/04/19 [History] Sertraline [Zoloft] 100 mg PO DAILY 02/04/19 [History] amLODIPine Besylate [Norvasc] 5 mg PO DAILY 02/04/19 [History] atorvaSTATin [Lipitor] 20 mg PO DAILY 02/04/19 [History] Warfarin Sodium [Jantoven] 2 mg PO ASDIRECTED 10/22/19 [History] Past Medical History HEENT History: Reports: Cataract, Impaired Vision, Macular Degeneration, Other ( See Below) Other HEENT History: Bilateral Hearing aids, when out [facility] on LEFT; vertigo Cardiovascular History: Reports: Afib, Angina, Arrhythmia, Heart Failure, High Cholesterol, Hypertension, [place] Other Cardiovascular History: mini stroke 10 years ago Respiratory History: Reports: COPD, Sleep Apnea Other Respiratory History: on CPAP Gastrointestinal History: Reports: Chronic Diarrhea, Diverticulosis Genitourinary History: Reports: Urinary Incontinence DIRECTOR REGULATORY AFFAIRS History: Reports: Musculoskeletal History: Reports: Fracture Other Musculoskeletal History: hx: Fractured wrists, fractured foot Neurological History: Reports: CVA (1 year ago, 2017), Vertigo Psychiatric History: Reports: Anxiety, Depression Endocrine/Metabolic History: Reports: Hypothyroidism Hematologic History: Reports: None Oncologic (Cancer) History: Reports: Squamous Cell Carcinoma Other Oncologic History: hx: Skin cancer removed, "eye cancer" Dermatologic History: Reports: Eczema - Infectious Disease History Infectious Disease History: Reports: Chicken Pox, Measles, Mumps, Shingles - Past Surgical History HEENT Surgical History: Reports: Cataract Surgery, Other (See Below) GI Surgical History: Reports: Appendectomy, Cholecystectomy Female Surgical History: Reports: Hysterectomy, Salpingo-Oophorectomy Musculoskeletal Surgical History: Reports: Shoulder Replacement Social & Family History - Family History Family Medical History: Noncontributory Cardiac: Reports: VA Psychiatric: Reports: Anxiety, Depression Oncologic: Reports: Bone, Colon, Leukemia, Skin - Caffeine Use Caffeine Use: Reports: None Caffeine Use Comment: rarely drinks tea - Living Situation & Occupation Living situation: Reports: Alone Occupation: Retired Review of Systems - Review of Systems Review Of Systems: See Below ED EXAM, GENERAL - Physical Exam Exam: See Below Course - Vital Signs Last Recorded V/S: Last Vital Signs Temp 97.3 F 10/22/19 16:12 Pulse 106 H 10/22/19 16:12 Resp 16 10/22/19 16:12 BP 130/76 10/22/19 16:12 Pulse Ox 94 L 10/22/19 16:12 - Orders/Labs/Meds Orders: Active Orders 24 hr Category Date Time Status EKG Documentation Completion [RC] STAT Care 10/22/19 16:16 Active Labs: Laboratory Tests 10/22/19 10/22/19 10/22/19 Range/Units 16:55 16:55 18:05 WBC 7.59 (4.0-11.0) K/uL RBC 5.24 (4.30-5.90) M/uL Hgb 15.4 (12.0-16.0) g/dL Hct 47.4 H (36.0-46.0) % MCV 90.5 (80.0-98.0) fL MCH 29.4 (27.0-32.0) pg MCHC 32.5 (31.0-37.0) g/dL RDW Std Deviation 51.1 (28.0-62.0) fl RDW Coeff of Gillian 15 (11.0-15.0) % Plt Count 165 (150-400) K/uL MPV 10.10 (7.40-12.00) fL Neut % (Auto) 73.7 (48.0-80.0) % Lymph % (Auto) 17.1 (16.0-40.0) % [place] % (Auto) 7.5 (0.0-15.0) % Eos % (Auto) 1.4 (0.0-7.0) % Baso % (Auto) 0.3 (0.0-1.5) % Neut # (Auto) 5.6 (1.4-5.7) K/uL Lymph # (Auto) 1.3 (0.6-2.4) K/uL [place] # (Auto) 0.6 (0.0-0.8) K/uL Eos # (Auto) 0.1 (0.0-0.7) K/uL Baso # (Auto) 0.0 (0.0-0.1) K/uL Nucleated RBC % 0.0 /100WBC Nucleated RBCs # 0 K/uL INR 2.51 Sodium 142 (136-145) mmol/L Potassium 5.5 H (3.5-5.1) mmol/L Chloride 106 (98-107) mmol/L Carbon Dioxide 29.9 (21.0-32.0) mmol/L BUN 26 H (7.0-18.0) mg/dL Creatinine 1.1 H (0.6-1.0) mg/dL Est Cr Clr Drug Dosing TNP Estimated GFR (MDRD) 46.8 ml/min Glucose 112 H (74-106) mg/dL Calcium 9.5 (8.5-10.1) mg/dL Total Bilirubin 0.6 (0.2-1.0) mg/dL AST 23 (15-37) IU/L ALT 24 (14-63) IU/L Alkaline Phosphatase 83 (46-116) U/L Total Protein 7.4 (6.4-8.2) g/dL Albumin 3.7 (3.4-5.0) g/dL Globulin 3.7 (2.6-4.0) g/dL Albumin/Globulin Ratio 1.0 (0.9-1.6) Departure - Departure Time of Disposition: 18:51 Disposition: Home, Self-Care 01 Condition: Good Clinical Impression: Injury of left elbow - Discharge Information Referrals: Vaughn Clayton MD [Primary Care Provider] - Forms: ED Department Discharge Additional Instructions: Tylenol as needed Splint for comfort and protection Follow-up with Dr. Monson orthopedist next week ER referral [facility] [address], [address] [place] [address] my orthopedic The following information is given to patients seen in the emergency department who are being discharged to home. This information is to outline your options for follow-up care. We provide all patients seen in our emergency department with a follow-up referral. The need for follow-up, as well as the timing and circumstances, are variable depending upon the specifics of your emergency department visit. If you don't have a primary care physician on staff, we will provide you with a referral. We always advise you to contact your personal physician following an emergency department visit to inform them of the circumstance of the visit and for follow-up with them and/or the need for any referrals to a consulting specialist. The emergency department will also refer you to a specialist when appropriate. This referral assures that you have the opportunity for follow-up care with a specialist. All of these measure are taken in an effort to provide you with optimal care, which includes your follow-up. Under all circumstances we always encourage you to contact your private physician who remains a resource for coordinating your care. When calling for follow-up care, please make the office aware that this follow-up is from your recent emergency room visit. If for any reason you are refused follow-up, please contact the [facility] emergency department at and asked to speak to the emergency department charge nurse. - My Orders Last 24 Hours: My Active Orders 10/22/19 16:16 EKG Documentation Completion [RC] STAT - Assessment/Plan Last 24 Hours: My Active Orders 10/22/19 16:16 EKG Documentation Completion [RC] STAT
[2019-10-22 16:24] VITALS: BP 130/76; PULSE 106
--- NOTE | 2019-10-22 16:48 | CT ---
INDICATION: Trauma on blood thinners TECHNIQUE: CT cervical spine without contrast. COMPARISON: 04/06/2016 FINDINGS: Vertebral alignment: Alignment is normal. Vertebrae: There are no fractures or suspicious bony lesions. Discs and facet joints: Disc spaces and facets are within normal limits. Extraspinal findings: Prevertebral soft tissues, visualized airway, and visualized lungs are unremarkable. IMPRESSION: Unremarkable cervical spine CT. No evidence of acute cervical spine trauma. Dictated by Remigio Boyd MD @ 10/22/2019 4:45:32 PM Please note that all CT scans at this facility use dose modulation, iterative reconstruction, and/or weight-based dosing when appropriate to reduce radiation dose to as low as reasonably achievable. Dictated by: Remigio Boyd MD @ 10/22/2019 16:45:39 (Electronically Signed)
--- NOTE | 2019-10-22 16:50 | CT ---
INDICATION: Fall on blood thinners TECHNIQUE: CT head without contrast. COMPARISON: 02/04/2019 FINDINGS: CSF spaces: Within normal limits for age. Brain parenchyma: The rosenberg-white differentiation is normal. No sign of mass, hemorrhage, or midline shift. Stable changes of encephalomalacia high left parietal lobe. Periventricular white matter changes consistent chronic microvascular disease. Diffuse volume loss. Skull base and calvarium: The visualized paranasal sinuses and mastoid air cells demonstrate no acute or significant findings. The visualized orbits are grossly unremarkable. No skull fractures. Large left posterior parietal scalp hematoma. IMPRESSION: Large left posterior parietal scalp hematoma with no associated fractures or evidence of acute intracranial trauma. Stable changes of encephalomalacia left parietal lobe. Periventricular white matter changes consistent chronic microvascular disease. Diffuse volume loss. Dictated by Remigio Boyd MD @ 10/22/2019 4:48:22 PM Please note that all CT scans at this facility use dose modulation, iterative reconstruction, and/or weight-based dosing when appropriate to reduce radiation dose to as low as reasonably achievable. Dictated by: Remigio Boyd MD @ 10/22/2019 16:48:31 (Electronically Signed)
--- NOTE | 2019-10-22 17:12 | CR ---
INDICATION: Chest injury from fall TECHNIQUE: Chest radiograph 1 view COMPARISON: 02/04/2019 FINDINGS: Mediastinum: The mediastinum is normal in appearance. Mild stable cardiomegaly is present. There is a left cardiac pacer present with leads in the right atrium and right ventricle. Lung: Pleural parenchymal scarring is seen in the right lung base, slightly more nodular in appearance on prior exam. Right pleural thickening and small right pleural effusion present without change. No pneumothorax is identified. Bone and Soft tissue: Left shoulder arthroplasty is partially visualized. Moderate diffuse osteopenia is noted. IMPRESSIONS: 1. Pleural parenchymal scarring is seen in the right lung base, slightly more nodular in appearance on prior exam. Assessment chest CT recommended for further assessment. 2. Mild stable cardiomegaly is present. Dictated by Efrain Auguste MD @ 10/22/2019 5:10:37 PM Dictated by: Efrain Auguste MD @ 10/22/2019 17:10:39 (Electronically Signed)
--- NOTE | 2019-10-22 17:19 | CR ---
Indication: Fall Technique: Three views of the left elbow Comparison: None available Findings/Impression: Bones: A displaced fracture of the olecranon process and an apparent nondisplaced fracture component involving the articular surface of the proximal ulna. No dislocation. Intramedullary cement related to a left shoulder arthroplasty seen in the mid humeral diaphysis. An adjacent linear metallic density could be related to the arthroplasty. Small sclerotic foci in the mid to distal radial diaphysis, nonspecific. Joint spaces: An elbow joint effusion with elevation of the anterior and posterior elbow fat pads. Soft tissues: Soft tissue swelling about the elbow. Dictated by Richie Lopez MD @ 10/22/2019 5:16:22 PM Dictated by: Richie Lopez MD @ 10/22/2019 17:16:26 (Electronically Signed)
--- NOTE | 2019-10-22 17:21 | CR ---
Indication: Fall Technique: Four views of the right wrist Comparison: 11/03/2014 Findings/Impression: Bones: A chronic deformity of the distal radius and a chronic unfused fracture of the ulnar styloid. A chronic deformity of the base of the 1st metacarpal. No acute displaced fracture or dislocation seen. Joint spaces: Unremarkable. Soft tissues: Unremarkable. Dictated by Richie Lopez MD @ 10/22/2019 5:19:02 PM Dictated by: Richie Lopez MD @ 10/22/2019 17:20:10 (Electronically Signed)
--- NOTE | 2019-10-22 18:11 | CR ---
INDICATION: Trauma. TECHNIQUE: AP portable supine pelvis. FINDINGS: Large patient body habitus results an underpenetrated film partially obscuring fine bone detail. As visualized, no acute fractures or dislocations seen. Pelvic and proximal femoral enthesophytes are present. Surgical clips in the left and right inguinal regions. Degenerative changes of the lower lumbar spine. IMPRESSION: No acute finding. Dictated by Saud Myers MD @ Oct 22 2019 6:05PM Signed by Dr. Saud Myers @ Oct 22 2019 6:08PM
[2019-10-22 18:31] LABS: BLOOD UREA NITROGEN,BUN 26 mg/dL (7.0-18.0); CARBON DIOXIDE,CO2 29.9 mmol/L (21.0-32.0); CHLORIDE,CL 106 mmol/L (98-107); GLUCOSE RANDOM 112 mg/dL (74-106); POTASSIUM,K 5.5 mmol/L (3.5-5.1); SODIUM,NA 142 mmol/L (136-145)
== END 2019-10-22 19:22 | disposition home or self-care (01) ==
LOC: MW.ED 16:12
DX: S00.03XA Contusion of scalp, initial encounter (principal); S59.902A Unspecified injury of left elbow, initial encounter; I48.91 Unspecified atrial fibrillation; I11.0 Hypertensive heart disease with heart failure; I50.9 Heart failure, unspecified; E78.00 Pure hypercholesterolemia, unspecified; I25.2 Old myocardial infarction; J44.9 Chronic obstructive pulmonary disease, unspecified; G47.30 Sleep apnea, unspecified; F41.9 Anxiety disorder, unspecified; F32.9 Major depressive disorder, single episode, unspecified; E03.9 Hypothyroidism, unspecified; Z88.1 Allergy status to other antibiotic agents; Z86.73 Personal history of transient ischemic attack (TIA), and cerebral infarction without residual deficits; Z88.0 Allergy status to penicillin; Z88.8 Allergy status to other drugs, medicaments and biological substances; Z88.6 Allergy status to analgesic agent; Z79.02 Long term (current) use of antithrombotics/antiplatelets; Z79.899 Other long term (current) drug therapy; Z79.890 Hormone replacement therapy; Z79.01 Long term (current) use of anticoagulants; W01.0XXA Fall on same level from slipping, tripping and stumbling without subsequent striking against object, initial encounter; Y93.89 Activity, other specified; Y92.094 Garage of other non-institutional residence as the place of occurrence of the external cause
CPT/HCPCS: 29105; 36415; 70450; 70450-26; 71045; 71045-26; 72125; 72125-26; 72170; 72170-26; 73080-26-LT; 73080-LT; 73110-26-RT; 73110-RT; 80053; 85025; 85610; 93005; 99284; 99284-25

== ENCOUNTER 2019-10-28 11:59 | Observation (INO) | payer MEDICARE, BC ==
[2019-10-28] MEDS ORDERED: Sodium Chloride 0.9% 10 ML Syringe FLUSH PRN (12:02)
[2019-10-28] MEDS ORDERED: Sodium Chloride 0.9% 2.5 ML Syringe FLUSH PRN (12:02)
--- NOTE | 2019-10-28 12:20 | EDM.PDOC ---
ED HPI GENERAL MEDICAL PROBLEM - General Chief Complaint: Neuro Symptoms/Deficits Stated Complaint: DIZZINESS Time Seen by Provider: 10/28/19 12:07 Source of Information: Reports: Patient History Limitations: Reports: No Limitations - History of Present Illness INITIAL COMMENTS - FREE TEXT/NARRATIVE: HISTORY AND PHYSICAL: History of present illness: Patient is an 88 year old female who presents to the ED with c/o near syncope and dizziness. Patient was seen in our ED earlier this past week for a mechanical fall which resulted in an olecranon fracture. She had a full work up , including Head CT, was offered admission but declined. She states she has had increased dizziness since the fall. "Every time I get up I feel like I could pass out... I'm just so dizzy". She denies any new falls or actual syncopal events. She states she hasn't been eating or drinking as much as usual. Patient denies any fever, chills, headache, or change in vision. Denies any chest pain, back pain, shortness of breath or cough. Denies any abdominal pain, nausea, vomiting, diarrhea, constipation or dysuria. Has not noted any blood in urine or stool. Patient has been eating and drinking appropriately. Review of systems: As per history of present illness and below otherwise all systems reviewed and negative. Past medical history: As per history of present illness and as reviewed below otherwise noncontributory. Surgical history: As per history of present illness and as reviewed below otherwise noncontributory. Social history: See social history for further information Family history: As per history of present illness and as reviewed below otherwise noncontributory. Physical exam: General: Well developed and well nourished 88 year old female. A&O x 3, nontoxic appearing and in no acute distress. HEENT: Atraumatic, normocephalic, pupils equal and reactive bilaterally, negative for conjunctival pallor or scleral icterus, mucous membranes dry/tacky , TMs normal bilaterally, throat clear, neck supple, nontender, trachea midline. No drooling or trismus noted. No meningeal signs. No hot potato voice noted. Lungs: Clear to auscultation, breath sounds equal bilaterally, chest nontender. Heart: S1S2, regular rate and rhythm without overt murmur Abdomen: Soft, nondistended, nontender. Negative for masses or hepatosplenomegaly. Negative for costovertebral tenderness. Pelvis: Stable nontender. Skin: Intact, warm, dry. No lesions or rashes noted. Extremities: Atraumatic, moves all extremities per self without difficulty or deficits, negative for cords or calf pain. Neurovascular unremarkable. Neuro: Awake, alert, oriented. Cranial nerves II through XII unremarkable. Cerebellum unremarkable. Motor and sensory unremarkable throughout. Exam nonfocal. Notes: Patient did recently have a full work-up. She states she would like to be admitted, she is concerned about passing out or falling at home. Dr Tan was consulted on this case. Will admit for observation with telemetry. I will follow labs prior to going up to the med/surg floor. Diagnostics: CBC, CMP, UA, Troponin, EKG, CXR, orthostatic vital signs Therapeutics: NS @125mls/hr Impression: Near Syncope Plan: Observation admission with telemetry to Med/Surg Definitive disposition and diagnosis as appropriate pending reevaluation and review of above. - Related Data Allergies Allergy/AdvReac Type Severity Reaction Status Date / Time clarithromycin [From Biaxin] Allergy Cannot Verified 10/28/19 12:03 Remember metronidazole Allergy Cannot Verified 10/28/19 12:03 Remember oxaprozin [From Daypro] Allergy Cannot Verified 10/28/19 12:03 Remember Penicillins Allergy Swelling Verified 10/28/19 12:03 sulfasalazine Allergy Cannot Verified 10/28/19 12:03 [From Azulfidine] Remember Home Meds: Home Meds Albuterol [Ventolin HFA] 1 - 2 puff INH ASDIRECTED PRN 02/04/19 [History] Calcium Carbonate [Calcium] 600 mg PO DAILY 02/04/19 [History] Clopidogrel Bisulfate [Clopidogrel] 75 mg PO DAILY 02/04/19 [History] Furosemide 20 mg PO DAILY 02/04/19 [History] LORazepam 0.5 mg PO ASDIRECTED PRN 02/04/19 [History] Levothyroxine [Synthroid] 100 mcg PO ACBREAKFAST 02/04/19 [History] Losartan Potassium 100 mg PO DAILY 02/04/19 [History] Lutein/Minerals/Vit A,C & E [Ocuvite] 1 tab PO DAILY 02/04/19 [History] Magnesium Oxide 400 mg PO BID 02/04/19 [History] Metoprolol Succinate 50 mg PO DAILY 02/04/19 [History] Nitroglycerin [Nitrostat] 0.4 mg SL .EVERY 5 MINUTES PRN 02/04/19 [History] Pantoprazole [ProTONIX] 40 mg PO DAILY 02/04/19 [History] Potassium Chloride 10 meq PO BID 02/04/19 [History] Sertraline [Zoloft] 100 mg PO DAILY 02/04/19 [History] amLODIPine Besylate [Norvasc] 5 mg PO DAILY 02/04/19 [History] atorvaSTATin [Lipitor] 20 mg PO DAILY 02/04/19 [History] Warfarin Sodium [Jantoven] 2 mg PO ASDIRECTED 10/22/19 [History] Past Medical History HEENT History: Reports: Cataract, Impaired Vision, Macular Degeneration, Other ( See Below) Other HEENT History: Bilateral Hearing aids, when out [employer] on LEFT; vertigo Cardiovascular History: Reports: Afib, Angina, Arrhythmia, Heart Failure, High Cholesterol, Hypertension, PA Other Cardiovascular History: mini stroke 10 years ago Respiratory History: Reports: COPD, Sleep Apnea Other Respiratory History: on CPAP Gastrointestinal History: Reports: Chronic Diarrhea, Diverticulosis Genitourinary History: Reports: Urinary Incontinence 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: Musculoskeletal History: Reports: Fracture Other Musculoskeletal History: hx: Fractured wrists, fractured foot Neurological History: Reports: CVA, Vertigo Psychiatric History: Reports: Anxiety, Depression Endocrine/Metabolic History: Reports: Hypothyroidism Hematologic History: Reports: None Oncologic (Cancer) History: Reports: Squamous Cell Carcinoma Other Oncologic History: hx: Skin cancer removed, "eye cancer" Dermatologic History: Reports: Eczema - Infectious Disease History Infectious Disease History: Reports: Chicken Pox, Measles, Mumps, Shingles - Past Surgical History HEENT Surgical History: Reports: Cataract Surgery, Other (See Below) GI Surgical History: Reports: Appendectomy, Cholecystectomy Female Surgical History: Reports: Hysterectomy, Salpingo-Oophorectomy Musculoskeletal Surgical History: Reports: Shoulder Replacement Social & Family History - Family History Family Medical History: Noncontributory Cardiac: Reports: PA Psychiatric: Reports: Anxiety, Depression Oncologic: Reports: Bone, Colon, Leukemia, Skin - Tobacco Use Smoking Status *Q: Never Smoker - Caffeine Use Caffeine Use: Reports: None Caffeine Use Comment: rarely drinks tea - Recreational Drug Use Recreational Drug Use: No - Living Situation & Occupation Living situation: Reports: Alone Occupation: Retired ED ROS GENERAL - Review of Systems Review Of Systems: Comprehensive ROS is negative, except as noted in HPI. ED EXAM, NEURO - Physical Exam Exam: See Below (See dictation) Course - Vital Signs Last Recorded V/S: Last Vital Signs Temp 96.7 F 10/28/19 12:00 Pulse 88 10/28/19 12:00 Resp 16 10/28/19 12:00 BP 116/85 10/28/19 12:00 Pulse Ox 95 10/28/19 12:00 Orthostatic Blood Pressure [ 131/70 Sitting] Orthostatic Blood Pressure [ 115/61 Supine] - Orders/Labs/Meds Orders: Active Orders 24 hr Category Date Time Status Admission Status [Patient Status] [ADT] Stat ADT 10/28/19 12:38 Active EKG Documentation Completion [RC] STAT Care 10/28/19 12:02 Active Orthostatic Vital Signs [RC] ASDIRECTED Care 10/28/19 12:02 Active COMPREHENSIVE METABOLIC PN,CMP [CHEM] Stat Lab 10/28/19 13:06 Received TROPONIN I [CHEM] Stat Lab 10/28/19 13:06 Received UA RFX JON AND CULT IF INDIC [URIN] Stat Lab 10/28/19 12:02 Ordered Sodium Chloride 0.9% [Saline Flush] Med 10/28/19 12:02 Active 10 ml FLUSH ASDIRECTED PRN Sodium Chloride 0.9% [Saline Flush] Med 10/28/19 12:02 Active 2.5 ml FLUSH ASDIRECTED PRN Saline Lock Insert [OM.PC] Stat Oth 10/28/19 12:02 Ordered Medication Orders Sodium Chloride (Normal Saline) 1,000 mls @ 125 mls/hr IV STAT ONE Stop: 10/28/19 21:00 Last Admin: 10/28/19 13:06 Dose: 125 mls/hr Sodium Chloride (Saline Flush) 10 ml FLUSH ASDIRECTED PRN PRN Reason: Keep Vein Open Sodium Chloride (Saline Flush) 2.5 ml FLUSH ASDIRECTED PRN PRN Reason: Keep Vein Open Meds: Medications Generic Name Dose Route Start Last Admin Trade Name Freq PRN Reason Stop Dose Admin Sodium Chloride 1,000 mls @ 125 mls/hr 10/28/19 13:01 10/28/19 13:06 Normal Saline IV 10/28/19 21:00 125 mls/hr STAT ONE Administration Sodium Chloride 10 ml 10/28/19 12:02 Saline Flush FLUSH ASDIRECTED PRN Keep Vein Open Sodium Chloride 2.5 ml 10/28/19 12:02 Saline Flush FLUSH ASDIRECTED PRN Keep Vein Open Departure - Departure Time of Disposition: 13:54 Disposition: Home, Self-Care 01 Clinical Impression: Near syncope - Discharge Information Sepsis Event Note - Evaluation Sepsis Screening Result: No Definite Risk - Focused Exam Vital Signs: Vital Signs Temp Pulse Resp BP Pulse Ox 10/28/19 12:00 96.7 F 88 16 116/85 95 Date Exam was Performed: 10/28/19 Time Exam was Performed: 13:51 - My Orders Last 24 Hours: My Active Orders 10/28/19 12:02 EKG Documentation Completion [RC] STAT Orthostatic Vital Signs [RC] ASDIRECTED UA RFX JON AND CULT IF INDIC [URIN] Stat Sodium Chloride 0.9% [Saline Flush] 10 ml FLUSH ASDIRECTED PRN Sodium Chloride 0.9% [Saline Flush] 2.5 ml FLUSH ASDIRECTED PRN Saline Lock Insert [OM.PC] Stat 10/28/19 12:38 Admission Status [Patient Status] [ADT] Stat 10/28/19 13:06 COMPREHENSIVE METABOLIC PN,CMP [CHEM] Stat TROPONIN I [CHEM] Stat - Assessment/Plan Last 24 Hours: My Active Orders 10/28/19 12:02 EKG Documentation Completion [RC] STAT Orthostatic Vital Signs [RC] ASDIRECTED UA RFX JON AND CULT IF INDIC [URIN] Stat Sodium Chloride 0.9% [Saline Flush] 10 ml FLUSH ASDIRECTED PRN Sodium Chloride 0.9% [Saline Flush] 2.5 ml FLUSH ASDIRECTED PRN Saline Lock Insert [OM.PC] Stat 10/28/19 12:38 Admission Status [Patient Status] [ADT] Stat 10/28/19 13:06 COMPREHENSIVE METABOLIC PN,CMP [CHEM] Stat TROPONIN I [CHEM] Stat
[2019-10-28] MEDS ORDERED: Sodium Chloride 0.9% 1,000 ML IV ONE (13:01)
--- NOTE | 2019-10-28 13:03 | CR ---
EXAM DATE: 10/28/19 PATIENT'S AGE: 88 Chest: AP view of the chest was obtained. Comparison: Prior chest x-ray of 10/22/19. Heart is enlarged. Pleural thickening or effusion is seen within the right base. Atelectasis or scarring is noted within the right base. Findings are stable from previous exam. Previous pacemaker is noted. Left shoulder prosthesis is seen. Lungs otherwise are clear. Impression: 1. Findings as noted above. 2. No significant change from previous study is seen. 3. Nothing acute is seen when compared to prior chest x-ray. Diagnostic code #2 This report was dictated in [place] Standard Time Report Signed by Proxy. [facility]USRyan
[2019-10-28 14:11] LABS: BLOOD UREA NITROGEN,BUN 22 mg/dL (7.0-18.0); CHLORIDE,CL 106 mmol/L (98-107); GLUCOSE RANDOM 87 mg/dL (74-106); POTASSIUM,K 4.1 mmol/L (3.5-5.1); SODIUM,NA 145 mmol/L (136-145)
[2019-10-28] MEDS ORDERED: Acetaminophen 325 MG Tab PO PRN (14:13)
--- NOTE | 2019-10-28 15:36 | PCM.HP.2 ---
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 She fell at home a few days ago and was seen in the ED with thorough workup. Noted to have L olecranon fracture, and she followed up with Orthopedics yesterday. She returned to the ED because she just couldn't get up and move due to the severe dizziness and she was concerned she was going to fall. She denies pain medication use since injury. She reports she has seen PT in the past for Vertigo concerns, she has no taken any medication for this recently. She denies fevers, chills recent URI, no sore throat. No chest pain or SOB. NO palpitations. No abdominal pain or dysuria. No black of bloody BMs, no diarrhea. In the ED labwork WNL. BP 115-130 SBP. EKG AV paced. CXr negative. Head CT from previous ED visit 2 days ago, WNL. No new falls at home or injuries. Left Hand Pain Score (Numeric/FACES): 3 - Related Data Allergies/Adverse Reactions: Allergies Allergy/AdvReac Type Severity Reaction Status Date / Time clarithromycin [From Biaxin] Allergy Cannot Verified 10/28/19 15:08 Remember metronidazole Allergy Cannot Verified 10/28/19 15:08 Remember oxaprozin [From Daypro] Allergy Cannot Verified 10/28/19 15:08 Remember Penicillins Allergy Swelling Verified 10/28/19 15:08 sulfasalazine Allergy Cannot Verified 10/28/19 15:08 [From Azulfidine] Remember Home Medications: Home Meds Albuterol [Ventolin HFA] 1 - 2 puff INH ASDIRECTED PRN 02/04/19 [History] Calcium Carbonate [Calcium] 600 mg PO DAILY 02/04/19 [History] Clopidogrel Bisulfate [Clopidogrel] 75 mg PO DAILY 02/04/19 [History] Furosemide 20 mg PO DAILY 02/04/19 [History] LORazepam 0.5 mg PO ASDIRECTED PRN 02/04/19 [History] Levothyroxine [Synthroid] 100 mcg PO ACBREAKFAST 02/04/19 [History] Losartan Potassium 100 mg PO DAILY 02/04/19 [History] Lutein/Minerals/Vit A,C & E [Ocuvite] 1 tab PO DAILY 02/04/19 [History] Magnesium Oxide 400 mg PO BID 02/04/19 [History] Metoprolol Succinate 50 mg PO DAILY 02/04/19 [History] Nitroglycerin [Nitrostat] 0.4 mg SL .EVERY 5 MINUTES PRN 02/04/19 [History] Pantoprazole [ProTONIX] 40 mg PO DAILY 02/04/19 [History] Potassium Chloride 10 meq PO BID 02/04/19 [History] Sertraline [Zoloft] 100 mg PO DAILY 02/04/19 [History] amLODIPine Besylate [Norvasc] 5 mg PO DAILY 02/04/19 [History] atorvaSTATin [Lipitor] 20 mg PO DAILY 02/04/19 [History] Warfarin Sodium [Jantoven] 2 mg PO ASDIRECTED 10/22/19 [History] Past Medical History HEENT History: Reports: Cataract, Impaired Vision, Macular Degeneration, Other ( See Below) Other HEENT History: Bilateral Hearing aids, when out [employer] on LEFT; vertigo Cardiovascular History: Reports: Afib, Angina, Arrhythmia, Heart Failure, High Cholesterol, Hypertension, [place], Pacemaker Other Cardiovascular History: mini stroke 10 years ago Respiratory History: Reports: COPD, Sleep Apnea Other Respiratory History: on CPAP Gastrointestinal History: Reports: Chronic Diarrhea, Diverticulosis Genitourinary History: Reports: Urinary Incontinence 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: 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: Musculoskeletal History: Reports: Fracture Other Musculoskeletal History: hx: Left Fractured wrists, fractured foot Neurological History: Reports: CVA, Vertigo Psychiatric History: Reports: Anxiety, Depression Endocrine/Metabolic History: Reports: Hypothyroidism Hematologic History: Reports: None Oncologic (Cancer) History: Reports: Squamous Cell Carcinoma Other Oncologic History: hx: Skin cancer removed, "eye cancer" Dermatologic History: Reports: Eczema - Infectious Disease History Infectious Disease History: Reports: Chicken Pox, Measles, Mumps, Shingles - Past Surgical History HEENT Surgical History: Reports: Cataract Surgery, Other (See Below) Cardiovascular Surgical History: Reports: Pacer GI Surgical History: Reports: Appendectomy, Cholecystectomy Female Surgical History: Reports: Hysterectomy, Salpingo-Oophorectomy Musculoskeletal Surgical History: Reports: Shoulder Replacement Social & Family History - Family History Family Medical History: Noncontributory Cardiac: Reports: CA Psychiatric: Reports: Anxiety, Depression Oncologic: Reports: Bone, Colon, Leukemia, Skin - Tobacco Use Smoking Status *Q: Never Smoker - Caffeine Use Caffeine Use: Reports: None Caffeine Use Comment: rarely drinks tea - Recreational Drug Use Recreational Drug Use: No - Living Situation & Occupation Living situation: Reports: Alone Occupation: Retired H&P Review of Systems - Review of Systems: Review Of Systems: See Below General: Reports: No Symptoms. Denies: Fever, Chills, Malaise HEENT: Reports: Vertigo. Denies: Headaches, Sinus Congestion, Sore Throat, Visual Changes Pulmonary: Reports: No Symptoms. Denies: Shortness of Breath Cardiovascular: Reports: No Symptoms. Denies: Chest Pain, Edema, Lightheadedness Gastrointestinal: Reports: No Symptoms. Denies: Abdominal Pain, Black Stool, Bloody Stool Genitourinary: Reports: No Symptoms, Incontinence (at baseline). Denies: Dysuria, Frequency, Burning Skin: Reports: No Symptoms Psychiatric: Reports: No Symptoms Neurological: Reports: No Symptoms Hematologic/Lymphatic: Reports: No Symptoms Immunologic: Reports: No Symptoms Exam - Exam Exam: See Below - Vital Signs Vital Signs: Last Vital Signs Temp 97.3 F 10/28/19 14:00 Pulse 79 10/28/19 14:00 Resp 16 10/28/19 12:00 BP 143/60 H 10/28/19 14:00 Pulse Ox 92 L 10/28/19 14:00 Orthostatic Blood Pressure [ 131/70 Sitting] Orthostatic Blood Pressure [ 115/61 Supine] Weight: 61.235 kg - Exam General: Alert, Oriented, Cooperative HEENT: Conjunctiva Clear, Other (no nystagmus noted). No: Mucosa Moist & Nicholls ( dry lips and oropharynx) Neck: Supple, Trachea Midline Lungs: Clear to Auscultation, Normal Respiratory Effort Cardiovascular: Regular Rate, Regular Rhythm, Normal S1, Normal S2, Other ( pacer L chest) Extremities: Normal Inspection, Normal Range of Motion, Non-Tender, No Pedal Edema, Other (splint to L arm) Neuro Extensive - Mental Status: Alert, Oriented x3 Psychiatric: Alert, Normal Affect, Normal Mood - Patient Data Lab Results Last 24 hrs: Laboratory Results - last 24 hr 10/28/19 10/28/19 Range/Units 13:06 13:06 WBC 6.97 (4.0-11.0) K/uL RBC 5.17 (4.30-5.90) M/uL Hgb 15.3 (12.0-16.0) g/dL Hct 46.8 H (36.0-46.0) % MCV 90.5 (80.0-98.0) fL MCH 29.6 (27.0-32.0) pg MCHC 32.7 (31.0-37.0) g/dL RDW Std Deviation 50.6 (28.0-62.0) fl RDW Coeff of Gillian 15 (11.0-15.0) % Plt Count 182 (150-400) K/uL MPV 9.90 (7.40-12.00) fL Neut % (Auto) 75.5 (48.0-80.0) % Lymph % (Auto) 14.9 L (16.0-40.0) % Piatt % (Auto) 7.3 (0.0-15.0) % Eos % (Auto) 1.7 (0.0-7.0) % Baso % (Auto) 0.6 (0.0-1.5) % Neut # (Auto) 5.3 (1.4-5.7) K/uL Lymph # (Auto) 1.0 (0.6-2.4) K/uL Piatt # (Auto) 0.5 (0.0-0.8) K/uL Eos # (Auto) 0.1 (0.0-0.7) K/uL Baso # (Auto) 0.0 (0.0-0.1) K/uL Nucleated RBC % 0.0 /100WBC Nucleated RBCs # 0 K/uL Sodium 145 (136-145) mmol/L Potassium 4.1 (3.5-5.1) mmol/L Chloride 106 (98-107) mmol/L Carbon Dioxide 27.0 (21.0-32.0) mmol/L BUN 22 H (7.0-18.0) mg/dL Creatinine 1.0 (0.6-1.0) mg/dL Est Cr Clr Drug Dosing 30.16 mL/min Estimated GFR (MDRD) 52.2 ml/min Glucose 87 (74-106) mg/dL Calcium 8.7 (8.5-10.1) mg/dL Total Bilirubin 0.9 (0.2-1.0) mg/dL AST 21 (15-37) IU/L ALT 22 (14-63) IU/L Alkaline Phosphatase 84 (46-116) U/L Troponin I < 0.050 (0.000-0.056) ng/mL Total Protein 6.8 (6.4-8.2) g/dL Albumin 2.6 L (3.4-5.0) g/dL Globulin 4.2 H (2.6-4.0) g/dL Albumin/Globulin Ratio 0.6 L (0.9-1.6) Result Diagrams: 10/28/19 13:06 10/28/19 13:06 EKG INTERPRETATION Rhythm: Other (paced) Sepsis Event Note - Evaluation Sepsis Screening Result: No Definite Risk - Focused Exam Vital Signs: Vital Signs Temp Pulse Resp BP Pulse Ox 10/28/19 14:00 97.3 F 79 143/60 H 92 L 10/28/19 12:00 96.7 F 88 16 116/85 95 Date Exam was Performed: 10/28/19 Time Exam was Performed: 15:50 - Problem List (1) Dizziness SNOMED Code(s): 915871859, 463801699 ICD Code: R42 - DIZZINESS AND GIDDINESS Status: Acute Current Visit: Yes (2) Hx of fall SNOMED Code(s): 837452750 ICD Code: Z91.81 - HISTORY OF FALLING Status: Acute Current Visit: Yes (3) Generalized weakness SNOMED Code(s): 23729026 ICD Code: R53.1 - WEAKNESS Status: Acute Current Visit: No (4) Pacemaker SNOMED Code(s): 103076401 ICD Code: Z95.0 - PRESENCE OF CARDIAC PACEMAKER Status: Chronic Current Visit: Yes (5) Afib SNOMED Code(s): 06496155 ICD Code: I48.91 - UNSPECIFIED ATRIAL FIBRILLATION Status: Chronic Current Visit: No Qualifiers: Atrial fibrillation type: persistent (6) CAD (coronary artery disease) SNOMED Code(s): 66085232 ICD Code: I25.10 - ATHSCL HEART DISEASE OF [place] CORONARY ARTERY W/O ANG PCTRS Status: Chronic Current Visit: No Qualifiers: Coronary Disease-Associated Artery/Lesion type: [place] artery [place] vs. transplanted heart: [place] heart Associated angina: without angina Qualified Code(s): I25.10 - Atherosclerotic heart disease of [place] coronary artery without angina pectoris (7) CHF (congestive heart failure) SNOMED Code(s): 81750068 ICD Code: I50.9 - HEART FAILURE, UNSPECIFIED Status: Chronic Priority: High Current Visit: No (8) COPD (chronic obstructive pulmonary disease) SNOMED Code(s): 17906561 ICD Code: J44.9 - CHRONIC OBSTRUCTIVE PULMONARY DISEASE, UNSPECIFIED Status : Chronic Current Visit: No Qualifiers: COPD type: chronic bronchitis Chronic bronchitis type: simple Qualified Code(s): J41.0 - Simple chronic bronchitis (9) Dyslipidemia SNOMED Code(s): 279089449 ICD Code: E78.5 - HYPERLIPIDEMIA, UNSPECIFIED Status: Chronic Priority: Medium Current Visit: No (10) HTN (hypertension) SNOMED Code(s): 40536017 ICD Code: I10 - ESSENTIAL (PRIMARY) HYPERTENSION Status: Chronic Priority : Medium Current Visit: No Qualifiers: Hypertension type: essential hypertension Qualified Code(s): I10 - Essential (primary) hypertension (11) History of CVA (cerebrovascular accident) SNOMED Code(s): 420439467 ICD Code: Z86.73 - PRSNL HX OF TIA (TIA), AND CEREB INFRC W/O RESID DEFICITS Status: Chronic Current Visit: No (12) Hypothyroidism SNOMED Code(s): 99090493 ICD Code: E03.9 - HYPOTHYROIDISM, UNSPECIFIED Status: Chronic Current Visit: No Qualifiers: Hypothyroidism type: acquired Qualified Code(s): E03.9 - Hypothyroidism, unspecified (13) Sleep apnea SNOMED Code(s): 97447969 ICD Code: G47.30 - SLEEP APNEA, UNSPECIFIED Status: Chronic Priority: Medium Current Visit: No Qualifiers: Sleep apnea type: unspecified type Qualified Code(s): G47.30 - Sleep apnea , unspecified (14) Vertigo SNOMED Code(s): 445121715 ICD Code: R42 - DIZZINESS AND GIDDINESS Status: Chronic Current Visit: No Problem List Initiated/Reviewed/Updated: Yes Orders Last 24hrs: Active Orders 24 hr Category Date Time Status Admission Status [Patient Status] [ADT] Stat ADT 10/28/19 12:38 Active EKG Documentation Completion [RC] STAT Care 10/28/19 12:02 Active Intake and Output [RC] QSHIFT Care 10/28/19 14:12 Active Orthostatic Vital Signs [RC] ASDIRECTED Care 10/28/19 12:02 Active Orthostatic Vital Signs [RC] ASDIRECTED Care 10/28/19 14:12 Active Oxygen Therapy [RC] PRN Care 10/28/19 14:12 Active Telemetry Monitoring [Cardiac Monitoring] [RC] . Care 10/28/19 14:09 Active DIRECTED Up With Assistance [RC] ASDIRECTED Care 10/28/19 14:12 Active VTE/DVT Education [RC] PER UNIT ROUTINE Care 10/28/19 14:12 Active Vital Signs [RC] Q4H Care 10/28/19 14:12 Active Consult to Physical Therapy [PT Evaluation and Cons 10/28/19 14:10 Active Treatment] [CONS] Routine Heart Healthy Diet [DIET] Diet 10/28/19 Lunch Active INR,PT,PROTHROMBIN TIME [COAG] Routine Lab 10/28/19 15:23 Ordered UA RFX JON AND CULT IF INDIC [URIN] Stat Lab 10/28/19 12:02 Ordered Acetaminophen [Tylenol] Med 10/28/19 14:13 Active 650 mg PO Q4H PRN Calcium Carbonate [Tums] Med 10/29/19 09:00 Active 500 mg PO DAILY Levothyroxine [Synthroid] Med 10/29/19 07:30 Active 100 mcg PO ACBREAKFAST Metoprolol Succinate [Toprol XL] Med 10/29/19 09:00 Active 50 mg PO DAILY Pantoprazole [ProTONIX] Med 10/29/19 07:00 Active 40 mg PO DAILY@0700 Patient's Own Medication [Ptom] Med 10/29/19 09:00 Active 1 each PO DAILY Sertraline [Zoloft] Med 10/29/19 09:00 Active 100 mg PO DAILY Sodium Chloride 0.9% [Normal Saline] 1,000 ml Med 10/28/19 13:01 Active IV STAT Sodium Chloride 0.9% [Saline Flush] Med 10/28/19 12:02 Active 10 ml FLUSH ASDIRECTED PRN Sodium Chloride 0.9% [Saline Flush] Med 10/28/19 12:02 Active 2.5 ml FLUSH ASDIRECTED PRN Saline Lock Insert [OM.PC] Stat Oth 10/28/19 12:02 Ordered Resuscitation Status Routine Resus Stat 10/28/19 15:23 Ordered Medication Orders Acetaminophen (Tylenol) 650 mg PO Q4H PRN PRN Reason: Pain Calcium Carbonate/Glycine (Tums) 500 mg PO DAILY [facility] Sodium Chloride (Normal Saline) 1,000 mls @ 125 mls/hr IV STAT ONE Stop: 10/28/19 21:00 Last Admin: 10/28/19 13:06 Dose: 125 mls/hr Levothyroxine Sodium (Synthroid) 100 mcg PO ACBREAKFAST [facility] Metoprolol Succinate (Toprol Xl) 50 mg PO DAILY [facility] Pantoprazole Sodium (Protonix) 40 mg PO DAILY@0700 [facility] Lutein/Minerals/Vit (A,C & E 1 Tab) 1 each PO DAILY [facility] Sertraline HCl (Zoloft) 100 mg PO DAILY [facility] Sodium Chloride (Saline Flush) 10 ml FLUSH ASDIRECTED PRN PRN Reason: Keep Vein Open Sodium Chloride (Saline Flush) 2.5 ml FLUSH ASDIRECTED PRN PRN Reason: Keep Vein Open Assessment/Plan Comment:: This 88 year old female admitted with dizziness, worse then baseline 1. Dizziness: Reports dizziness with head movement. Denies chest pain or passing out. Will monitor on telemetry, consider pacemaker interrogation. PT to evaluate and treat. No recent narcotics for pain management of fx to L olecranon. 2. Dehydration: Mild will give 1 l overnight and monitor. VS. monitor labwork in am. Chronic PMH: HTN, CHF, Afib: Continue Home medications. With not eating or drinking much, will check INR to insure this is not supratherapeutic. VTE prophylaxis: Coumadin Dispo: 1 - Mortality Measure Prognosis:: Good
[2019-10-28] MEDS ORDERED: Sodium Chloride 0.9% 1,000 ML IV STA (15:39)
[2019-10-28] MEDS ORDERED: Albuterol 8 GM Inhaler INH PRN (15:48)
[2019-10-28] MEDS: Warfarin 2 MG Tab PO SCH (20:37)
[2019-10-29 06:49] LABS: POTASSIUM,K 4.3 mmol/L (3.5-5.1)
[2019-10-29] MEDS ORDERED: Pantoprazole 40 MG Tab.CR PO SCH (07:00)
[2019-10-29] MEDS ORDERED: Levothyroxine 100 MCG Tab PO SCH (07:30)
--- NOTE | 2019-10-29 08:15 | PCM.PRNOTE ---
- Free Text/Narrative Note: Device interrogation last interrogation 10/20/2019 DOS 10/28/2019 [employer] ModelAzure XT DR MRI [id number] Mode AAIR = DDDR LRL 60 bpm % paced V paced 14% intrinsic rhythm afib Battery life 14 years Atrial lead sensin.6 mV capture threshold: NA due to afib impedance: 589 Ventricular lead sensin mV capture threshold: 0.75 V@0.4 ms impedance: 589 afib since 08/2019 avg HR 80-100 Imp normally functioning PPM
--- NOTE | 2019-10-29 08:34 | PCM.SN ---
- Free Text/Narrative Note: #[id number]
[2019-10-29] MEDS ORDERED: atorvaSTATin 20 MG Tab PO SCH (09:00)
[2019-10-29] MEDS ORDERED: Clopidogrel 75 MG Tab PO SCH (09:00)
[2019-10-29] MEDS ORDERED: amLODIPine 5 MG Tab PO SCH (09:00)
[2019-10-29] MEDS ORDERED: Metoprolol Succinate 50 MG Tab.ER PO SCH (09:00)
[2019-10-29] MEDS ORDERED: Calcium Carbonate 500 MG Tab.Chew PO SCH (09:00)
[2019-10-29] MEDS ORDERED: Furosemide 20 MG Tab PO SCH (09:00)
[2019-10-29] MEDS ORDERED: Lutein/Minerals/Vit A,C & E 1 TAB PO SCH (09:00)
[2019-10-29] MEDS ORDERED: Losartan 50 MG Tab PO SCH (09:00)
[2019-10-29] MEDS ORDERED: Sertraline 100 MG Tab PO SCH (09:00)
--- NOTE | 2019-10-29 10:31 | CONS ---
DATE OF CONSULTATION: DATE OF : 1930 PRIMARY CARE PHYSICIAN: Vaughn Clayton M.D. REASON FOR CONSULTATION: Pacemaker interrogation, dizziness. HISTORY OF PRESENT ILLNESS: This is an 88-year-old female with history of hypertension; sleep apnea, on CPAP; history of COPD; nonobstructive CAD; and chronic persistent atrial fibrillation, status post [employer] dual-chamber pacemaker in July 2019. She has had chronic dizziness and the reason for the pacemaker because of tachy- bradycardia syndrome. Last January, she also suffered from acute thrombus in both SINGE MACHINE OPERATOR, SFA, and PFA. She has a SINGE MACHINE OPERATOR patch angioplasty and femoral endarterectomy, and she is on Coumadin since. After the pacemaker, she had been doing well for a while until October 22, a week ago, when she started having dizziness. She described the dizzy spell as a room spinning. It is getting worse when she is getting up or lying down, especially when she turned her face, and it lasted for a while, at least for 1 hour. Denied hearing loss or problem. Denied ear infection. She has been in atrial fibrillation since August. However, she does not have a dizzy spell all the time and it has seemed that the dizzy spell just happened 7 days ago, on October 22. Currently, she is in atrial fibrillation, and I checked the pacemaker, it is normally functioning. Her heart rate seemed to be between 80 to 100 from the pacemaker interrogation. PAST MEDICAL HISTORY: Including COPD; nonobstructive CAD; fall risk; chronic persistent atrial fibrillation; history of CVA; hypertension; sleep apnea, on CPAP; history of acute thrombus, bilateral SINGE MACHINE OPERATOR, status post thrombectomy, on the Coumadin; history of tachy-bradycardia syndrome, status post dual-chamber pacemaker in July 2019. Also, history of heart failure, preserved ejection fraction. ALLERGIES: She is allergic to Biaxin, Daypro, metronidazole, penicillin, sulfa drugs. CURRENT MEDICATIONS: Including albuterol, amlodipine 5 mg, atorvastatin 20 mg, Plavix 75 mg once a day, Lasix 20 mg once a day, levothyroxine 100 mcg once a day, Cozaar 100 mg once a day, Toprol-XL 50 mg once a day, sertraline 100 mg once a day, Coumadin. SURGICAL HISTORY: History of arterial embolectomy, appendectomy, cholecystectomy, gallbladder surgery, hand surgery, hysterectomy, oophorectomy, shoulder surgery, thyroid surgery, wrist fracture. FAMILY HISTORY: Mother had a history of cardiac disease, hypertension. Father had a history of cardiac disease. Brother and sister had a colon cancer. SOCIAL HISTORY: Nonsmoker. Denied drug use or alcohol use. REVIEW OF SYSTEMS: Except indicated in HPI, otherwise been negative. PHYSICAL EXAMINATION: VITAL SIGNS: 113/56, heart rate of 60 to 90. Orthostatic vital sign was negative one time. Respiratory rate is 18, O2 saturation is 95, temperature 96.6. HEENT: Not pale. No jaundice. No JVD. HEART: Normal S1, S2. Totally irregular. LUNGS: Clear. ABDOMEN: Soft, nontender. Bowel sounds are present. No hepatosplenomegaly. EXTREMITIES: Legs, no edema. INVESTIGATION: Pacemaker interrogation is normally functioning. She is in atrial fibrillation. EKG: V-paced with PVCs, underlying rhythm is atrial fibrillation. ASSESSMENT AND PLAN: This is an 88-year-old female with history of tachy-bradycardia syndrome; chronic persistent atrial fibrillation, status post dual-chamber pacemaker, who presented to the hospital with acute dizzy spell. She has been in atrial fibrillation since August 2010 and her heart rate is ranging between 80 to 100. She does not have dizzy spell all the time and is saying the dizzy spell started last Friday while she has an atrial fibrillation since August. I do feel that her dizzy spell is possibly from vertigo or inner ear problem. Orthostatic has been checked once, is negative. We could probably repeat it one more time. I do not think it is related to acute blood pressure, is more likely to be probably inner ear problem. She may be benefitted from being reevaluated by Neurology to see if any neurologic causes for her dizzy spell. I also mentioned to her that if she keeps falling, she should be in the higher retirement facility, but she declined. I do think that she just happened to have the acute thrombus event. She should be on the Coumadin for now even though she has the high-risk falls. MARCIE DAVILA /[id number]
[2019-10-29 11:56] VITALS: BP 149/79; PULSE 78
[2019-10-29] MEDS: Warfarin 2 MG Tab PO SCH (14:58)
--- NOTE | 2019-10-29 15:01 | PCM.DCSUM1 ---
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 She fell at home a few days ago and was seen in the ED with thorough workup. Noted to have L olecranon fracture, and she followed up with Orthopedics yesterday. She returned to the ED because she just couldn't get up and move due to the severe dizziness and she was concerned she was going to fall. She denies pain medication use since injury. She reports she has seen PT in the past for Vertigo concerns, she has no taken any medication for this recently. She denies fevers, chills recent URI, no sore throat. No chest pain or SOB. NO palpitations. No abdominal pain or dysuria. No black of bloody BMs, no diarrhea. In the ED labwork WNL. BP 115-130 SBP. EKG AV paced. CXr negative. Head CT from previous ED visit 2 days ago, WNL. No new falls at home or injuries. Diagnosis: Stroke: No - Discharge Data Discharge Date: 10/29/19 Discharge Disposition: Home, W Home Health Agency 06 Condition: Good - Referral to Home Health Date of Face to Face Encounter: 10/29/19 Reason for Homebound Status: Gregoria is homebound, needing assistance with walker and caregiver to drive her to appointments and do shopping for her. Primary Care Physician: Vaughn Clayton MD Skilled Need: She is in need of half-way to help monitor vital signs secondary to her known afib and recent pacemaker placement. She would also benefit from PT evaluation and treated for weakness, fait instablity and frequent falls as home. She would also benefit from OT evaluate and treatment for home safety assessment and help with ADLs as well. - Discharge Diagnosis/Problem(s) (1) Dizziness SNOMED Code(s): 687062176, 767324964 ICD Code: R42 - DIZZINESS AND GIDDINESS Status: Acute Current Visit: Yes (2) Hx of fall SNOMED Code(s): 055419625 ICD Code: Z91.81 - HISTORY OF FALLING Status: Acute Current Visit: Yes (3) Generalized weakness SNOMED Code(s): 54748705 ICD Code: R53.1 - WEAKNESS Status: Acute Current Visit: No (4) Pacemaker SNOMED Code(s): 436189738 ICD Code: Z95.0 - PRESENCE OF CARDIAC PACEMAKER Status: Chronic Current Visit: Yes (5) Afib SNOMED Code(s): 09536541 ICD Code: I48.91 - UNSPECIFIED ATRIAL FIBRILLATION Status: Chronic Current Visit: No Qualifiers: Atrial fibrillation type: persistent (6) CAD (coronary artery disease) SNOMED Code(s): 83915154 ICD Code: I25.10 - ATHSCL HEART DISEASE OF [place] CORONARY ARTERY W/O ANG PCTRS Status: Chronic Current Visit: No Qualifiers: Coronary Disease-Associated Artery/Lesion type: [place] artery [place] vs. transplanted heart: [place] heart Associated angina: without angina Qualified Code(s): I25.10 - Atherosclerotic heart disease of [place] coronary artery without angina pectoris (7) CHF (congestive heart failure) SNOMED Code(s): 75237711 ICD Code: I50.9 - HEART FAILURE, UNSPECIFIED Status: Chronic Priority: High Current Visit: No (8) COPD (chronic obstructive pulmonary disease) SNOMED Code(s): 47692981 ICD Code: J44.9 - CHRONIC OBSTRUCTIVE PULMONARY DISEASE, UNSPECIFIED Status : Chronic Current Visit: No Qualifiers: COPD type: chronic bronchitis Chronic bronchitis type: simple Qualified Code(s): J41.0 - Simple chronic bronchitis (9) Dyslipidemia SNOMED Code(s): 571713987 ICD Code: E78.5 - HYPERLIPIDEMIA, UNSPECIFIED Status: Chronic Priority: Medium Current Visit: No (10) HTN (hypertension) SNOMED Code(s): 85106350 ICD Code: I10 - ESSENTIAL (PRIMARY) HYPERTENSION Status: Chronic Priority : Medium Current Visit: No Qualifiers: Hypertension type: essential hypertension Qualified Code(s): I10 - Essential (primary) hypertension (11) History of CVA (cerebrovascular accident) SNOMED Code(s): 857492195 ICD Code: Z86.73 - PRSNL HX OF TIA (TIA), AND CEREB INFRC W/O RESID DEFICITS Status: Chronic Current Visit: No (12) Hypothyroidism SNOMED Code(s): 64921541 ICD Code: E03.9 - HYPOTHYROIDISM, UNSPECIFIED Status: Chronic Current Visit: No Qualifiers: Hypothyroidism type: acquired Qualified Code(s): E03.9 - Hypothyroidism, unspecified (13) Sleep apnea SNOMED Code(s): 28183295 ICD Code: G47.30 - SLEEP APNEA, UNSPECIFIED Status: Chronic Priority: Medium Current Visit: No Qualifiers: Sleep apnea type: unspecified type Qualified Code(s): G47.30 - Sleep apnea , unspecified (14) Vertigo SNOMED Code(s): 588582312 ICD Code: R42 - DIZZINESS AND GIDDINESS Status: Chronic Current Visit: No - Patient Summary/Data Consults: Consultations 10/28/19 14:10 Consult to Physical Therapy [PT Evaluation and Treatment] [CONS] Routine 10/28/19 16:49 Consult to Physician [CONS] Routine - Patient Instructions Diet: Heart Healthy Diet Activity: No Strenuous Activities Driving: Do Not Drive Showering/Bathing: May Shower - Discharge Plan *PRESCRIPTION DRUG MONITORING PROGRAM REVIEWED*: Not Applicable *COPY OF PRESCRIPTION DRUG MONITORING REPORT IN PATIENT DIEUDONNE: Not Applicable Home Medications: Home Meds Albuterol [Ventolin HFA] 1 - 2 puff INH ASDIRECTED PRN 02/04/19 [History] Calcium Carbonate [Calcium] 600 mg PO DAILY 02/04/19 [History] Clopidogrel Bisulfate [Clopidogrel] 75 mg PO DAILY 02/04/19 [History] Furosemide 20 mg PO DAILY 02/04/19 [History] LORazepam 0.5 mg PO ASDIRECTED PRN 02/04/19 [History] Levothyroxine [Synthroid] 100 mcg PO ACBREAKFAST 02/04/19 [History] Losartan Potassium 100 mg PO DAILY 02/04/19 [History] Lutein/Minerals/Vit A,C & E [Ocuvite] 1 tab PO DAILY 02/04/19 [History] Magnesium Oxide 400 mg PO BID 02/04/19 [History] Metoprolol Succinate 50 mg PO DAILY 02/04/19 [History] Nitroglycerin [Nitrostat] 0.4 mg SL .EVERY 5 MINUTES PRN 02/04/19 [History] Pantoprazole [ProTONIX] 40 mg PO DAILY 02/04/19 [History] Potassium Chloride 10 meq PO BID 02/04/19 [History] Sertraline [Zoloft] 100 mg PO DAILY 02/04/19 [History] amLODIPine Besylate [Norvasc] 5 mg PO DAILY 02/04/19 [History] Warfarin Sodium [Jantoven] 4 mg PO DAILY 10/22/19 [History] Alendronate Sodium [Alendronate] 70 mg PO DAILY 10/28/19 [History] Budesonide/Formoterol Fumarate [Symbicort 160-4.5 Mcg Inhaler] 2 puff IH BID 11/04 [History] Calcium/Magnesium/Zinc [Nxyfmia-Uzyqwzijs-Lorz] 1 tab PO DAILY 10/28/19 [History ] Cholestyramine [Cholestyramine Resin] 4 gm MC ASDIRECTED PRN 10/28/19 [History] Citalopram [Citalopram HBr] 20 mg PO DAILY 10/28/19 [History] Dorzolamide/Timolol/Pf [Timolol 0.5%-Dorzolamide 2%] 1 drop OP DAILY 10/28/19 [ History] Oxybutynin [Oxybutynin ER] 10 mg PO DAILY 10/28/19 [History] Prednisolone Acetate/Pf [Prednisolone Acet 1% Eye Drop] 1 drop OP DAILY PRN 11/04 [History] Quinapril [Accupril] 20 mg PO DAILY 10/28/19 [History] Triamcinolone Acetonide [Triamcinolone Acetonide 0.5%] 1 applic TOP DAILY [History] Oxygen Therapy Mode: Room Air Patient Handouts: Near-Syncope, [id number] Referrals: [facility] [Outside] Vaughn Clayton MD [Primary Care Provider] - 11/01/19 1:15 pm - Discharge Summary/Plan Comment DC Time >30 min.: No Discharge Summary/Plan Comment: Admitting Diagnoses: Vertigo Dehydration Discharge Diagnoses: Vertigo- improved to baseline Dehydration- resolved Other PMH: Hx CVA Hx Frequent falls Recent L olecranon fx with splinting HTN CHF COPD CAD Afib Recent pacemaker placement GLENDY Gregoria was admitted secondary to worsening of dizziness. Denied another fall since being seen in the ED for fall on 10/22. She reports she just feels very dizzy, like the room is spinning. She was treated with gentle IV fluids overnight. This morning she reports nice improvement in dizziness and that it is back to her baseline. She was evaluated by PT, who recommended outpatient treatment for balance and unsteady gait. no BPPV. I discussed the need for Home Health with PT and OT to evaluate and treat. I did recommend moving into possible assisted living due to frequent falls, she stated "I will live and in my home." She is ok with Home Health and is eager to have PT/OT. I spoke with family at lengths regarding these services. She also reports some pain and numbness to R hand, which has improved today. This was injured as well during fall, Xrays revealed no acute concerns old chronic fractures. Head CT again was negative, showing an old L infarct and no hemorrhage. She will be discharged home today. Continue all home medications. Return to see PCP as previously scheduled Prior to discharge, I was asked to speak with Gregoria and family as they had concerns. Gregoria' son Pat asked her if he could tell and then he stated "She doesn't know if she is ready to go home today." I offered for her to stay another night for observation and care. She declined immediately and said "I will be alright." we discussed her concerns and how she was feeling, she reports she still has the dizziness, but that is it at her baseline, the vertigo she normally deals with. Family was concerned about the R hand numbness. We discussed, symptoms didn't make a stroke, CT did not show this, just an old stroke. MRI is not available due to her having a pacemaker. But to be assured she is on appropriate medications to help prevent strokes. We discussed PT/OT evaluation with Home Health will be next week as well as follow up with Dr Clayton. Gregoria is alert and oriented and again was offered to stay overnight again and she declined. Family is agreeable and will take patient home. They did ask for Neurology referral to see as outpatient. I did provide this and nurse will call with the soonest appointment. No further questions or concerns prior to discharge. - General Info Date of Service: 10/29/19 Admission Dx/Problem (Free Text: Admission Diagnosis/Problem Admission Diagnosis/Problem Near syncope - Review of Systems HEENT: Reports: Glasses. Denies: Visual Changes Pulmonary: Reports: No Symptoms. Denies: Shortness of Breath Cardiovascular: Reports: No Symptoms. Denies: Chest Pain Gastrointestinal: Reports: No Symptoms. Denies: Abdominal Pain, Nausea, Vomiting Musculoskeletal: Reports: No Symptoms Skin: Reports: No Symptoms Neurological: Reports: Dizziness (intermittent) Psychiatric: Reports: No Symptoms - Patient Data Vitals - Most Recent: Last Vital Signs Temp 97.1 F 10/29/19 11:00 Pulse 78 10/29/19 11:00 Resp 16 10/29/19 11:00 BP 149/79 H 10/29/19 11:00 Pulse Ox 93 L 10/29/19 07:56 Orthostatic Blood Pressure [ 100/58 Standing] Orthostatic Blood Pressure [ 113/67 Sitting] Orthostatic Blood Pressure [ 97/66 Supine] Weight - Most Recent: 61.235 kg I&O - Last 24 hours: Intake & Output 10/29/19 10/29/19 10/29/19 06:59 14:59 22:59 Intake Total 1355 700 Output Total 150 0 Balance 1205 700 Lab Results - Last 24 hrs: Laboratory Results - last 24 hr 10/28/19 10/28/19 10/29/19 Range/Units 16:25 18:10 06:09 WBC 6.09 (4.0-11.0) K/uL RBC 4.72 (4.30-5.90) M/uL Hgb 13.8 (12.0-16.0) g/dL Hct 43.8 (36.0-46.0) % MCV 92.8 (80.0-98.0) fL MCH 29.2 (27.0-32.0) pg MCHC 31.5 (31.0-37.0) g/dL RDW Std Deviation 51.1 (28.0-62.0) fl RDW Coeff of Gillian 15 (11.0-15.0) % Plt Count 187 (150-400) K/uL MPV 10.20 (7.40-12.00) fL Neut % (Auto) 68.0 (48.0-80.0) % Lymph % (Auto) 22.0 (16.0-40.0) % [place] % (Auto) 7.2 (0.0-15.0) % Eos % (Auto) 2.1 (0.0-7.0) % Baso % (Auto) 0.7 (0.0-1.5) % Neut # (Auto) 4.1 (1.4-5.7) K/uL Lymph # (Auto) 1.3 (0.6-2.4) K/uL [place] # (Auto) 0.4 (0.0-0.8) K/uL Eos # (Auto) 0.1 (0.0-0.7) K/uL Baso # (Auto) 0.0 (0.0-0.1) K/uL Nucleated RBC % 0.0 /100WBC Nucleated RBCs # 0 K/uL INR 1.31 Sodium (136-145) mmol/L Potassium (3.5-5.1) mmol/L Chloride (98-107) mmol/L Carbon Dioxide (21.0-32.0) mmol/L BUN (7.0-18.0) mg/dL Creatinine (0.6-1.0) mg/dL Est Cr Clr Drug Dosing mL/min Estimated GFR (MDRD) ml/min Glucose (74-106) mg/dL Calcium (8.5-10.1) mg/dL Urine Color YELLOW Urine Appearance CLEAR Urine pH 6.0 (5.0-8.0) Ur Specific [place] >= 1.030 (1.001-1.035) Urine Protein NEGATIVE (NEGATIVE) mg/dL Urine Glucose (UA) NEGATIVE (NEGATIVE) mg/dL Urine Ketones NEGATIVE (NEGATIVE) mg/dL Urine Occult Blood NEGATIVE (NEGATIVE) Urine Nitrite NEGATIVE (NEGATIVE) Urine Bilirubin NEGATIVE (NEGATIVE) Urine Urobilinogen 0.2 (<2.0) EU/dL Ur Leukocyte Esterase NEGATIVE (NEGATIVE) 10/29/19 10/29/19 Range/Units 06:09 06:09 WBC (4.0-11.0) K/uL RBC (4.30-5.90) M/uL Hgb (12.0-16.0) g/dL Hct (36.0-46.0) % MCV (80.0-98.0) fL MCH (27.0-32.0) pg MCHC (31.0-37.0) g/dL RDW Std Deviation (28.0-62.0) fl RDW Coeff of Gillian (11.0-15.0) % Plt Count (150-400) K/uL MPV (7.40-12.00) fL Neut % (Auto) (48.0-80.0) % Lymph % (Auto) (16.0-40.0) % [place] % (Auto) (0.0-15.0) % Eos % (Auto) (0.0-7.0) % Baso % (Auto) (0.0-1.5) % Neut # (Auto) (1.4-5.7) K/uL Lymph # (Auto) (0.6-2.4) K/uL [place] # (Auto) (0.0-0.8) K/uL Eos # (Auto) (0.0-0.7) K/uL Baso # (Auto) (0.0-0.1) K/uL Nucleated RBC % /100WBC Nucleated RBCs # K/uL INR 1.19 Sodium 145 (136-145) mmol/L Potassium 4.3 (3.5-5.1) mmol/L Chloride 109 H (98-107) mmol/L Carbon Dioxide 29.0 (21.0-32.0) mmol/L BUN 20 H (7.0-18.0) mg/dL Creatinine 1.0 (0.6-1.0) mg/dL Est Cr Clr Drug Dosing 30.16 mL/min Estimated GFR (MDRD) 52.2 ml/min Glucose 93 (74-106) mg/dL Calcium 8.5 (8.5-10.1) mg/dL Urine Color Urine Appearance Urine pH (5.0-8.0) Ur Specific [place] (1.001-1.035) Urine Protein (NEGATIVE) mg/dL Urine Glucose (UA) (NEGATIVE) mg/dL Urine Ketones (NEGATIVE) mg/dL Urine Occult Blood (NEGATIVE) Urine Nitrite (NEGATIVE) Urine Bilirubin (NEGATIVE) Urine Urobilinogen (<2.0) EU/dL Ur Leukocyte Esterase (NEGATIVE) Med Orders - Current: Current Medications Acetaminophen (Tylenol) 650 mg PO Q4H PRN PRN Reason: Pain Albuterol (Ventolin Hfa) 0 gm INH Q4HRRT PRN PRN Reason: Shortness of Breath Amlodipine Besylate (Norvasc) 5 mg PO DAILY [facility] Last Admin: 10/29/19 08:45 Dose: 5 mg Atorvastatin Calcium (Lipitor) 20 mg PO DAILY [facility] Last Admin: 10/29/19 08:45 Dose: 20 mg Calcium Carbonate/Glycine (Tums) 500 mg PO DAILY [facility] Last Admin: 10/29/19 08:50 Dose: Not Given Clopidogrel Bisulfate (Plavix) 75 mg PO DAILY [facility] Last Admin: 10/29/19 08:46 Dose: 75 mg Furosemide (Lasix) 20 mg PO DAILY [facility] Last Admin: 10/29/19 08:46 Dose: 20 mg Levothyroxine Sodium (Synthroid) 100 mcg PO ACBREAKFAST [facility] Last Admin: 10/29/19 06:32 Dose: 100 mcg Losartan Potassium (Cozaar) 100 mg PO DAILY [facility] Last Admin: 10/29/19 08:46 Dose: 100 mg Metoprolol Succinate (Toprol Xl) 50 mg PO DAILY [facility] Last Admin: 10/29/19 08:45 Dose: 50 mg Pantoprazole Sodium (Protonix) 40 mg PO DAILY@0700 [facility] Last Admin: 10/29/19 06:33 Dose: 40 mg Lutein/Minerals/Vit (A,C & E 1 Tab) 1 each PO DAILY [facility] Last Admin: 10/29/19 08:50 Dose: Not Given Sertraline HCl (Zoloft) 100 mg PO DAILY [facility] Last Admin: 10/29/19 08:45 Dose: 100 mg Sodium Chloride (Saline Flush) 10 ml FLUSH ASDIRECTED PRN PRN Reason: Keep Vein Open Sodium Chloride (Saline Flush) 2.5 ml FLUSH ASDIRECTED PRN PRN Reason: Keep Vein Open Warfarin Sodium (Coumadin) 4 mg PO DAILY@1400 [facility] Last Admin: 10/29/19 14:58 Dose: Not Given Discontinued Medications Sodium Chloride (Normal Saline) 1,000 mls @ 125 mls/hr IV STAT ONE Stop: 10/28/19 21:00 Last Admin: 10/28/19 13:06 Dose: 125 mls/hr Sodium Chloride (Normal Saline) 1,000 mls @ 75 mls/hr IV NOW STA Stop: 10/29/19 04:58 Last Admin: 10/28/19 16:14 Dose: 75 mls/hr - Exam General: Reports: Alert, Oriented, Cooperative, No Acute Distress Lungs: Reports: Clear to Auscultation, Normal Respiratory Effort Cardiovascular: Reports: Regular Rate, Irregular Rhythm GI/Abdominal Exam: Normal Bowel Sounds, Soft, Non-Tender Extremities: Normal Inspection, Normal Range of Motion Skin: Reports: Other (bruising to scalp and neck secondary to previous fall.) Neurological: Reports: No New Focal Deficit Psy/Mental Status: Reports: Alert, Normal Affect, Normal Mood
== END 2019-10-29 14:45 | disposition home health service (06) ==
LOC: MW.ED 11:59 → MW.MS 12:50
PROVIDERS: ADMIT Internal Medicine; ATTEND Internal Medicine
DX: R42 Dizziness and giddiness (principal); I25.10 Atherosclerotic heart disease of native coronary artery without angina pectoris; R53.1 Weakness; I48.91 Unspecified atrial fibrillation; J41.0 Simple chronic bronchitis; E78.5 Hyperlipidemia, unspecified; R29.6 Repeated falls; I11.0 Hypertensive heart disease with heart failure; I50.9 Heart failure, unspecified; E03.9 Hypothyroidism, unspecified; E86.0 Dehydration; G47.33 Obstructive sleep apnea (adult) (pediatric); Z91.81 History of falling; Z95.0 Presence of cardiac pacemaker; Z86.73 Personal history of transient ischemic attack (TIA), and cerebral infarction without residual deficits; Z79.02 Long term (current) use of antithrombotics/antiplatelets; Z79.899 Other long term (current) drug therapy
CPT/HCPCS: 36415; 71045; 80048; 80053; 81003; 84484; 85025; 85610; 93005; 96360; 96361; 97162; 99285; A9270; G0378; J7030; 99284